=== PATIENT | male | born 1940 | race African-American/Black ===

== ENCOUNTER 2017-07-19 09:19 | Emergency (ER) | payer MEDICARE, OTHER ==
--- NOTE | 2017-07-19 11:00 | ED ---
General Adult HPI - General Chief complaint: Psychiatric Symptoms Stated complaint: Mental Health Time Seen by Provider: 07/19/17 09:29 Source: patient, RN notes reviewed Mode of arrival: ambulatory Limitations: physical limitation - History of Present Illness Initial comments: Patient 76-year-old male who presents emergency room today in the custody of the police. Patient did call 911. He states he was trying to get hold of [facility] and they directed him to call 911. Patient does admit that he did make a statement that he was going to burn down the house with him in it. He states it 's been living with his brother over the last 2 months. States feels that his brother has been taking advantage of him and is worried that he will steal his bank book. He states that his brother continues to show him pictures of the family. 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 Since he does not know really is not familiar with these family members. Patient states he did make the statement that he would burn down the building. He states he has no thoughts of hurting himself or others at this time. He denies any other complaints or symptoms. Patient denies any recent fever, chills, shortness of breath, chest pain, back pain, abdominal pain, nausea or vomiting, numbness or tingling, dysuria or hematuria, constipation or diarrhea, headaches or visual changes, or any other complaints. - Related Data Home Medications Medication Instructions Recorded Confirmed Atenolol [Tenormin] 50 mg PO DAILY 07/19/17 07/19/17 Dorzolamide-Timolol 2%/0.5% 1 drop BOTH EYES BID 07/19/17 07/19/17 [dorzolamide-Timolol 2%/0.5%] Furosemide [Lasix] 20 mg PO DAILY@1100 07/19/17 07/19/17 Latanoprost [Xalatan 0.005%] 1 drop RIGHT EYE HS 07/19/17 07/19/17 Potassium Chloride [Klor-Con 20] 20 meq PO DAILY@1100 07/19/17 07/19/17 Simvastatin [Zocor] 10 mg PO HS 07/19/17 07/19/17 Allergies Allergy/AdvReac Type Severity Reaction Status Date / Time No Known Allergies Allergy Verified 07/19/17 09:41 Review of Systems ROS Statement: Those systems with pertinent positive or pertinent negative responses have been documented in the HPI. ROS Other: All systems not noted in ROS Statement are negative. Past Medical History Past Medical History: Hyperlipidemia, Hypertension History of Any Multi-Drug Resistant Organisms: Unobtainable Additional Past Surgical History / Comment(s): Colonoscopy Past Psychological History: Depression Smoking Status: Never smoker Past Alcohol Use History: None Reported Past Drug Use History: None Reported General Exam - General Exam Comments Initial Comments: General: The patient is awake and alert, in no distress, and does not appear acutely ill. Eye: Pupils are equal, round and reactive to light, extra-ocular movements are intact. No nystagmus. There is normal conjunctiva bilaterally. No signs of icterus. Ears, nose, mouth and throat: There are moist mucous membranes and no oral lesions. Neck: The neck is supple, there is no tenderness or JVD. Cardiovascular: There is a regular rate and rhythm. No murmur, rub or gallop is appreciated. Respiratory: Lungs are clear to auscultation, respirations are non-labored, breath sounds are equal. No wheezes, stridor, rales, or rhonchi. Musculoskeletal: Normal ROM, no tenderness. Strength 5/5. Sensation intact. Pulses equal bilaterally 2+. Neurological: A&O x 3. CN II-XII intact, There are no obvious motor or sensory deficits. Coordination appears grossly intact. Speech is normal. Skin: Skin is warm and dry and no rashes or lesions are noted. Limitations: physical limitation Course Vital Signs 07/19/17 07/19/17 09:23 12:11 Temperature 97.7 F 98.4 F Pulse Rate 58 L 56 L Respiratory 18 20 Rate Blood Pressure 185/91 143/94 O2 Sat by Pulse 98 99 Oximetry Medical Decision Making - Medical Decision Making Patient was seen by mental health here in the emergency room along with social service worker. At this time patient is not suicidal has no homicidal thoughts or ideation. He has been cleared by psych for discharge. Patient has no other complaints are the emergency room will be discharged advised follow-up with family doctor over the next 2 days. Advised return for any concerns. - Lab Data Lab Results 07/19/17 Range/Units 10:08 Urine Opiates Screen Not Detected (NotDetected) Ur Oxycodone Screen Not Detected (NotDetected) Urine Methadone Screen Not Detected (NotDetected) Ur Propoxyphene Screen Not Detected (NotDetected) Ur Barbiturates Screen Not Detected (NotDetected) U Tricyclic Antidepress Not Detected (NotDetected) Ur Phencyclidine Scrn Not Detected (NotDetected) Ur Amphetamines Screen Not Detected (NotDetected) U Methamphetamines Scrn Not Detected (NotDetected) U Benzodiazepines Scrn Not Detected (NotDetected) Urine Cocaine Screen Not Detected (NotDetected) U Marijuana (THC) Screen Not Detected (NotDetected) Disposition Clinical Impression: Well adult health check Narrative: Social work evaluation Disposition: HOME SELF-CARE Condition: Good Additional Instructions: Please follow-up family doctor over the next 2 days. Please return here to the emergency room for any other concerns. Referrals: Concepcion Miranda MD [Primary Care Provider] - 1-2 days Time of Disposition: 13:30
[2017-07-19 15:42] VITALS: BP 163/83; PULSE 60; RESP 18; TEMP 98
== END 2017-07-19 15:55 | disposition home or self-care (01) ==
LOC: EC 09:19
DX: Z00.8 Encounter for other general examination (principal); H54.8 Legal blindness, as defined in USA; E78.5 Hyperlipidemia, unspecified; I10 Essential (primary) hypertension; Z79.899 Other long term (current) drug therapy
CPT/HCPCS: 80306; 82075; 99284

== ENCOUNTER 2018-06-13 22:39 | Emergency (ER) | payer MEDICARE, OTHER ==
[2018-06-13 23:20] LABS: Appearance,Urine Clear (Clear); Bilirubin,Urine Negative (Negative); Blood,Urine Negative (Negative); Color,Urine Yellow; Glucose,Urine (UA) Negative (Negative); Ketones,Urine Negative (Negative); Leukocyte Esterase,Urine Negative (Negative); Nitrite,Urine Negative (Negative); PH, Urine 5.5 (5.0-8.0); Protein,Urine Negative (Negative); Specific Gravity,Urine 1.011 (1.001-1.035)
[2018-06-13 23:27] LABS: Amphetamine Screen,Urine Not Detected (NotDetected); Barbiturate Screen,Urine Not Detected (NotDetected); Benzodiazepines Screen,Urine Not Detected (NotDetected); Cocaine Screen,Urine Not Detected (NotDetected); Methadone Screen, Urine Not Detected (NotDetected); Opiate Screen,Urine Not Detected (NotDetected); Oxycodone Screen, Urine Not Detected (NotDetected); Phencyclidine Screen,Urine Not Detected (NotDetected); Tricyclic Antidepressant,Urine Not Detected (NotDetected); Urn Cannabinoid Scrn Not Detected (NotDetected)
--- NOTE | 2018-06-13 23:47 | XR ---
EXAMINATION TYPE: XR chest 2V DATE OF EXAM: 06/13/2018 COMPARISON: 04/04/2013 HISTORY: Altered mental status TECHNIQUE: Frontal and lateral views of the chest are obtained. FINDINGS: There is no heart failure nor confluent pneumonic infiltrate. Costophrenic angles are cheryl r. Bony thorax is intact. IMPRESSION: No active cardiopulmonary disease. No change.
--- NOTE | 2018-06-13 23:47 | ED ---
Psych HPI - General Source: patient, family Mode of arrival: wheelchair <Patrick Mendiola - Last Filed: 06/14/18 01:34> <Otoniel Caba - Last Filed: 06/14/18 03:26> - General Chief Complaint: Psychiatric Symptoms Stated Complaint: suicidal Time Seen by Provider: 06/13/18 22:59 - History of Present Illness Initial Comments: 77 years old male complaining about some confusion ongoing, he stated he has been more confused often he loses track of time. He denies any headaches no blurred vision no slurred speech no stiff neck no chest pain no shortness of breath is complaining about term poor appetite and some constipation but no abdominal pain no frequency urgency dysuria. He told his caregiver issac that he wants to jump in the river. He was attempted to jump in the few weeks ago but he got lost because she can't see well (Patrick Mendiola) - Related Data Home Medications Medication Instructions Recorded Confirmed Atenolol [Tenormin] 50 mg PO DAILY 07/19/17 06/13/18 Dorzolamide-Timolol 2%/0.5% 1 drop BOTH EYES BID 07/19/17 06/13/18 [dorzolamide-Timolol 2%/0.5%] Furosemide [Lasix] 20 mg PO DAILY 07/19/17 06/13/18 Latanoprost [Xalatan 0.005%] 1 drop RIGHT EYE HS 07/19/17 06/13/18 Potassium Chloride [Klor-Con 20] 20 meq PO DAILY@1100 07/19/17 06/13/18 Simvastatin [Zocor] 10 mg PO HS 07/19/17 06/13/18 Allergies Allergy/AdvReac Type Severity Reaction Status Date / Time No Known Allergies Allergy Verified 06/13/18 23:05 Review of Systems ROS Other: All systems not noted in ROS Statement are negative. <Patrick Mendiola - Last Filed: 06/14/18 01:34> ROS Other: All systems not noted in ROS Statement are negative. <Otoniel Caba - Last Filed: 06/14/18 03:26> ROS Statement: Those systems with pertinent positive or pertinent negative responses have been documented in the HPI. Past Medical History Past Medical History: Hyperlipidemia, Hypertension History of Any Multi-Drug Resistant Organisms: Unobtainable Additional Past Surgical History / Comment(s): Colonoscopy Past Psychological History: Depression Smoking Status: Never smoker Past Alcohol Use History: None Reported Past Drug Use History: None Reported <MauryPoPatrick - Last Filed: 06/14/18 01:34> General Exam Limitations: no limitations <MauryPatrick - Last Filed: 06/14/18 01:34> <Otoniel Caba - Last Filed: 06/14/18 03:26> - General Exam Comments Initial Comments: General: The patient is awake and alert, in no distress, and does not appear acutely ill. GCS is 15 Skin: Skin is warm and dry and no rashes or lesions are noted. Eye: Pupils are equal, round and reactive to light, extra-ocular movements are intact; there is normal conjunctiva bilaterally. Ears, nose, mouth and throat: There are moist mucous membranes and no oral lesions. Neck: The neck is supple, there is no tenderness no signs of meningitis Cardiovascular: There is a regular rate and rhythm. No murmur, rub or gallop is appreciated. Respiratory: To auscultation bilateral, no wheezing no rhonchi no distress respiratory miller noticed Gastrointestinal: Soft, non-distended, positive bowel sounds no guarding no rebounds. Back: There is no tenderness to palpation in the midline. There is no obvious deformity. Musculoskeletal: Normal ROM, no tenderness, There is no pedal edema. There is no calf tenderness or swelling. No cords were appreciated. Neurological: CN II-XII intact, Cranial nerves III through XII are intact. There are no obvious motor or sensory deficits. Coordination appears grossly intact. Speech is normal. Psychiatric: Cooperative, appropriate mood & affect, normal judgment. (Patrick Mendiola) Course <Patrick Mendiola - Last Filed: 06/14/18 01:34> <Otoniel Caba - Last Filed: 06/14/18 03:26> Vital Signs 06/13/18 22:42 Temperature 98.5 F Pulse Rate 56 L Respiratory 18 Rate Blood Pressure 156/107 O2 Sat by Pulse 97 Oximetry Considering his confusion, do a head CT and basic blood work and will consult EPS. Patient's CBC, CMP, urinalysis, chest x-ray, head CT is unremarkable will consult the EPS now EKG is sinus bradycardia ventricular rate is 62 [place] interval is 174, religious is 82 QT/QTc is 440/02/22/1950 CK G does not reveal any ST elevation or ST depression. Patient endorsed to Dr. Caba at 1:34 AM (Patrick Mendiola) Medical Decision Making - Lab Data Result diagrams: 06/13/18 23:30 06/13/18 23:30 <Patrick Mendiola - Last Filed: 06/14/18 01:34> - Lab Data Result diagrams: 06/13/18 23:30 06/13/18 23:30 <Otoniel Caba - Last Filed: 06/14/18 03:26> - Medical Decision Making Patient is sent out to me by previous shift physician. Briefly, patient is 77- year-old male who is reportedly suicidal. He allegedly went down to their attempt to jump into the river a suicidal attempt however he reports that he got lost and was just 1 [address]. Patient presents today because someone concerned that he was suicidal. Patient is not suicidal at this time. Patient does have a pedigree tracer that takes care of him. Patient is here today because he wants to be in a structured environment. Patient is reevaluated by myself not psychotic. Patient clear for discharge to care of pedigree tracer. They' re given outpatient psych information. (Otoniel Caba) - Lab Data Lab Results 06/13/18 06/13/18 06/13/18 Range/Units 23:05 23:05 23:05 WBC (3.8-10.6) k/uL RBC (4.30-5.90) m/uL Hgb (13.0-17.5) gm/dL Hct (39.0-53.0) % MCV (80.0-100.0) fL MCH (25.0-35.0) pg MCHC (31.0-37.0) g/dL RDW (11.5-15.5) % Plt Count (150-450) k/uL Neutrophils % % Lymphocytes % % Monocytes % % Eosinophils % % Basophils % % Neutrophils # (1.3-7.7) k/uL Lymphocytes # (1.0-4.8) k/uL Monocytes # (0-1.0) k/uL Eosinophils # (0-0.7) k/uL Basophils # (0-0.2) k/uL PT (9.0-12.0) sec INR (<1.2) APTT (22.0-30.0) sec Sodium (137-145) mmol/L Potassium (3.5-5.1) mmol/L Chloride (98-107) mmol/L Carbon Dioxide (22-30) mmol/L Anion Gap mmol/L BUN (9-20) mg/dL Creatinine (0.66-1.25) mg/dL Est GFR (CKD-EPI)AfAm (>60 ml/min/1.73 sqM) Est GFR (CKD-EPI)NonAf (>60 ml/min/1.73 sqM) Glucose (74-99) mg/dL Calcium (8.4-10.2) mg/dL Total Bilirubin (0.2-1.3) mg/dL AST (17-59) U/L ALT (21-72) U/L Alkaline Phosphatase (38-126) U/L Total Creatine Kinase (55-170) U/L CK-MB (CK-2) (0.0-2.4) ng/mL CK-MB (CK-2) Rel Index Troponin I (0.000-0.034) ng/mL Total Protein (6.3-8.2) g/dL Albumin (3.5-5.0) g/dL Urine Color Yellow Yellow Urine Appearance Clear Clear (Clear) Urine pH 5.5 5.5 (5.0-8.0) Ur Specific [place] 1.011 1.012 (1.001-1.035) Urine Protein Negative Negative (Negative) Urine Glucose (UA) Negative Negative (Negative) Urine Ketones Negative Negative (Negative) Urine Blood Negative Negative (Negative) Urine Nitrite Negative Negative (Negative) Urine Bilirubin Negative Negative (Negative) Urine Urobilinogen 2.0 2.0 (<2.0) mg/dL Ur Leukocyte Esterase Negative Negative (Negative) Urine Opiates Screen Not Detected (NotDetected) Ur Oxycodone Screen Not Detected (NotDetected) Urine Methadone Screen Not Detected (NotDetected) Ur Propoxyphene Screen Not Detected (NotDetected) Ur Barbiturates Screen Not Detected (NotDetected) U Tricyclic Antidepress Not Detected (NotDetected) Ur Phencyclidine Scrn Not Detected (NotDetected) Ur Amphetamines Screen Not Detected (NotDetected) U Methamphetamines Scrn Not Detected (NotDetected) U Benzodiazepines Scrn Not Detected (NotDetected) Urine Cocaine Screen Not Detected (NotDetected) U Marijuana (THC) Screen Not Detected (NotDetected) 06/13/18 06/13/18 06/13/18 Range/Units 23:30 23:30 23:30 WBC 3.6 L (3.8-10.6) k/uL RBC 4.26 L (4.30-5.90) m/uL Hgb 13.6 (13.0-17.5) gm/dL Hct 40.6 (39.0-53.0) % MCV 95.2 (80.0-100.0) fL MCH 32.0 (25.0-35.0) pg MCHC 33.7 (31.0-37.0) g/dL RDW 13.3 (11.5-15.5) % Plt Count 112 L (150-450) k/uL Neutrophils % 41 % Lymphocytes % 47 % Monocytes % 4 % Eosinophils % 6 % Basophils % 0 % Neutrophils # 1.5 (1.3-7.7) k/uL Lymphocytes # 1.7 (1.0-4.8) k/uL Monocytes # 0.2 (0-1.0) k/uL Eosinophils # 0.2 (0-0.7) k/uL Basophils # 0.0 (0-0.2) k/uL PT (9.0-12.0) sec INR (<1.2) APTT (22.0-30.0) sec Sodium 142 (137-145) mmol/L Potassium 3.8 (3.5-5.1) mmol/L Chloride 109 H (98-107) mmol/L Carbon Dioxide 28 (22-30) mmol/L Anion Gap 5 mmol/L BUN 11 (9-20) mg/dL Creatinine 0.90 (0.66-1.25) mg/dL Est GFR (CKD-EPI)AfAm >90 (>60 ml/min/1.73 sqM) Est GFR (CKD-EPI)NonAf 82 (>60 ml/min/1.73 sqM) Glucose 143 H (74-99) mg/dL Calcium 9.1 (8.4-10.2) mg/dL Total Bilirubin 0.6 (0.2-1.3) mg/dL AST 25 (17-59) U/L ALT 28 (21-72) U/L Alkaline Phosphatase 101 (38-126) U/L Total Creatine Kinase 82 (55-170) U/L CK-MB (CK-2) 0.5 (0.0-2.4) ng/mL CK-MB (CK-2) Rel Index 0.6 Troponin I <0.012 (0.000-0.034) ng/mL Total Protein 6.2 L (6.3-8.2) g/dL Albumin 4.1 (3.5-5.0) g/dL Urine Color Urine Appearance (Clear) Urine pH (5.0-8.0) Ur Specific [place] (1.001-1.035) Urine Protein (Negative) Urine Glucose (UA) (Negative) Urine Ketones (Negative) Urine Blood (Negative) Urine Nitrite (Negative) Urine Bilirubin (Negative) Urine Urobilinogen (<2.0) mg/dL Ur Leukocyte Esterase (Negative) Urine Opiates Screen (NotDetected) Ur Oxycodone Screen (NotDetected) Urine Methadone Screen (NotDetected) Ur Propoxyphene Screen (NotDetected) Ur Barbiturates Screen (NotDetected) U Tricyclic Antidepress (NotDetected) Ur Phencyclidine Scrn (NotDetected) Ur Amphetamines Screen (NotDetected) U Methamphetamines Scrn (NotDetected) U Benzodiazepines Scrn (NotDetected) Urine Cocaine Screen (NotDetected) U Marijuana (THC) Screen (NotDetected) 06/13/18 Range/Units 23:30 WBC (3.8-10.6) k/uL RBC (4.30-5.90) m/uL Hgb (13.0-17.5) gm/dL Hct (39.0-53.0) % MCV (80.0-100.0) fL MCH (25.0-35.0) pg MCHC (31.0-37.0) g/dL RDW (11.5-15.5) % Plt Count (150-450) k/uL Neutrophils % % Lymphocytes % % Monocytes % % Eosinophils % % Basophils % % Neutrophils # (1.3-7.7) k/uL Lymphocytes # (1.0-4.8) k/uL Monocytes # (0-1.0) k/uL Eosinophils # (0-0.7) k/uL Basophils # (0-0.2) k/uL PT 9.9 (9.0-12.0) sec INR 1.0 (<1.2) APTT 23.2 (22.0-30.0) sec Sodium (137-145) mmol/L Potassium (3.5-5.1) mmol/L Chloride (98-107) mmol/L Carbon Dioxide (22-30) mmol/L Anion Gap mmol/L BUN (9-20) mg/dL Creatinine (0.66-1.25) mg/dL Est GFR (CKD-EPI)AfAm (>60 ml/min/1.73 sqM) Est GFR (CKD-EPI)NonAf (>60 ml/min/1.73 sqM) Glucose (74-99) mg/dL Calcium (8.4-10.2) mg/dL Total Bilirubin (0.2-1.3) mg/dL AST (17-59) U/L ALT (21-72) U/L Alkaline Phosphatase (38-126) U/L Total Creatine Kinase (55-170) U/L CK-MB (CK-2) (0.0-2.4) ng/mL CK-MB (CK-2) Rel Index Troponin I (0.000-0.034) ng/mL Total Protein (6.3-8.2) g/dL Albumin (3.5-5.0) g/dL Urine Color Urine Appearance (Clear) Urine pH (5.0-8.0) Ur Specific [place] (1.001-1.035) Urine Protein (Negative) Urine Glucose (UA) (Negative) Urine Ketones (Negative) Urine Blood (Negative) Urine Nitrite (Negative) Urine Bilirubin (Negative) Urine Urobilinogen (<2.0) mg/dL Ur Leukocyte Esterase (Negative) Urine Opiates Screen (NotDetected) Ur Oxycodone Screen (NotDetected) Urine Methadone Screen (NotDetected) Ur Propoxyphene Screen (NotDetected) Ur Barbiturates Screen (NotDetected) U Tricyclic Antidepress (NotDetected) Ur Phencyclidine Scrn (NotDetected) Ur Amphetamines Screen (NotDetected) U Methamphetamines Scrn (NotDetected) U Benzodiazepines Scrn (NotDetected) Urine Cocaine Screen (NotDetected) U Marijuana (THC) Screen (NotDetected) Disposition <Patrick Mendiola - Last Filed: 06/14/18 01:34> Is patient prescribed a controlled substance at d/c from ED?: No Time of Disposition: 03:25 <Otoniel Caba - Last Filed: 06/14/18 03:26> Clinical Impression: Confusion, Suicidal ideations, Planning to commit suicide Disposition: HOME SELF-CARE Condition: Fair Instructions: Altered Mental Status (ED) Referrals: Concepcion Miranda MD [Primary Care Provider] - 1-2 days
[2018-06-13 23:52] LABS: Basophils % (A) 0 %; Eosinophils # (A) 0.2 k/uL (0-0.7); Eosinophils % (A) 6 %; HCT 40.6 % (39.0-53.0); HGB 13.6 gm/dL (13.0-17.5); Lymphocytes # (A) 1.7 k/uL (1.0-4.8); Lymphocytes % (A) 47 %; MCHC 33.7 g/dL (31.0-37.0); MCV 95.2 fL (80.0-100.0); Monocytes # (A) 0.2 k/uL (0-1.0); Monocytes % (A) 4 %; Neutrophils # (A) 1.5 k/uL (1.3-7.7); Neutrophils % (A) 41 %; Platelet Count 112 k/uL (150-450); RBC 4.26 m/uL (4.30-5.90); RDW 13.3 % (11.5-15.5); WBC 3.6 k/uL (3.8-10.6)
--- NOTE | 2018-06-13 23:58 | CT ---
EXAMINATION TYPE: CT brain wo con DATE OF EXAM: 06/13/2018 COMPARISON: None HISTORY: No prior, frequent confusion, depression CT DLP: 1133.30 mGycm Automated exposure control for dose reduction was used. FINDINGS: There is some cerebral cortical atrophy. There is no mass effect nor midline shift. There is no sign of intracranial hemorrhage. Calvarium is intact. IMPRESSION: CEREBRAL ATROPHY. NO ACUTE INTRACRANIAL ABNORMALITY.
[2018-06-14 00:03] LABS: ALT 28 U/L (21-72); AST 25 U/L (17-59); Albumin 4.1 g/dL (3.5-5.0); Alkaline Phosphatase 101 U/L (38-126); Anion Gap 5 mmol/L; Blood Urea Nitrogen 11 mg/dL (9-20); Calcium 9.1 mg/dL (8.4-10.2); Carbon Dioxide 28 mmol/L (22-30); Chloride 109 mmol/L (98-107); Glucose 143 mg/dL (74-99); Potassium 3.8 mmol/L (3.5-5.1); Sodium 142 mmol/L (137-145); Total Bilirubin 0.6 mg/dL (0.2-1.3); Total Protein 6.2 g/dL (6.3-8.2)
[2018-06-14 00:12] LABS: Creatine Kinase 82 U/L (55-170)
[2018-06-14 00:14] LABS: Partial Thromboplastin Time 23.2 sec (22.0-30.0); Prothrombin Time 9.9 sec (9.0-12.0)
[2018-06-14 00:23] LABS: Creatine Kinase MB 0.5 ng/mL (0.0-2.4); Troponin I <0.012 ng/mL (0.000-0.034)
[2018-06-14 00:39] LABS: Appearance,Urine Clear (Clear); Bilirubin,Urine Negative (Negative); Blood,Urine Negative (Negative); Color,Urine Yellow; Glucose,Urine (UA) Negative (Negative); Ketones,Urine Negative (Negative); Leukocyte Esterase,Urine Negative (Negative); Nitrite,Urine Negative (Negative); PH, Urine 5.5 (5.0-8.0); Protein,Urine Negative (Negative); Specific Gravity,Urine 1.012 (1.001-1.035)
[2018-06-14 03:58] VITALS: BP 155/92; PULSE 59; RESP 16; TEMP 97.6
== END 2018-06-14 04:04 | disposition home or self-care (01) ==
LOC: EC 22:39
DX: R45.851 Suicidal ideations (principal); R41.0 Disorientation, unspecified; R40.2412 Glasgow coma scale score 13-15, at arrival to emergency department; F32.9 Major depressive disorder, single episode, unspecified; E78.5 Hyperlipidemia, unspecified; I10 Essential (primary) hypertension; Z79.899 Other long term (current) drug therapy
CPT/HCPCS: 36415; 70450; 71046; 80053; 80306; 81003; 82075; 82550; 82553; 84484; 85025; 85610; 85730; 99285

== ENCOUNTER 2019-08-21 20:33 | Emergency (ER) | payer MEDICARE, OTHER ==
[2019-08-21 20:58] VITALS: BP 146/86; PULSE 60; RESP 18; TEMP 98
--- NOTE | 2019-08-21 22:07 | ED ---
General Adult HPI - General Chief complaint: Psychiatric Symptoms Stated complaint: Constipation Time Seen by Provider: 08/21/19 21:08 Source: patient, EMS Mode of arrival: EMS Limitations: no limitations - History of Present Illness Initial comments: 's patient is a 78-year-old man who complains of having problem passing bowel movement today. He states that he attempted to have bowel movement but the stool was very hard and he was having difficult time passing it. He states that it did seem to improve when he was some toilet paper and hold this against his anus. He states that this is been a problem today. He did have bowel movement 2 days ago. No abdominal pain. No vomiting. He did have some brief nausea. -: hour(s) Quality: sharp Consistency: now resolved Improves with: none Worsens with: none Associated Symptoms: denies other symptoms - Related Data Home Medications Medication Instructions Recorded Confirmed Atenolol [Tenormin] 50 mg PO DAILY 07/19/17 08/21/19 Dorzolamide-Timol 2.23%/0.68% 1 drop BOTH EYES BID 07/19/17 08/21/19 [dorzolamide-Timolol 2%/0.5%] Furosemide [Lasix] 20 mg PO DAILY 07/19/17 08/21/19 Latanoprost [Xalatan 0.005%] 1 drop RIGHT EYE HS 07/19/17 08/21/19 Potassium Chloride [Klor-Con 20] 20 meq PO DAILY@1100 07/19/17 08/21/19 Simvastatin [Zocor] 10 mg PO HS 07/19/17 08/21/19 Allergies Allergy/AdvReac Type Severity Reaction Status Date / Time No Known Allergies Allergy Verified 08/21/19 21:50 Review of Systems ROS Statement: Those systems with pertinent positive or pertinent negative responses have been documented in the HPI. ROS Other: All systems not noted in ROS Statement are negative. Constitutional: Denies: fever, chills Respiratory: Denies: cough, dyspnea Cardiovascular: Denies: chest pain, edema Gastrointestinal: Reports: as per HPI, nausea, constipation, other (Perianal pain). Denies: vomiting, diarrhea, hematemesis, melena, hematochezia Genitourinary: Denies: dysuria, hematuria, testicular pain Musculoskeletal: Denies: back pain Skin: Denies: rash Neurological: Denies: headache Past Medical History Past Medical History: Hyperlipidemia, Hypertension History of Any Multi-Drug Resistant Organisms: None Reported Additional Past Surgical History / Comment(s): Colonoscopy Past Psychological History: Depression Smoking Status: Never smoker Past Alcohol Use History: None Reported Past Drug Use History: None Reported General Exam General appearance: alert, in no apparent distress Head exam: Present: atraumatic, normocephalic Eye exam: Present: normal appearance. Absent: scleral icterus, conjunctival injection ENT exam: Present: normal oropharynx Neck exam: Present: normal inspection Respiratory exam: Present: normal lung sounds bilaterally. Absent: respiratory distress, wheezes, rales, rhonchi, stridor Cardiovascular Exam: Present: regular rate, normal rhythm, normal heart sounds. Absent: systolic murmur, diastolic murmur, rubs, gallop GI/Abdominal exam: Present: soft, normal bowel sounds. Absent: distended, tenderness, guarding, rebound, rigid, mass Rectal exam: Present: normal rectal tone, hemorrhoids. Absent: black stool, bl oody stool, fecal impaction, mass, tenderness Extremities exam: Present: normal inspection, normal capillary refill. Absent: pedal edema, calf tenderness Back exam: Present: normal inspection. Absent: CVA tenderness (R), CVA tenderness (L) Neurological exam: Present: alert Skin exam: Present: warm, dry, intact, normal color. Absent: rash Course Vital Signs 08/21/19 20:53 Temperature 98 F Pulse Rate 60 Respiratory 18 Rate Blood Pressure 146/86 O2 Sat by Pulse 96 Oximetry Medical Decision Making - Lab Data Result diagrams: 08/21/19 22:31 08/21/19 22:31 Lab Results 08/21/19 08/21/19 Range/Units 22:31 22:31 WBC 3.5 L (3.8-10.6) k/uL RBC 4.17 L (4.30-5.90) m/uL Hgb 13.2 (13.0-17.5) gm/dL Hct 40.8 (39.0-53.0) % MCV 97.7 (80.0-100.0) fL MCH 31.5 (25.0-35.0) pg MCHC 32.3 (31.0-37.0) g/dL RDW 13.5 (11.5-15.5) % Plt Count 128 L (150-450) k/uL Neutrophils % 43 % Lymphocytes % 44 % Monocytes % 4 % Eosinophils % 6 % Basophils % 0 % Neutrophils # 1.5 (1.3-7.7) k/uL Lymphocytes # 1.5 (1.0-4.8) k/uL Monocytes # 0.2 (0-1.0) k/uL Eosinophils # 0.2 (0-0.7) k/uL Basophils # 0.0 (0-0.2) k/uL Sodium 142 (137-145) mmol/L Potassium 3.9 (3.5-5.1) mmol/L Chloride 109 H (98-107) mmol/L Carbon Dioxide 26 (22-30) mmol/L Anion Gap 7 mmol/L BUN 7 L (9-20) mg/dL Creatinine 0.72 (0.66-1.25) mg/dL Est GFR (CKD-EPI)AfAm >90 (>60 ml/min/1.73 sqM) Est GFR (CKD-EPI)NonAf 89 (>60 ml/min/1.73 sqM) Glucose 109 H (74-99) mg/dL Calcium 9.2 (8.4-10.2) mg/dL Total Bilirubin 0.6 (0.2-1.3) mg/dL AST 20 (17-59) U/L ALT 18 L (21-72) U/L Alkaline Phosphatase 104 (38-126) U/L Total Protein 6.3 (6.3-8.2) g/dL Albumin 3.9 (3.5-5.0) g/dL TSH 1.930 (0.465-4.680) mIU/L Disposition Clinical Impression: Constipation Disposition: HOME SELF-CARE Condition: Good Instructions (If sedation given, give patient instructions): Constipation (DC) Is patient prescribed a controlled substance at d/c from ED?: No Referrals: None,Stated [Primary Care Provider] - 1-2 days
[2019-08-21 23:09] LABS: Basophils % (A) 0 %; Eosinophils # (A) 0.2 k/uL (0-0.7); Eosinophils % (A) 6 %; HCT 40.8 % (39.0-53.0); HGB 13.2 gm/dL (13.0-17.5); Lymphocytes # (A) 1.5 k/uL (1.0-4.8); Lymphocytes % (A) 44 %; MCH 31.5 pg (25.0-35.0); MCHC 32.3 g/dL (31.0-37.0); MCV 97.7 fL (80.0-100.0); Mean Platelet Volume 8.1; Monocytes # (A) 0.2 k/uL (0-1.0); Monocytes % (A) 4 %; Neutrophils # (A) 1.5 k/uL (1.3-7.7); Neutrophils % (A) 43 %; Platelet Count 128 k/uL (150-450); RBC 4.17 m/uL (4.30-5.90); RDW 13.5 % (11.5-15.5); WBC 3.5 k/uL (3.8-10.6)
[2019-08-21] MEDS ORDERED: NA PHOS,M-B/NA PHOS,DI-BA 133 ML ENEMA RECTAL STA (23:10)
[2019-08-21 23:20] LABS: ALT 18 U/L (21-72); AST 20 U/L (17-59); African American GFR (CKD) >90 (>60 ml/min/1.73 sqM); Albumin 3.9 g/dL (3.5-5.0); Alkaline Phosphatase 104 U/L (38-126); Anion Gap 7 mmol/L; Blood Urea Nitrogen 7 mg/dL (9-20); Calcium 9.2 mg/dL (8.4-10.2); Carbon Dioxide 26 mmol/L (22-30); Chloride 109 mmol/L (98-107); Glucose 109 mg/dL (74-99); Potassium 3.9 mmol/L (3.5-5.1); Sodium 142 mmol/L (137-145); Total Bilirubin 0.6 mg/dL (0.2-1.3); Total Protein 6.3 g/dL (6.3-8.2)
--- NOTE | 2019-08-21 23:53 | XR ---
EXAM: XR Abdomen, 1 View CLINICAL HISTORY: Vomiting. TECHNIQUE: Frontal supine view of the abdomen/pelvis. COMPARISON: 06/13/2018. 01/27/2015. FINDINGS: Lower thorax: Cardiomegaly. Intraperitoneal space: No free air. Gastrointestinal tract: Nonspecific bowel gas pattern. No dilation. Bones/joints: Osteopenia. Other findings: Moderate quantity of stool. IMPRESSION: Moderate quantity of stool. Nonspecific bowel gas pattern. No free air. No evidence of obstruction. Cardiomegaly.
[2019-08-22] MEDS ORDERED: PEG 3350-NA SULF,BICARB,CL/KCL 4,000 ML BOTTLE PO ONE (01:00)
== END 2019-08-22 02:32 | disposition home or self-care (01) ==
LOC: EC 20:33
DX: K59.00 Constipation, unspecified (principal); I10 Essential (primary) hypertension; E78.5 Hyperlipidemia, unspecified; Z79.899 Other long term (current) drug therapy
CPT/HCPCS: 36415; 74018; 80053; 82075; 84443; 85025; 99284

== ENCOUNTER 2019-11-30 07:31 | Emergency (ER) | payer MEDICARE, OTHER ==
[2019-11-30 07:45] VITALS: TEMP 98.2
[2019-11-30] MEDS ORDERED: SODIUM CHLORIDE 0.9% 1,000 ML IV STA (07:49)
[2019-11-30] MEDS ORDERED: MECLIZINE 12.5 MG TAB PO STA (07:49)
[2019-11-30] MEDS ORDERED: METOCLOPRAMIDE 5 MG/ML 2 ML VIAL IVP STA (07:49)
--- NOTE | 2019-11-30 07:59 | ED ---
General Adult HPI - General Chief complaint: Dizziness Stated complaint: Dizziness Time Seen by Provider: 11/30/19 07:35 Source: patient, EMS, RN notes reviewed Mode of arrival: EMS Limitations: no limitations - History of Present Illness Initial comments: Patient is a pleasant 79-year-old male presenting to the emergency Department with complaints of dizziness. Onset of symptoms was yesterday after going to the eye doctor. Patient is legally blind. Patient states when he gets up he is dizzy. Patient agrees dizziness as a spinning type sensation. Patient states symptoms resolved when he sits down. Patient did have a near fall yesterday, no injury. Patient denies any confusion or weakness. No speech problems. No history of similar symptoms previously. Patient is currently symptom-free lying in bed. - Related Data Home Medications Medication Instructions Recorded Confirmed Atenolol [Tenormin] 50 mg PO DAILY 07/19/17 08/21/19 Dorzolamide-Timol 2.23%/0.68% 1 drop BOTH EYES BID 07/19/17 08/21/19 [dorzolamide-Timolol 2%/0.5%] Furosemide [Lasix] 20 mg PO DAILY 07/19/17 08/21/19 Latanoprost [Xalatan 0.005%] 1 drop RIGHT EYE HS 07/19/17 08/21/19 Potassium Chloride [Klor-Con 20] 20 meq PO DAILY@1100 07/19/17 08/21/19 Simvastatin [Zocor] 10 mg PO HS 07/19/17 08/21/19 Previous Rx's Medication Instructions Recorded Meclizine [Antivert] 25 mg PO TID PRN #12 tab 11/30/19 Allergies Allergy/AdvReac Type Severity Reaction Status Date / Time No Known Allergies Allergy Verified 08/21/19 21:50 Review of Systems ROS Statement: Those systems with pertinent positive or pertinent negative responses have been documented in the HPI. ROS Other: All systems not noted in ROS Statement are negative. Constitutional: Denies: fever Eyes: Denies: eye pain ENT: Denies: ear pain Respiratory: Denies: cough Cardiovascular: Denies: chest pain Endocrine: Denies: fatigue Gastrointestinal: Denies: abdominal pain Genitourinary: Denies: dysuria Musculoskeletal: Denies: back pain Skin: Denies: rash Neurological: Reports: vertigo. Denies: weakness Past Medical History Past Medical History: Hyperlipidemia, Hypertension Additional Past Medical History / Comment(s): Pt legally blind History of Any Multi-Drug Resistant Organisms: None Reported Additional Past Surgical History / Comment(s): Colonoscopy Past Psychological History: Depression Smoking Status: Never smoker Past Alcohol Use History: None Reported Past Drug Use History: None Reported General Exam Limitations: no limitations General appearance: alert, in no apparent distress Head exam: Present: normocephalic Eye exam: Present: PERRL, other (Disconjugate case. ) ENT exam: Present: normal oropharynx Neck exam: Present: normal inspection Respiratory exam: Present: normal lung sounds bilaterally Cardiovascular Exam: Present: regular rate, normal rhythm GI/Abdominal exam: Present: soft. Absent: tenderness Extremities exam: Present: normal inspection Neurological exam: Present: alert, CN II-XII intact (Except for disconjugate gaze). Absent: motor sensory deficit Expanded Neurological exam: Present: protecting the airway Speech: Present: fluid speech Sensory exam: Upper Extremity Light Touch: Normal, Lower Extremity Light Touch: Normal Motor strength exam: RUE: 5, LUE: 5, RLE: 5, LLE: 5 Eye Response: (4) open spontaneously Motor Response: (6) obeys commands Verbal Response: (5) oriented Psychiatric exam: Present: normal affect, normal mood Skin exam: Present: normal color Course Vital Signs 11/30/19 11/30/19 11/30/19 07:34 08:30 09:00 Temperature 98.2 F Pulse Rate 56 L 58 L 56 L Respiratory 18 20 18 Rate Blood Pressure 186/108 181/110 208/114 O2 Sat by Pulse 100 98 98 Oximetry 11/30/19 11/30/19 09:30 10:00 Temperature Pulse Rate 58 L 61 Respiratory 17 14 Rate Blood Pressure 191/102 175/99 O2 Sat by Pulse 98 98 Oximetry EKG Findings - EKG Comments: EKG Findings:: Sinus bradycardia 55. MN 176. QRS 76. QT 432. QTC 413. Left axis. Normal QRS. No acute ST change. Medical Decision Making - Medical Decision Making Patient reevaluated and feeling better. Patient was able to ambulate without difficulty. Patient and gig tender were updated on results - Lab Data Result diagrams: 11/30/19 08:11 11/30/19 08:11 Lab Results 11/30/19 11/30/19 Range/Units 08:11 08:11 WBC 3.8 (3.8-10.6) k/uL RBC 4.14 L (4.30-5.90) m/uL Hgb 13.2 (13.0-17.5) gm/dL Hct 40.5 (39.0-53.0) % MCV 97.9 (80.0-100.0) fL MCH 32.0 (25.0-35.0) pg MCHC 32.7 (31.0-37.0) g/dL RDW 13.2 (11.5-15.5) % Plt Count 113 L (150-450) k/uL Neutrophils % 58 % Lymphocytes % 29 % Monocytes % 4 % Eosinophils % 7 % Basophils % 2 % Neutrophils # 2.2 (1.3-7.7) k/uL Lymphocytes # 1.1 (1.0-4.8) k/uL Monocytes # 0.2 (0-1.0) k/uL Eosinophils # 0.3 (0-0.7) k/uL Basophils # 0.1 (0-0.2) k/uL Sodium 144 (137-145) mmol/L Potassium 3.8 (3.5-5.1) mmol/L Chloride 110 H (98-107) mmol/L Carbon Dioxide 29 (22-30) mmol/L Anion Gap 5 mmol/L BUN 11 (9-20) mg/dL Creatinine 0.69 (0.66-1.25) mg/dL Est GFR (CKD-EPI)AfAm >90 (>60 ml/min/1.73 sqM) Est GFR (CKD-EPI)NonAf >90 (>60 ml/min/1.73 sqM) Glucose 117 H (74-99) mg/dL Calcium 8.8 (8.4-10.2) mg/dL Total Bilirubin 1.0 (0.2-1.3) mg/dL AST 23 (17-59) U/L ALT 11 (4-49) U/L Alkaline Phosphatase 94 (38-126) U/L Total Protein 6.6 (6.3-8.2) g/dL Albumin 4.0 (3.5-5.0) g/dL - Radiology Data Radiology results: image reviewed (Computed tomography scan of brain shows degenerative changes, no acute abnormality.) Disposition Clinical Impression: Dizziness Disposition: HOME SELF-CARE Condition: Stable Instructions (If sedation given, give patient instructions): Dizziness (ED) Additional Instructions: Please follow-up with primary care physician beginning of the week. Return for increased dizziness, difficulty walking, confusion or weakness or worsening symptoms or other concerns. prescription has been sent to your pharmacy Prescriptions: Meclizine [Antivert] 25 mg PO TID PRN #12 tab PRN Reason: dizziness Is patient prescribed a controlled substance at d/c from ED?: No Referrals: Du Ott [STAFF PHYSICIAN] - 1-2 days Time of Disposition: 11:17
[2019-11-30 08:21] LABS: Basophils # (A) 0.1 k/uL (0-0.2); Basophils % (A) 2 %; Eosinophils # (A) 0.3 k/uL (0-0.7); Eosinophils % (A) 7 %; HCT 40.5 % (39.0-53.0); HGB 13.2 gm/dL (13.0-17.5); Lymphocytes # (A) 1.1 k/uL (1.0-4.8); Lymphocytes % (A) 29 %; MCHC 32.7 g/dL (31.0-37.0); MCV 97.9 fL (80.0-100.0); Monocytes # (A) 0.2 k/uL (0-1.0); Monocytes % (A) 4 %; Neutrophils # (A) 2.2 k/uL (1.3-7.7); Neutrophils % (A) 58 %; Platelet Count 113 k/uL (150-450); RBC 4.14 m/uL (4.30-5.90); RDW 13.2 % (11.5-15.5); WBC 3.8 k/uL (3.8-10.6)
[2019-11-30 08:41] LABS: ALT 11 U/L (4-49); AST 23 U/L (17-59); African American GFR (CKD) >90 (>60 ml/min/1.73 sqM); Alkaline Phosphatase 94 U/L (38-126); Anion Gap 5 mmol/L; Blood Urea Nitrogen 11 mg/dL (9-20); Calcium 8.8 mg/dL (8.4-10.2); Carbon Dioxide 29 mmol/L (22-30); Chloride 110 mmol/L (98-107); Glucose 117 mg/dL (74-99); Non-African American GFR(CKD) >90 (>60 ml/min/1.73 sqM); Potassium 3.8 mmol/L (3.5-5.1); Sodium 144 mmol/L (137-145); Total Protein 6.6 g/dL (6.3-8.2)
[2019-11-30] MEDS ORDERED: ATENOLOL 50 MG TAB PO STA (09:02)
[2019-11-30] MEDS ORDERED: FUROSEMIDE 20 MG TAB PO STA (09:02)
--- NOTE | 2019-11-30 09:02 | CT ---
EXAMINATION TYPE: CT brain wo con DATE OF EXAM: 11/30/2019 COMPARISON: Previous study dated 06/13/2018 HISTORY: Neurod eficit. Dizziness. High blood pressure CT DLP: 1161.4 mGycm Automated exposure control for dose reduction was used. FINDINGS: There are generalized changes of sulcal prominence and ventriculomegaly compatible with atrophic daugherty ge. There is diffuse periventricular white matter lucency compatible with chronic white matter ischem ic change. No acute focal lesion, mass effect or midline shift is seen. I do not see evidence of intr acranial blood. Visualized portions of the paranasal sinuses and mastoids are clear. The bony calvarium is intact. IMPRESSION: 1. NO ACUTE INTRACRANIAL ABNORMALITY. 2. DEGENERATIVE CHANGE.
[2019-11-30] MEDS ORDERED: DIAZEPAM 5 MG/ML 2 ML INJ IVP STA (09:51)
[2019-11-30 11:16] VITALS: BP 151/85; PULSE 55; RESP 18
== END 2019-11-30 11:34 | disposition home or self-care (01) ==
LOC: EC 07:31
DX: R42 Dizziness and giddiness (principal); H54.8 Legal blindness, as defined in USA; E78.5 Hyperlipidemia, unspecified; I10 Essential (primary) hypertension; Z79.899 Other long term (current) drug therapy
CPT/HCPCS: 36415; 93005; 80053; 85025; 70450; 99284; 96374; 96375; 96361 ×3; J2765; J3360

== ENCOUNTER 2019-11-30 23:16 | Inpatient (IN) | payer MEDICARE, OTHER ==
[2019-11-30 23:23] LABS: Glucose,Whole Blood 83 mg/dL (75-99)
[2019-12-01 00:04] LABS: Basophils # (A) 0.1 k/uL (0-0.2); Basophils % (A) 1 %; Eosinophils # (A) 0.3 k/uL (0-0.7); Eosinophils % (A) 7 %; HCT 40.7 % (39.0-53.0); HGB 13.1 gm/dL (13.0-17.5); Lymphocytes # (A) 1.6 k/uL (1.0-4.8); Lymphocytes % (A) 40 %; MCH 31.3 pg (25.0-35.0); MCHC 32.2 g/dL (31.0-37.0); Mean Platelet Volume 9.2; Monocytes # (A) 0.2 k/uL (0-1.0); Monocytes % (A) 5 %; Neutrophils # (A) 1.9 k/uL (1.3-7.7); Neutrophils % (A) 47 %; Platelet Count 132 k/uL (150-450); RBC 4.19 m/uL (4.30-5.90); RDW 13.2 % (11.5-15.5)
[2019-12-01 00:12] LABS: ALT 11 U/L (4-49); AST 23 U/L (17-59); African American GFR (CKD) >90 (>60 ml/min/1.73 sqM); Albumin 3.9 g/dL (3.5-5.0); Alkaline Phosphatase 94 U/L (38-126); Anion Gap 6 mmol/L; Blood Urea Nitrogen 12 mg/dL (9-20); Calcium 8.9 mg/dL (8.4-10.2); Carbon Dioxide 30 mmol/L (22-30); Chloride 108 mmol/L (98-107); Glucose 111 mg/dL (74-99); Non-African American GFR(CKD) 90 (>60 ml/min/1.73 sqM); Potassium 3.9 mmol/L (3.5-5.1); Sodium 144 mmol/L (137-145); Total Bilirubin 0.8 mg/dL (0.2-1.3); Total Protein 6.4 g/dL (6.3-8.2)
[2019-12-01] MEDS ORDERED: NALOXONE 0.4 MG/ML 1 ML VIAL IV PRN (00:22)
--- NOTE | 2019-12-01 00:22 | ED ---
Altered Mental Status HPI - General Chief Complaint: Altered Mental Status Stated Complaint: Altered Mental Status Time Seen by Provider: 11/30/19 23:36 Source: EMS Mode of arrival: EMS Limitations: no limitations, altered mental status - History of Present Illness Initial Comments: This 79-year-old white male presents with a complaint of some confusion. He apparently lives at home by himself in an apartment. He relates that he's been forgetful recently. He is talking about a dream that he had that he thought was very real. He is quite talkative but what he is saying does not seem to make sense. There is nobody here with him at this time. He is denying any complaints medically currently. He was seen in the emergency department earlier today for some dizziness and also had some high blood pressure. He had a computed tomography scan and laboratory analysis at that time was all negative. He apparently does have a healthcare worker that comes to his house several times a week. They saw him earlier in sent him to the emergency department. They felt as though he would need a higher level of care. He apparently is in charge of his medications but he is very confused and they do not feel as though he is taking his medications correctly. They related to the nurse that they thought that he may need more of a long term type setting. No other complaints or modifying factors. - Related Data Home Medications Medication Instructions Recorded Confirmed Atenolol [Tenormin] 50 mg PO DAILY 07/19/17 08/21/19 Dorzolamide-Timol 2.23%/0.68% 1 drop BOTH EYES BID 07/19/17 08/21/19 [dorzolamide-Timolol 2%/0.5%] Furosemide [Lasix] 20 mg PO DAILY 07/19/17 08/21/19 Latanoprost [Xalatan 0.005%] 1 drop RIGHT EYE HS 07/19/17 08/21/19 Potassium Chloride [Klor-Con 20] 20 meq PO DAILY@1100 07/19/17 08/21/19 Simvastatin [Zocor] 10 mg PO HS 07/19/17 08/21/19 Previous Rx's Medication Instructions Recorded Meclizine [Antivert] 25 mg PO TID PRN #12 tab 11/30/19 Allergies Allergy/AdvReac Type Severity Reaction Status Date / Time No Known Allergies Allergy Verified 11/30/19 23:27 Review of Systems ROS Statement: Those systems with pertinent positive or pertinent negative responses have been documented in the HPI. ROS Other: All systems not noted in ROS Statement are negative. Past Medical History Past Medical History: Hyperlipidemia, Hypertension Additional Past Medical History / Comment(s): Pt legally blind, History of Any Multi-Drug Resistant Organisms: None Reported Additional Past Surgical History / Comment(s): Colonoscopy, Past Psychological History: Depression Smoking Status: Never smoker Past Alcohol Use History: None Reported Past Drug Use History: None Reported General Exam - General Exam Comments Initial Comments: GENERAL: The patient is well nourished and well hydrated. VITAL SIGNS: Heart rate, blood pressure, respiratory rate reviewed as recorded in nurse's notes. EYES: Pupils are round and reactive. Extraocular movements are intact. No conjunctival / lid redness or swelling. ENT: No external evidence of injury, swelling, or ecchymosis. Airway is patent. Throat is clear. NECK: Nontender. No swelling or evidence of injury. No subcutaneous emphysema. Trachea is midline. No thyroid mass. HEART: Regular rate and rhythm. Good peripheral pulses. LUNGS/CHEST: Breath sounds clear and equal bilaterally. No rales, rhonchi, or wheezes. No ecchymosis, subcutaneous emphysema, or tenderness. ABDOMEN: Abdomen soft without tenderness. No palpable masses or organomegaly. No peritoneal signs. No abdominal wall swelling or ecchymosis. EXTREMITIES: No extremity tenderness. Normal muscle tone and function. No thoracolumbar tenderness. NEUROLOGIC: Sensation is grossly intact. Cranial nerve exam reveals face is symmetrical, tongue is midline, speech is clear. SKIN: No abrasions or ecchymosis is noted. No induration or masses noted. PSYCHIATRIC: Patient is alert but not oriented. He is quite pleasant and talkative but confused. Limitations: no limitations, altered mental status Course Vital Signs 11/30/19 23:21 Temperature 98.2 F Pulse Rate 58 L Respiratory 18 Rate Blood Pressure 180/97 O2 Sat by Pulse 99 Oximetry Medical Decision Making - Medical Decision Making The patient was seen and examined. All diagnostics are reviewed. His EKG shows a sinus bradycardia at a rate of 58. There is no acute ST T-wave changes noted. There is evidence of left ventricular hypertrophy. The PA intervals 152, QRS duration is 80, and the QTC intervals 410. The laboratories reviewed and is unremarkable. The urinalysis is pending. The patient had a computed tomography scan of the brain earlier today and this is negative. Overall, the patient seems demented. Sounds as though his symptoms have been going on for at least 2 months. It does not appears as though he is in a safe home living situation as he is in charge of his medications and is very confused. Is felt as though he would require admission to the hospital. He may need evaluation by case management for potential placement to a higher level of care. - Lab Data Result diagrams: 11/30/19 23:49 11/30/19 23:49 Lab Results 11/30/19 11/30/19 11/30/19 Range/Units 23:21 23:49 23:49 WBC 4.0 (3.8-10.6) k/uL RBC 4.19 L (4.30-5.90) m/uL Hgb 13.1 (13.0-17.5) gm/dL Hct 40.7 (39.0-53.0) % MCV 97.0 (80.0-100.0) fL MCH 31.3 (25.0-35.0) pg MCHC 32.2 (31.0-37.0) g/dL RDW 13.2 (11.5-15.5) % Plt Count 132 L (150-450) k/uL Neutrophils % 47 % Lymphocytes % 40 % Monocytes % 5 % Eosinophils % 7 % Basophils % 1 % Neutrophils # 1.9 (1.3-7.7) k/uL Lymphocytes # 1.6 (1.0-4.8) k/uL Monocytes # 0.2 (0-1.0) k/uL Eosinophils # 0.3 (0-0.7) k/uL Basophils # 0.1 (0-0.2) k/uL Sodium 144 (137-145) mmol/L Potassium 3.9 (3.5-5.1) mmol/L Chloride 108 H (98-107) mmol/L Carbon Dioxide 30 (22-30) mmol/L Anion Gap 6 mmol/L BUN 12 (9-20) mg/dL Creatinine 0.71 (0.66-1.25) mg/dL Est GFR (CKD-EPI)AfAm >90 (>60 ml/min/1.73 sqM) Est GFR (CKD-EPI)NonAf 90 (>60 ml/min/1.73 sqM) Glucose 111 H (74-99) mg/dL POC Glucose (mg/dL) 83 (75-99) mg/dL POC Glu Relations Liaison ID Monday, Rossi Calcium 8.9 (8.4-10.2) mg/dL Total Bilirubin 0.8 (0.2-1.3) mg/dL AST 23 (17-59) U/L ALT 11 (4-49) U/L Alkaline Phosphatase 94 (38-126) U/L Total Protein 6.4 (6.3-8.2) g/dL Albumin 3.9 (3.5-5.0) g/dL Disposition Clinical Impression: Altered mental status, Dementia Disposition: ADMITTED IP TO THIS HOSP Condition: Fair Is patient prescribed a controlled substance at d/c from ED?: No Referrals: None,Stated [Primary Care Provider] - 1-2 days Time of Disposition: 00:21 Decision Date: 12/01/19 Decision Time: 00:21
[2019-12-01 00:27] LABS: Prothrombin Time 10.2 sec (9.0-12.0)
--- NOTE | 2019-12-01 00:33 | XR ---
EXAMINATION TYPE: XR chest 2V DATE OF EXAM: 12/01/2019 COMPARISON: 06/13/2018 HISTORY: Altered mental status TECHNIQUE: 2 views FINDINGS: There is some mild linear density right lung base. Heart size is normal. There is no pleura l effusion. Bony thorax is intact. IMPRESSION: No active cardiopulmonary disease. Normal heart. No change.
[2019-12-01 00:44] LABS: Partial Thromboplastin Time 21.8 sec (22.0-30.0)
--- NOTE | 2019-12-01 02:03 | P.HPIM ---
History of Present Illness H&P Date: 12/01/19 Patient is a 79-year-old male, legally blind, with a PMH of HTN and HLD who presented to the ED earlier today for dizziness. The patient is a poor historian and has a difficult time recalling the events of the day. The patient's thought process is dissociated and he speaks about unrelated topics for long periods of time. The patient notes that he has a care-taker at home who sees hims almost 5x/week albeit only for sure. When asked regarding his reason for her second visit today, the patient states that he had a dream earlier today which he felt was very real and that he confused the hours of the day, after which he became stressed. The patient lives by himself. He denied additional complaints. He denied chest pain, shortness of breath, nausea, vomiting, fever, chills, abdominal pain, or dizziness. The patient underwent an extensive evaluation in the emergency room with a WBC count of 4, and hgb 13.1, platelets 132, sodium 144, potassium 3.9, chloride 108, BUN 12, creatinine 0.71, and troponin less than 0.012. The patient's chest x-ray was unremarkable, and EKG showed a normal sinus rhythm at 58 bpm with T-wave inversion in lead III. Review of Systems Pertinent positives and negatives as discussed in HPI, a complete review of systems was performed and all other systems are negative. Past Medical History Past Medical History: Hyperlipidemia, Hypertension Additional Past Medical History / Comment(s): Pt legally blind, History of Any Multi-Drug Resistant Organisms: None Reported Additional Past Surgical History / Comment(s): Colonoscopy, Past Psychological History: Depression Smoking Status: Never smoker Past Alcohol Use History: None Reported Past Drug Use History: None Reported Medications and Allergies Home Medications Medication Instructions Recorded Confirmed Type Atenolol [Tenormin] 50 mg PO DAILY 07/19/17 08/21/19 History Dorzolamide-Timol 2.23%/0.68% 1 drop BOTH EYES BID 07/19/17 08/21/19 History [dorzolamide-Timolol 2%/0.5%] Furosemide [Lasix] 20 mg PO DAILY 07/19/17 08/21/19 History Latanoprost [Xalatan 0.005%] 1 drop RIGHT EYE HS 07/19/17 08/21/19 History Potassium Chloride [Klor-Con 20] 20 meq PO DAILY@1100 07/19/17 08/21/19 History Simvastatin [Zocor] 10 mg PO HS 07/19/17 08/21/19 History Meclizine [Antivert] 25 mg PO TID PRN #12 tab 11/30/19 Rx Allergies Allergy/AdvReac Type Severity Reaction Status Date / Time No Known Allergies Allergy Verified 11/30/19 23:27 Physical Exam Vitals: Vital Signs Temp Pulse Resp BP Pulse Ox 12/01/19 01:08 55 L 18 176/98 98 12/01/19 00:49 98.6 F 55 L 18 180/94 97 11/30/19 23:21 98.2 F 58 L 18 180/97 99 Intake and Output 11/30/19 11/30/19 12/01/19 14:59 22:59 06:59 Other: Weight 81.647 kg General: Elderly -Senegalese male, non toxic, no distress, appears at stated age, normal weight Derm: no unusual rashes/lesions no unusual ecchymoses, warm, dry Head: atraumatic, normocephalic, symmetric Eyes: EOMI, no lid lag, anicteric sclera, pupils equal round reactive to light ENT: Nose and ears atraumatic, no thrush, no pharyngeal erythema Neck: No thyromegaly, no cervical lymphadenopathy, trachea midline, supple Mouth: no lip lesion, mucus membranes moist Cardiovascular: S1S2 reg, no murmur, positive posterior tibial pulse bilateral, no edema, capillary refill less than 2 seconds Lungs: CTA bilateral, no rhonchi, no rales , no accessory muscle use Abdominal: soft, nontender to palpation, no guarding, no appreciable organomegaly, normal bowel sounds Ext: no gross muscle atrophy, muscle strength 5 out of 5 in all 4 extremities grossly, no contractures, Neuro: CN II-XI grossly intact, light touch intact all 4 extremities, finger to nose within normal limits, Psych: Alert, awake, oriented only to self and place, not oriented to time, disassociated thought process with tangentiality Results CBC & Chem 7: 11/30/19 23:49 11/30/19 23:49 Labs: Abnormal Lab Results - Last 24 Hours (Table) 11/30/19 11/30/1911/30/20 Range/Units 23:49 23:49 23:49 RBC 4.19 L (4.30-5.90) m/uL Plt Count 132 L (150-450) k/uL APTT 21.8 L (22.0-30.0) sec Chloride 108 H (98-107) mmol/L Glucose 111 H (74-99) mg/dL Assessment and Plan Plan: Altered mental status -Patient lives at home alone, and is thereby not a safe discharge -Possibly sundowning versus dementia -Less likely any additional acute processes patient has no other complaints -public welfare worker consult -F/u UA Thrombocytopenia -Monitor CBC for now Chronic conditions: Hypertension, hyperlipidemia -Continue with home meds DVT prophylaxis -IPCDs The patient is admitted with an anticipated less than 2 midnight stay for ev aluation of AMS CODE STATUS: Full Code Discussed with: Patient Anticipated discharge date: 1-[address]: Home/SNF A total of 35 minutes was spent on the care of this complex patient more than 50% of the time was spent in counseling and care coordination.
[2019-12-01 03:17] LABS: Appearance,Urine Clear (Clear); Bilirubin,Urine Negative (Negative); Blood,Urine Negative (Negative); Color,Urine Yellow; Glucose,Urine (UA) Negative (Negative); Ketones,Urine Negative (Negative); Leukocyte Esterase,Urine Negative (Negative); Nitrite,Urine Negative (Negative); Protein,Urine Negative (Negative); Specific Gravity,Urine 1.014 (1.001-1.035); Urobilinogen,Urine <2.0 mg/dL (<2.0)
[2019-12-01 03:27] LABS: Amphetamine Screen,Urine Not Detected (NotDetected); Barbiturate Screen,Urine Not Detected (NotDetected); Benzodiazepines Screen,Urine Detected (NotDetected); Cocaine Screen,Urine Not Detected (NotDetected); Methadone Screen, Urine Not Detected (NotDetected); Opiate Screen,Urine Not Detected (NotDetected); Oxycodone Screen, Urine Not Detected (NotDetected); Phencyclidine Screen,Urine Not Detected (NotDetected); Tricyclic Antidepressant,Urine Not Detected (NotDetected); Urn Cannabinoid Scrn Not Detected (NotDetected)
[2019-12-01] MEDS ORDERED: MECLIZINE 25 MG TAB PO PRN (06:00)
[2019-12-01] MEDS ORDERED: hydrALAZINE HCL 10 MG TAB PO PRN (07:42)
[2019-12-01] MEDS: POTASSIUM CHLORIDE ER 20 MEQ TAB.ER PO SCH (08:49)
[2019-12-01] MEDS: DORZOLAMIDE-TIMOLOL 2.23%/0.68 10ML BTL BOTH EYES SCH ×2 (08:49→19:51)
[2019-12-01] MEDS: ONDANSETRON 4 MG/2 ML VIAL IVP PRN (08:49)
[2019-12-01] MEDS: PANTOPRAZOLE 40 MG/10 ML VIAL IV SCH (08:49)
[2019-12-01] MEDS: amLODIPine 5 MG TAB PO SCH (08:50)
[2019-12-01] MEDS ORDERED: ATENOLOL 50 MG TAB PO SCH (09:00)
[2019-12-01] MEDS ORDERED: FUROSEMIDE 20 MG TAB PO SCH (09:00)
[2019-12-01] MEDS ORDERED: ENOXAPARIN 40 MG/0.4 ML SYRINGE SQ SCH (09:00)
[2019-12-01 09:12] LABS: Glucose,Whole Blood 135 mg/dL (75-99)
--- NOTE | 2019-12-01 09:35 | P.PN ---
Progress Note - Text Progress Note Date: 12/01/19 patient is seen and examined, he is confused a little bit, but get reoriented easily. he is alert oriented to place (with encouragement ) and person he is reporting new onset dizziness, and vertigo. he was confused yesterday when he thought it was daytime after midnight and wanted to go out for a walk. he is feeling unsteady when walking otherwise, he reports that he does not feel safe taking care of himself where he lives right now, and was wondering if he qualifies for [facility] he is having troubling urinating his symptoms suggestive of BPH his blood pressure is high, continue with PRN hydralazin for systolic blood pressure above 180 while standing discontinue lasix, patient has dry skin, and having trouble urinating , he currently seems to be euvolemic patient poor historian and chatters with tangential thoughts, he talks about god and angels all the time plan obtain head CT , due to AMS , new onset dizizness and vertigo fall precautions adjust blood pressure meds discontinue lasix add flomax check bladder scan post void PT eval psychosocial rehabilitation counselor for placement antivert PRN fall precaution s neuro checks
[2019-12-01] MEDS: BRIMONIDINE TARTRATE 0.2% DROPS 5 ML BTL RIGHT EYE SCH ×2 (10:24→19:51)
[2019-12-01] MEDS: TAMSULOSIN 0.4 MG CAP.ER.24H PO SCH (10:25)
--- NOTE | 2019-12-01 10:29 | CT ---
EXAMINATION TYPE: CT brain wo con DATE OF EXAM: 12/01/2019 COMPARISON: Previous study dated 11/30/2019. HISTORY: Altered mental status CT DLP: 1098.4 mGycm Automated exposure control for dose reduction was used. FINDINGS: There are mild, generalized changes of sulcal prominence and ventriculomegaly, compatible with atroph ic change. There is diffuse periventricular white matter lucency, compatible with chronic white matte r ischemic change. There is no acute focal lesion, mass effect or midline shift identified. I do not see evidence of intracranial blood. Visualized portions of the paranasal sinuses and mastoids are clear. IMPRESSION: 1. NO ACUTE INTRACRANIAL LESION. 2. DEGENERATIVE CHANGE.
[2019-12-01] MEDS: HEPARIN SODIUM,PORCINE 5,000 UNIT/ML 1 ML VIAL SQ SCH ×2 (16:36→21:55)
--- NOTE | 2019-12-01 17:41 | P.CNNES ---
History of Present Illness Consult date: 12/01/19 Reason for Consult: mental status changes Chief complaint: dizziness and falls History of Present Illness: The patient is a 79-year-old gentleman who is seen in neurologic consultation on December 01, 2019, via teleneurology. Patient is a poor historian. He reports that he has been passing out, dizzy and falling. He says if he tries to get up, he falls. He apparently lives alone in an apartment. He is legally blind. He does report having a caregiver who comes to his apartment 2 times per week. Patient reports that he does not cook, because he is unable to see. He has difficulty caring for himself, because of his lack of vision. He does report having some difficulty with his memory. He says he forgets to take his medication at times. In regards to his current admission, the patient reports that he was feeling dizzy and was unable to find the pull cord to ask for assistance, at his apartment. He then was able to make his way into the bathroom however, he was unable to find the pill cord in the bathroom either. He says that he got down on the floor, because he felt like he was going to pass out. He eventually was able to get help and someone called 911. This history is somewhat inconsistent and difficult to follow when the patient is reporting it. His speech is very tangential. Review of Systems Difficult to assess Past Medical History Past Medical History: Hyperlipidemia, Hypertension Additional Past Medical History / Comment(s): Pt legally blind, History of Any Multi-Drug Resistant Organisms: None Reported Additional Past Surgical History / Comment(s): Colonoscopy, Past Psychological History: Depression Smoking Status: Never smoker Past Alcohol Use History: None Reported Past Drug Use History: None Reported Medications and Allergies Home Medications Medication Instructions Recorded Confirmed Type Atenolol [Tenormin] 50 mg PO DAILY 07/19/17 12/01/19 History Dorzolamide-Timol 2.23%/0.68% 1 drop BOTH EYES BID 07/19/17 12/01/19 History [dorzolamide-Timolol 2%/0.5%] Latanoprost [Xalatan 0.005%] 1 drop RIGHT EYE HS 07/19/17 12/01/19 History Potassium Chloride [Klor-Con 20] 20 meq PO DAILY 07/19/17 12/01/19 History Simvastatin [Zocor] 10 mg PO HS 07/19/17 12/01/19 History Brimonidine Tartrate [Alphagan P 1 drops RIGHT EYE BID 12/01/19 12/01/19 History 0.2% Ophth Soln] Allergies Allergy/AdvReac Type Severity Reaction Status Date / Time No Known Allergies Allergy Verified 11/30/19 23:27 Physical Examination - Vital Signs Vital Signs: Vital Signs Temp Pulse Pulse Resp BP BP BP 12/01/19 15:00 97.9 F 58 L 17 12/01/19 09:45 195/83 177/89 12/01/19 08:00 52 L 17 12/01/19 07:00 98.3 F 52 L 17 12/01/19 02:00 51 L 16 12/01/19 01:29 98.0 F 51 L 16 12/01/19 01:08 55 L 18 176/98 12/01/19 00:49 98.6 F 55 L 18 180/94 11/30/19 23:21 98.2 F 58 L 18 180/97 BP BP Pulse Ox 12/01/19 15:00 121/75 96 12/01/19 09:45 168/82 12/01/19 08:00 12/01/19 07:00 175/79 99 12/01/19 02:00 12/01/19 01:29 187/87 99 12/01/19 01:08 98 12/01/19 00:49 97 11/30/19 23:21 99 Intake and Output 12/01/19 12/01/19 12/01/19 06:59 14:59 22:59 Output Total 355 Balance -355 Output: Post Void Residual 355 Other: Voiding Method Toilet Toilet Urinal Urinal # Voids 5 Weight 81.647 kg Gen.: The patient is a thin, male who is in no acute distress. HEENT: Head is atraumatic, normocephalic. Fundus not visualized. There is no scleral icterus. Mucous membranes are moist. Heart: Regular rate and rhythm Extremities: Without edema Neurological examination Mental status: The patient is awake, alert and oriented to his location, date of , month and president. He reports the year as "2018" and his age as "80". The patient is able to accurately spell "world" forward and backwards. He is able to perform serial threes from 20. There is no right/left confusion. There is no finger agnosia. The patient's speech is clear, tangential and hyperverbal . Cranial nerves: Pupils are unequal. Right pupil reacts to light. The left pupil does not there is left exophoria. Patient has very limited vision. He is able to distinguish right from dark. He is unable to count fingers. Extraocular movements are intact. Facial sensation is intact. There is no facial asymmetry. Hearing is diminished bilaterally. Uvula and palate are midline. Shoulder shrug is symmetric. Tongue protrudes midline. Motor: Strength is 4/5 throughout. Sensation: Grossly intact to light touch Coordination: Finger to nose testing is intact Deep tendon reflexes: 2+/4+ throughout Gait: Not assessed Results - Laboratory Findings CBC and BMP: 11/30/19 23:49 11/30/19 23:49 Abnormal Lab Findings: Abnormal Labs 11/30/19 11/30/19 11/30/19 23:49 23:49 23:49 RBC 4.19 L Plt Count 132 L APTT 21.8 L Chloride 108 H Glucose 111 H POC Glucose (mg/dL) U Benzodiazepines Scrn 12/01/19 12/01/19 01:46 09:00 RBC Plt Count APTT Chloride Glucose POC Glucose (mg/dL) 135 H U Benzodiazepines Scrn Detected H Assessment and Plan Assessment: Impressions: 1. Frequent falls, dizziness and ataxia in a patient with visual loss. 2. Reported memory loss 3. Bradycardia Plan: Recommendations: 1. This patient is unsafe to be living alone because of his visual loss and memory loss. He is at risk for falling and injuring himself 2. Consider cardiology evaluation regarding bradycardia Time with Patient: Greater than 30 (40 minutes spent with patient)
[2019-12-01] MEDS: ATORVASTATIN 10 MG TAB PO SCH (19:52)
[2019-12-01] MEDS: LATANOPROST 0.005% OPHTH DROPS 2.5 ML BTL RIGHT EYE SCH (19:52)
[2019-12-02] MEDS: HEPARIN SODIUM,PORCINE 5,000 UNIT/ML 1 ML VIAL SQ SCH ×2 (08:05→15:48)
[2019-12-02] MEDS: amLODIPine 5 MG TAB PO SCH (08:09)
[2019-12-02] MEDS: BRIMONIDINE TARTRATE 0.2% DROPS 5 ML BTL RIGHT EYE SCH ×2 (08:09→21:45)
[2019-12-02] MEDS: LATANOPROST 0.005% OPHTH DROPS 2.5 ML BTL RIGHT EYE SCH (08:09)
[2019-12-02] MEDS: TAMSULOSIN 0.4 MG CAP.ER.24H PO SCH (08:09)
[2019-12-02] MEDS: POTASSIUM CHLORIDE ER 20 MEQ TAB.ER PO SCH (08:09)
[2019-12-02] MEDS: DORZOLAMIDE-TIMOLOL 2.23%/0.68 10ML BTL BOTH EYES SCH ×2 (08:10→21:45)
[2019-12-02] MEDS: PANTOPRAZOLE 40 MG/10 ML VIAL IV SCH (08:10)
[2019-12-02] MEDS ORDERED: ATENOLOL 25 MG TAB PO SCH (09:00)
[2019-12-02] MEDS ORDERED: HALOPERIDOL LACTATE 5 MG/ML 1 ML VIAL IM STA (09:12)
[2019-12-02 10:36] LABS: Hepatitis A Antibody IgM Non-Reactive (Non-Reactive); Hepatitis B Core IgM Non-Reactive (Non-Reactive); Hepatitis B Surface Antigen Non-Reactive (Non-Reactive); Hepatitis C IgG Antibody Non-Reactive (Non-Reactive)
[2019-12-02] MEDS: ONDANSETRON 4 MG/2 ML VIAL IVP PRN (12:55)
[2019-12-02] MEDS ORDERED: SODIUM CHLORIDE 0.9% 1,000 ML IV ONE (13:21)
--- NOTE | 2019-12-02 13:27 | P.PN ---
Subjective Progress Note Date: 12/02/19 Principal diagnosis: follow up for dizzy , unsteady gait patient seen and examined , @9 am patient was agitated and aggressive threatening to leave this morning. 1 dose of halidol 1 mg IM given @1322 now I was called by RN due to lightheadedness , heart rate 46 systolic blood pressure >110 oxygen sat 97 on 2 LPM no chest pain no trouble breathing patient is cold clammy diaphoretic. and feels dizzy following commands Objective - Vital Signs Vital signs: Vital Signs Temp 98.2 F 12/02/19 07:00 Pulse 55 L 12/02/19 07:37 Resp 12 12/02/19 07:00 BP 178/95 12/02/19 07:00 Pulse Ox 94 L 12/02/19 07:00 Intake & Output 12/01/19 12/02/19 12/02/19 18:59 06:59 18:59 Output Total 355 100 40 Balance -355 -100 -40 Output: Urine 100 Post Void Residual 355 40 Other: Voiding Method Toilet Toilet Toilet Urinal Urinal Urinal # Voids 5 - Exam patient is dizzy, responds to gentle verbal stimulation . lungs clear to auscultation bilaterally , no wheezing heart normal s1 s2, bradycardia, no murmurs, no peripheral edema abd soft lax, no tenderness, bs positive, abd wall hernia extremities, palpable pulses, no leg edema bilaterally - Labs CBC & Chem 7: 11/30/19 23:49 12/02/19 15:26 Assessment and Plan Assessment: 79 year old male , legally blind, hypertension poorly controlled, and hyperlipidemia. He presented from home due to dizziness and unsteady gait. he was evaluated by neurology , who recommended no further workup, and thought to be unlikely from underlying neurology insult patient heart rate has been in the mid 40- mid 50s range since admission. his normal atenolol dose was cut in half upon admission with hold parameters. 12/01 patient confused a little bit, but get reoriented easily. he is alert oriented to place (with encouragement ) and person he is reporting new onset dizziness, and vertigo. he was confused yesterday when he thought it was daytime after midnight and wanted to go out for a walk. he is feeling unsteady when walking otherwise, he reports that he does not feel safe taking care of himself where he lives right now, and was wondering if he qualifies for custodial Plan: assessment dizziness, unsteady gait, r/o neurological causes neurology evaluation , recommended no further neuro workup, and to consider car angelina eval CT brain no acute process neurochecks Sinus bradycardia, symptomatic cardiology consult discontinue atenolol EKG shows sinus bradycardia , no acute T wave changes blood sugar wnl await cardio recs transfer to selective (cardiac unit) d/c atenolol (dose was halfed upon admission with hold parameters) close monitoring check cardiac enzymes CMP CBC continue cardiac monitoring check echo fall precautions hypertension urgency , resolved resume home meds atenolol DC due to giovanny cardia continue amlodipin BPH flomax follow up PVR Legally blind 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
[2019-12-02 14:12] LABS: Glucose,Whole Blood 104 mg/dL (75-99)
[2019-12-02 15:59] LABS: ALT 12 U/L (4-49); AST 28 U/L (17-59); African American GFR (CKD) >90 (>60 ml/min/1.73 sqM); Albumin 3.8 g/dL (3.5-5.0); Alkaline Phosphatase 99 U/L (38-126); Anion Gap 5 mmol/L; Blood Urea Nitrogen 15 mg/dL (9-20); Calcium 8.8 mg/dL (8.4-10.2); Carbon Dioxide 27 mmol/L (22-30); Chloride 111 mmol/L (98-107); Glucose 134 mg/dL (74-99); Non-African American GFR(CKD) 86 (>60 ml/min/1.73 sqM); Sodium 143 mmol/L (137-145); Total Bilirubin 0.7 mg/dL (0.2-1.3); Total Protein 6.4 g/dL (6.3-8.2)
[2019-12-02 16:00] LABS: Basophils % (A) 1 %; Eosinophils # (A) 0.2 k/uL (0-0.7); Eosinophils % (A) 3 %; HGB 14.1 gm/dL (13.0-17.5); Lymphocytes # (A) 1.2 k/uL (1.0-4.8); Lymphocytes % (A) 19 %; MCH 31.9 pg (25.0-35.0); MCHC 32.7 g/dL (31.0-37.0); MCV 97.6 fL (80.0-100.0); Mean Platelet Volume 9.6; Monocytes # (A) 0.3 k/uL (0-1.0); Monocytes % (A) 4 %; Neutrophils # (A) 4.9 k/uL (1.3-7.7); Neutrophils % (A) 73 %; Platelet Count 104 k/uL (150-450); RBC 4.41 m/uL (4.30-5.90); RDW 13.1 % (11.5-15.5); WBC 6.7 k/uL (3.8-10.6)
[2019-12-02 16:53] LABS: Creatine Kinase 192 U/L (55-170)
[2019-12-02 17:06] LABS: Creatine Kinase MB 1.1 ng/mL (0.0-2.4); Troponin I <0.012 ng/mL (0.000-0.034)
[2019-12-02] MEDS: ATORVASTATIN 10 MG TAB PO SCH (20:27)
[2019-12-03] MEDS: HEPARIN SODIUM,PORCINE 5,000 UNIT/ML 1 ML VIAL SQ SCH ×3 (00:37→16:12)
[2019-12-03] MEDS: TAMSULOSIN 0.4 MG CAP.ER.24H PO SCH (08:36)
[2019-12-03] MEDS: amLODIPine 5 MG TAB PO SCH ×2 (08:36→20:18)
[2019-12-03] MEDS: PANTOPRAZOLE 40 MG/10 ML VIAL IV SCH (08:36)
[2019-12-03] MEDS: DORZOLAMIDE-TIMOLOL 2.23%/0.68 10ML BTL BOTH EYES SCH ×2 (08:37→20:18)
[2019-12-03] MEDS: BRIMONIDINE TARTRATE 0.2% DROPS 5 ML BTL RIGHT EYE SCH ×2 (08:37→20:19)
--- NOTE | 2019-12-03 11:29 | P.CRDCN ---
History of Present Illness History of present illness: This is Eli Campbell PA-C dictating a consult on this patient The patient was interviewed and examined by me as well as by Dr. Rose Case discussed with Dr. Rose and he agrees with the plan of care HPI Patient is a 79-year-old male with a past medical history significant for hypertension, dyslipidemia, and legally blind few presented with altered status. The patient is a poor historian and cannot recall why he came to the hospital. His history was obtained from the chart. He apparently came in with confusion and memory issues. Brain CT and chest x-ray negative for acute process. He was admitted for further evaluation. Cardiology is consulted for bradycardia. 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 He was noted to be bradycardic in the 50s in the emergency department. His EKG shows sinus mechanism, normal AL, nonspecific T- wave changes inferiorly. He does take atenolol 50 mg at home, and it is being held currently. His heart rates have remained in the 60s with few episodes of bradycardia in the 50s. He has been hypertensive. Patient seen and examined sitting up at the side of the bed. Denies any dizziness, headache, chest pain or shortness of breath. ROS: Unable to obtain secondary to patient is a poor historian EXAMINATION: Patient is afebrile, pulse in the 50s, respirations 16, blood pressure 166/82, oxygen saturation 99% on 2 L nasal cannula Patient seen and examined sitting up at the side of the bed, appears comfortable, in no acute distress Lungs are clear to auscultation bilaterally Heart is regular, no audible murmurs no lower extremity edema Abdomen soft and nontender REVIEW OF LABS, ECG & MEDICAL DATA WBC 6.7, hemoglobin 14.1, platelets 204, potassium was 3.9 upon admission, repeat potassium today is pending, BUN 15, creatinine 0.78 Troponins negative TSH within normal limits IMPRESSION / ASSESSMENT: Sinus bradycardia in the 50s, asymptomatic Hypertension, uncontrolled Dyslipidemia Altered mental status, etiology unknown, possible dementia, neurology has been consulted Legally blind PLAN: Continue to monitor telemetry Continue holding atenolol Monitor BMP Increase amlodipine to 5 mg twice daily Past Medical History Past Medical History: Hyperlipidemia, Hypertension Additional Past Medical History / Comment(s): Pt legally blind, History of Any Multi-Drug Resistant Organisms: None Reported Additional Past Surgical History / Comment(s): Colonoscopy, Past Psychological History: Depression Smoking Status: Never smoker Past Alcohol Use History: None Reported Past Drug Use History: None Reported Medications and Allergies Home Medications Medication Instructions Recorded Confirmed Type Atenolol [Tenormin] 50 mg PO DAILY 07/19/17 12/01/19 History Dorzolamide-Timol 2.23%/0.68% 1 drop BOTH EYES BID 07/19/17 12/01/19 History [dorzolamide-Timolol 2%/0.5%] Latanoprost [Xalatan 0.005%] 1 drop RIGHT EYE HS 07/19/17 12/01/19 History Potassium Chloride [Klor-Con 20] 20 meq PO DAILY 07/19/17 12/01/19 History Simvastatin [Zocor] 10 mg PO HS 07/19/17 12/01/19 History Brimonidine Tartrate [Alphagan P 1 drops RIGHT EYE BID 12/01/19 12/01/19 History 0.2% Ophth Soln] Allergies Allergy/AdvReac Type Severity Reaction Status Date / Time No Known Allergies Allergy Verified 11/30/19 23:27 Physical Exam Vitals: Vital Signs Temp Pulse Pulse Resp BP BP BP 12/03/19 10:44 180/90 12/03/19 08:00 97.7 F 57 L 16 166/82 12/03/19 03:45 98 F 54 L 17 150/79 12/03/19 00:00 71 12/02/19 20:00 63 17 156/72 12/02/19 14:36 53 L 53 L 12 12/02/19 14:16 53 L 12 150/69 Pulse Ox 12/03/19 10:44 12/03/19 08:00 99 12/03/19 03:45 99 12/03/19 00:00 12/02/19 20:00 99 12/02/19 14:36 12/02/19 14:16 Intake and Output 12/02/19 12/03/19 12/03/19 22:59 06:59 14:59 Intake Total 230 200 Output Total 200 146 Balance 30 -146 200 Intake: Oral 230 200 Output: Urine 200 Post Void Residual 146 Other: Voiding Method Toilet Toilet Urinal Urinal # Voids 1 Weight 78.4 kg Results 12/02/19 15:26 12/02/19 15:26 Cardiac Enzymes 12/02/19 12/02/19 Range/Units 15:26 16:21 AST 28 (17-59) U/L CK-MB (CK-2) 1.1 (0.0-2.4) ng/mL Troponin I <0.012 (0.000-0.034) ng/mL CBC 12/02/19 Range/Units 15:26 WBC 6.7 (3.8-10.6) k/uL RBC 4.41 (4.30-5.90) m/uL Hgb 14.1 (13.0-17.5) gm/dL Hct 43.0 (39.0-53.0) % Plt Count 104 L (150-450) k/uL Comprehensive Metabolic Panel 12/02/19 Range/Units 15:26 Sodium 143 (137-145) mmol/L Potassium (3.5-5.1) mmol/L Chloride 111 H (98-107) mmol/L Carbon Dioxide 27 (22-30) mmol/L BUN 15 (9-20) mg/dL Creatinine 0.78 (0.66-1.25) mg/dL Glucose 134 H (74-99) mg/dL Calcium 8.8 (8.4-10.2) mg/dL AST 28 (17-59) U/L ALT 12 (4-49) U/L Alkaline Phosphatase 99 (38-126) U/L Total Protein 6.4 (6.3-8.2) g/dL Albumin 3.8 (3.5-5.0) g/dL Current Medications Generic Name Dose Route Start Last Admin Trade Name Freq PRN Reason Stop Dose Admin Amlodipine Besylate 5 mg 12/03/19 21:00 Norvasc PO BID YOLANDA Atorvastatin Calcium 10 mg 12/01/19 21:00 12/02/19 20:27 Lipitor PO 10 mg HS YOLANDA Administration Brimonidine Tartrate 1 drops 12/01/19 09:00 12/03/19 08:37 Alphagan P 0.2% Ophth Soln RIGHT EYE 1 drops BID YOLANDA Administration Dorzolamide/Timolol 1 drops 12/01/19 09:00 12/03/19 08:37 Cosopt BOTH EYES 1 drops BID YOLANDA Administration Heparin Sodium (Porcine) 5,000 unit 12/01/19 16:00 12/03/19 08:36 Heparin SQ 5,000 unit Q8HR YOLANDA Administration Hydralazine HCl 10 mg 12/01/19 07:42 Apresoline PO QID PRN Blood Pressure - High Latanoprost 1 drops 12/01/19 21:00 12/02/19 08:09 Xalatan 0.005% RIGHT EYE 1 drops HS YOLANDA Administration Meclizine HCl 25 mg 12/01/19 06:00 12/01/19 08:49 Antivert PO 25 mg TID PRN Administration dizziness Naloxone HCl 0.2 mg 12/01/19 00:22 Narcan IV Q2M PRN Opioid Reversal Ondansetron HCl 4 mg 12/01/19 07:42 12/02/19 12:55 Zofran IVP 4 mg Q6HR PRN Administration Nausea And Vomiting Pantoprazole Sodium 40 mg 12/01/19 09:00 12/03/19 08:36 Protonix IV 40 mg DAILY YOLANDA Administration Potassium Chloride 20 meq 12/01/19 11:00 12/02/19 08:09 K-Dur 20 PO 20 meq DAILY@1100 YOLANDA Administration Tamsulosin HCl 0.4 mg 12/01/19 09:45 12/03/19 08:36 Flomax PO 0.4 mg [id number] YOLANDA Administration Intake and Output 12/02/19 12/03/19 12/03/19 22:59 06:59 14:59 Intake Total 230 200 Output Total 200 146 Balance 30 -146 200 Intake: Oral 230 200 Output: Urine 200 Post Void Residual 146 Other: Voiding Method Toilet Toilet Urinal Urinal # Voids 1 Weight 78.4 kg 12/02/19 15:26 12/02/19 15:26
[2019-12-03] MEDS: POTASSIUM CHLORIDE ER 20 MEQ TAB.ER PO SCH (12:28)
--- NOTE | 2019-12-03 13:11 | P.PN ---
Subjective Progress Note Date: 12/03/19 Principal diagnosis: follow up for dizzy , unsteady gait patient seen and examined , doing better today, he feels sharper and even reported his vision feels better. denies any dizziness denies chest pain or trouble breathing heart rate iis in high 50s range Objective - Vital Signs Vital signs: Vital Signs Temp 98.1 F 12/03/19 11:57 Pulse 59 L 12/03/19 11:57 Resp 16 12/03/19 11:57 BP 151/92 12/03/19 11:57 Pulse Ox 99 12/03/19 11:57 Intake & Output 12/02/19 12/03/19 12/03/19 18:59 06:59 18:59 Intake Total 230 200 Output Total 40 346 Balance 190 -346 200 Weight 78.4 kg Intake: Oral 230 200 Output: Urine 200 Post Void Residual 40 146 Other: Voiding Method Toilet Toilet Urinal Urinal # Voids 1 - Exam patient is alert oriented to place adn person , pleasant lungs clear to auscultation bilaterally , no wheezing cardiac normal s1 s2, bradycardia, no murmurs, no peripheral edema abd soft lax, no tenderness, bs positive, abd wall hernia extremities, palpable pulses, no leg edema bilaterally - Labs CBC & Chem 7: 12/02/19 15:26 12/02/19 15:26 Labs: Abnormal Lab Results - Last 24 Hours (Table) 12/02/19 12/02/19 12/02/19 Range/Units 13:00 15:26 15:26 Plt Count 104 L (150-450) k/uL Chloride 111 H (98-107) mmol/L Glucose 134 H (74-99) mg/dL POC Glucose (mg/dL) 104 H (75-99) mg/dL Total Creatine Kinase (55-170) U/L 12/02/19 Range/Units 16:21 Plt Count (150-450) k/uL Chloride (98-107) mmol/L Glucose (74-99) mg/dL POC Glucose (mg/dL) (75-99) mg/dL Total Creatine Kinase 192 H (55-170) U/L Assessment and Plan Assessment: 79 year old male , legally blind, hypertension poorly controlled, and hyperlipidemia. He presented from home due to dizziness and unsteady gait. he was evaluated by neurology , who recommended no further workup, and thought to be unlikely from underlying neurology insult patient heart rate has been in the mid 40- mid 50s range since admission. his normal atenolol dose was cut in half upon admission with hold parameters. 12/01 patient confused a little bit, but get reoriented easily. he is alert oriented to place (with encouragement ) and person he is reporting new onset dizziness, and vertigo. he was confused yesterday when he thought it was daytime after midnight and wanted to go out for a walk. he is feeling unsteady when walking otherwise, he reports that he does not feel safe taking care of himself where he lives right now, and was wondering if he qualifies for jail 12/02 episode of symptomatic bradycardia , atenolol was discontinued patinet moved to the cardiac unit for close monitoring EKG shows sinus bradycardia , no acute T wave changes blood sugar wnl 12/03 patient doing better today , heart rate remains in the upper 50s range, amlodipine dose adjusted for better blood pressure control discharge planning Plan: dizziness, unsteady gait, improving , most likely secondary to bradycardia neurology evaluation , recommended no further neuro workup CT brain no acute process neurochecks Sinus bradycardia, symptomatic cardiology following discontinue atenolol close monitoring continue cardiac monitoring fall precautions hypertension urgency , resolved resume home meds atenolol DC due to giovanny cardia continue amlodipin, dose adjusted hydralazine prn for systolic >180 BPH flomax follow up PVR Legally blind 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
--- NOTE | 2019-12-03 19:13 | ECHOF ---
Referral Reason:sinus bradycardia MEASUREMENTS -------- HEIGHT: 177.8 cm WEIGHT: 81.6 kg BP: RVIDd: 3.3 cm (< 3.3) IVSd: 1.3 cm (0.6 - 1.1) LVIDd: 4.0 cm (3.9 - 5.3) LVPWd: 1.3 cm (0.6 - 1.1) IVSs: 2.0 cm LVIDs: 2.7 cm LVPWs: 1.7 cm LA Diam: 3.2 cm (2.7 - 3.8) LAESV Index (A-L): 22.53 ml/m Ao Diam: 3.5 cm (2.0 - 3.7) AV Cusp: 2.1 cm (1.5 - 2.6) MV EXCURSION: 15.792 mm (> 18.000) MV EF SLOPE: 29 mm/s (70 - 150) EPSS: 0.2 cm MV E Jay: 0.63 m/s MV DecT: 368 ms MV A Jay: 0.66 m/s MV E/A Ratio: 0.95 AR PHT: 1103 ms RAP: 5.00 mmHg RVSP: 26.51 mmHg TAPSE: 19.91 mm FINDINGS -------- Sinus rhythm. This was a technically good study. The left ventricular size is normal. There is mild concentric left ventricular hypertrophy. Overa ll left ventricular systolic function is normal with, an EF between 60 - 65 %. The right ventricle is mildly enlarged. Normal LA size by volume 22+/-6 ml/m2. The right atrium is normal in size. Interatrial and interventricular septum intact. The aortic valve is trileaflet and appears structurally normal. There is mild aortic regurgitation. Mild mitral regurgitation is present. Mild tricuspid regurgitation present. Right ventricular systolic pressure is normal at < 35 mmHg. Trace/mild (physiologic) pulmonic regurgitation. The aortic root size is normal. Normal inferior vena cava with normal inspiratory collapse consistent with estimated right atrial pre ssure of 5 mmHg. There is no pericardial effusion. CONCLUSIONS -------- 1. Sinus rhythm. 2. This was a technically good study. 3. The left ventricular size is normal. 4. There is mild concentric left ventricular hypertrophy. 5. Overall left ventricular systolic function is normal with, an EF between 60 - 65 %. 6. The right ventricle is mildly enlarged. 7. Normal LA size by volume 22+/-6 ml/m2. 8. The right atrium is normal in size. 9. Interatrial and interventricular septum intact. 10. The aortic valve is trileaflet and appears structurally normal. 11. There is mild aortic regurgitation. 12. Mild mitral regurgitation is present. 13. Mild tricuspid regurgitation present. 14. Right ventricular systolic pressure is normal at < 35 mmHg. 15. Trace/mild (physiologic) pulmonic regurgitation. 16. The aortic root size is normal. 17. Normal inferior vena cava with normal inspiratory collapse consistent with estimated right atrial pressure of 5 mmHg. 18. There is no pericardial effusion. GAS CHARGER: Brittney Ricks RDCS
[2019-12-03] MEDS: ATORVASTATIN 10 MG TAB PO SCH (20:18)
[2019-12-03] MEDS: LATANOPROST 0.005% OPHTH DROPS 2.5 ML BTL RIGHT EYE SCH (20:18)
[2019-12-04] MEDS: HEPARIN SODIUM,PORCINE 5,000 UNIT/ML 1 ML VIAL SQ SCH ×2 (00:09→08:24)
[2019-12-04 07:13] LABS: Basophils % (A) 1 %; Eosinophils # (A) 0.2 k/uL (0-0.7); Eosinophils % (A) 5 %; HCT 43.7 % (39.0-53.0); HGB 14.1 gm/dL (13.0-17.5); Lymphocytes # (A) 1.7 k/uL (1.0-4.8); Lymphocytes % (A) 40 %; MCH 31.4 pg (25.0-35.0); MCHC 32.3 g/dL (31.0-37.0); MCV 97.2 fL (80.0-100.0); Mean Platelet Volume 8.8; Monocytes # (A) 0.3 k/uL (0-1.0); Monocytes % (A) 6 %; Neutrophils % (A) 46 %; Platelet Count 114 k/uL (150-450); WBC 4.3 k/uL (3.8-10.6)
[2019-12-04 07:32] LABS: African American GFR (CKD) >90 (>60 ml/min/1.73 sqM); Anion Gap 7 mmol/L; Blood Urea Nitrogen 13 mg/dL (9-20); Calcium 8.9 mg/dL (8.4-10.2); Carbon Dioxide 26 mmol/L (22-30); Chloride 107 mmol/L (98-107); Glucose 105 mg/dL (74-99); Non-African American GFR(CKD) 90 (>60 ml/min/1.73 sqM); Potassium 3.7 mmol/L (3.5-5.1); Sodium 140 mmol/L (137-145)
[2019-12-04] MEDS: amLODIPine 5 MG TAB PO SCH (08:24)
[2019-12-04] MEDS: TAMSULOSIN 0.4 MG CAP.ER.24H PO SCH (08:24)
[2019-12-04] MEDS: DORZOLAMIDE-TIMOLOL 2.23%/0.68 10ML BTL BOTH EYES SCH (08:44)
[2019-12-04] MEDS: BRIMONIDINE TARTRATE 0.2% DROPS 5 ML BTL RIGHT EYE SCH (08:44)
[2019-12-04] MEDS ORDERED: PANTOPRAZOLE 40 MG TABLET PO SCH (09:00)
[2019-12-04 09:14] VITALS: BP 166/98; PULSE 90; RESP 18; TEMP 98.7
--- NOTE | 2019-12-04 10:36 | P.DS ---
Providers Date of admission: 12/02/19 08:29 Attending physician: Rohan Qiu MD Consults: 12/01/19 09:36 Consult Physician Routine Consulting Provider: Teena Muñoz Consult Reason/Comments: vertigo, dizziness, new onset, unsteady gait Do you want consulting provider notified?: Yes 12/01/19 18:42 Consult Physician Routine Consulting Provider: Williams Huynh Consult Reason/Comments: BRADYCARDIA, DIZZY Do you want consulting provider notified?: Yes, Notify in am Primary care physician: Stated None Hospital Course: final diagnosis at discharge Symptomatic sinus bradycardia 2/2 atenolol side effect hypertensive urgency BPH legally blind 79 year old male , legally blind, hypertension poorly controlled, and hyperlipidemia. He presented from home due to dizziness and unsteady gait. he was evaluated by neurology , who recommended no further workup, and thought to be unlikely from underlying neurology insult patient heart rate has been in the mid 40- mid 50s range since admission. his normal atenolol dose was cut in half upon admission with hold parameters. 12/01 patient confused a little bit, but get reoriented easily. he is alert oriented to place (with encouragement ) and person he is reporting new onset dizziness, and vertigo. he was confused yesterday when he thought it was daytime after midnight and wanted to go out for a walk. he is feeling unsteady when walking otherwise, he reports that he does not feel safe taking care of himself where he lives right now, and was wondering if he qualifies for group home 12/02 episode of symptomatic bradycardia , atenolol was discontinued patinet moved to the cardiac unit for close monitoring EKG shows sinus bradycardia , no acute T wave changes blood sugar wnl 12/03 patient doing better today , heart rate remains in the upper 50s range, amlodipine dose adjusted for better blood pressure control discharge planning 12/04 patient doing better, denies any dizziness while standing up, denies chest pain or trouble breathing , i discussed with cardiology, they are OK for discharge as long as his heart rate normalized. BP still in range of 150-160 for systolic ,asymptomatic. renal function within normal limits labs unremarkable General alert oriented to place , person , pleasant , conversant lungs clear to auscultation bilaterally , no wheezing cardiac normal s1 s2, regular rate and rhythm, no murmurs, no peripheral edema abd soft lax, no tenderness, bs positive, abd wall hernia extremities, palpable pulses, no leg edema bilaterally discharge home in stable clinical condition meds prescriptions sent to preferred pharmacy follow up with PCP and Cardiology set up with Home health care upon discharge 35 minutes were spent discharging this patient, and more than 50% of the time w as spent in counseling the patient and family and in coordinating care. Patient Condition at Discharge: Stable Plan - Discharge Summary Discharge Rx Participant: No New Discharge Prescriptions: New Meclizine [Antivert] 25 mg PO TID PRN #30 tab PRN Reason: dizziness Tamsulosin [Flomax] 0.4 mg PO PC-BRKFST #30 cap.er.24h amLODIPine [Norvasc] 5 mg PO BID #60 tab Pantoprazole [Protonix] 40 mg PO DAILY #30 tablet. Continue Simvastatin [Zocor] 10 mg PO HS Brimonidine Tartrate [Alphagan P 0.2% Ophth Soln] 1 drops RIGHT EYE BID #1 bottle Dorzolamide-Timol 2.23%/0.68% [Cosopt] 1 drop BOTH EYES BID #1 bottle Potassium Chloride [Klor-Con 20] 20 meq PO DAILY #30 tab Latanoprost [Xalatan 0.005%] 1 drop RIGHT EYE HS #2.5 ml Discontinued Atenolol [Tenormin] 50 mg PO DAILY Discharge Medication List Simvastatin [Zocor] 10 mg PO HS 07/19/17 [History] Brimonidine Tartrate [Alphagan P 0.2% Ophth Soln] 1 drops RIGHT EYE BID #1 bottle 12/04/19 [Rx] Dorzolamide-Timol 2.23%/0.68% [Cosopt] 1 drop BOTH EYES BID #1 bottle 12/04/19 [Rx] Latanoprost [Xalatan 0.005%] 1 drop RIGHT EYE HS #2.5 ml 12/04/19 [Rx] Meclizine [Antivert] 25 mg PO TID PRN #30 tab 12/04/19 [Rx] Pantoprazole [Protonix] 40 mg PO DAILY #30 tablet. 12/04/19 [Rx] Potassium Chloride [Klor-Con 20] 20 meq PO DAILY #30 tab 12/04/19 [Rx] Tamsulosin [Flomax] 0.4 mg PO PC-BRKFST #30 cap.er.24h 12/04/19 [Rx] amLODIPine [Norvasc] 5 mg PO BID #60 tab 12/04/19 [Rx] Follow up Appointment(s)/Referral(s): Sameer Rose MD [STAFF PHYSICIAN] - 12/11/19 3:00 pm (Monday) [facility], [NON-STAFF] - None,Stated [Primary Care Provider] - 1-2 days Patient Instructions/Handouts: Dizziness (ED), Heart Healthy Diet (DC), Bradycardia (DC) Discharge Disposition: HOME WITH HOME HEALTH SERVICES Plan of Treatment: adjustments made to your medications dizziness was due to slow heart rate caused by Atenolol (blood pressure medicine) side effect , that we stopped flomax will help you with difficulty in urination
--- NOTE | 2019-12-04 16:27 | P.PN ---
Subjective This is Eli Campbell PA-C dictating a progress note on this patient The patient was interviewed and examined by me as well as by Dr. Rose Case discussed with Dr. Rose and he agrees with the plan of care HPI/interval history Patient is a 79-year-old male with a past medical history of hypertension, dyslipidemia, and legally blind who presented with altered mental status. Cardiology was consulted for bradycardia. His atenolol was held. Yesterday we increased his amlodipine he seems to have tolerated this. Overnight he had some episodes of bradycardia in the 40s but no significant pauses. He has been in the 70s during the day. Patient is seen and examined resting in bed. Denies shortness of breath or chest pain. States sometimes when he gets up to use the bathroom he gets a little dizzy but has not had any falls. No dizziness recently. No syncope. EXAMINATION Patient is afebrile, pulse in the 80s, respirations 18, blood pressure 166/91, oxygen saturation 96% on room air Patient seen and examined resting in bed, appears comfortable, in no acute distress Lungs are clear to auscultation bilaterally Heart is regular, no audible murmurs no lower extremity edema REVIEW OF LABS, ECG WBC 4.3, hemoglobin 14.1, platelets 114, potassium 3.7, BUN 13, creatinine 0.71 IMPRESSION / ASSESSMENT: Sinus bradycardia asymptomatic Hypertension, pressure has improved but remains elevated Dyslipidemia Altered mental status, etiology unknown, possible dementia, neurology has been consulted Legally blind PLAN: Continue amlodipine 10 mg daily Continue holding atenolol No further cardiac workup at this time Objective - Vital Signs Vital signs: Vital Signs Temp 98.7 F 12/04/19 08:00 Pulse 90 12/04/19 08:00 Resp 18 12/04/19 08:00 BP 166/98 12/04/19 08:00 Pulse Ox 96 12/04/19 08:00 Intake & Output 12/03/19 12/04/19 12/04/19 18:59 06:59 18:59 Intake Total 600 120 Output Total 900 Balance -300 120 Weight 78.4 kg Intake: Oral 600 120 Output: Urine 900 Other: Voiding Method Toilet Toilet # Voids 2 1 1 - Labs CBC & Chem 7: 12/04/19 06:34 01/29/20 06:34 Labs: Abnormal Lab Results - Last 24 Hours (Table) 12/04/19 12/04/19 Range/Units 06:34 06:34 Plt Count 114 L (150-450) k/uL Glucose 105 H (74-99) mg/dL
== END 2019-12-04 11:44 | disposition home health service (06) | DRG 305 ==
LOC: EC 23:16 → 4SSUR 12-01 00:22 → OBSVTOIN 12-02 08:29 → 3SCARD 12-02 13:31
PROVIDERS: ADMIT Internal Medicine; ATTEND Internal Medicine
DX: I16.0 Hypertensive urgency (principal); D69.6 Thrombocytopenia, unspecified; F03.90 Unspecified dementia, unspecified severity, without behavioral disturbance, psychotic disturbance, mood disturbance, and anxiety; I11.9 Hypertensive heart disease without heart failure; H54.8 Legal blindness, as defined in USA; E78.5 Hyperlipidemia, unspecified; R29.6 Repeated falls; R00.1 Bradycardia, unspecified; R27.0 Ataxia, unspecified; N40.0 Benign prostatic hyperplasia without lower urinary tract symptoms; Z86.59 Personal history of other mental and behavioral disorders; Z79.899 Other long term (current) drug therapy
CPT/HCPCS: 36415; 70450; 71046; 80048; 80053; 80074; 80306; 81003; 82550; 82553; 84443; 84484; 85025; 85610; 85730; 93005; 93306; 96361; 96374; 96375; 99284; 99285

== ENCOUNTER 2019-12-04 14:21 | Inpatient (IN) | payer MEDICARE, OTHER ==
[2019-12-04 14:31] LABS: Glucose,Whole Blood 134 mg/dL (75-99)
[2019-12-04] MEDS ORDERED: SODIUM CHLORIDE 0.9% 500 ML 500 ML IV STA (14:31)
[2019-12-04] MEDS ORDERED: SODIUM CHLORIDE 0.9% 1,000 ML IV STA (14:31)
[2019-12-04 15:08] LABS: Basophils # (A) 0.1 k/uL (0-0.2); Basophils % (A) 1 %; Eosinophils # (A) 0.3 k/uL (0-0.7); Eosinophils % (A) 5 %; HCT 44.9 % (39.0-53.0); HGB 14.5 gm/dL (13.0-17.5); Lymphocytes # (A) 1.4 k/uL (1.0-4.8); Lymphocytes % (A) 27 %; MCH 31.6 pg (25.0-35.0); MCHC 32.2 g/dL (31.0-37.0); MCV 98.2 fL (80.0-100.0); Mean Platelet Volume 8.8; Monocytes # (A) 0.2 k/uL (0-1.0); Monocytes % (A) 4 %; Neutrophils # (A) 3.4 k/uL (1.3-7.7); Neutrophils % (A) 62 %; Platelet Count 137 k/uL (150-450); RBC 4.58 m/uL (4.30-5.90); RDW 13.2 % (11.5-15.5); WBC 5.4 k/uL (3.8-10.6)
--- NOTE | 2019-12-04 15:10 | ED ---
General Adult HPI - General Chief complaint: Recheck/Abnormal Lab/Rx Stated complaint: Altered mental status Time Seen by Provider: 12/04/19 14:21 Source: patient, EMS, RN notes reviewed Mode of arrival: EMS Limitations: no limitations - History of Present Illness Initial comments: This is a 79-year-old male with a history of being legally blind with hy pertension hyperlipidemia who was just discharged this morning after being evaluated in the hospital for dizziness and bradycardia who is back today by EMS. The caregiver called EMS because the patient was found be altered he also was found be stiffening up with marked diaphoresis and no palpable pulses. Patient glucose was 192. Initial blood pressure was unobtainable but after period time they were able to get a systolic blood pressure 128. Patient self does not recall any palpitations fevers chills or sweats no focal loss of function he is a relatively poor historian however. His mental status has improved. No history of seizure activity reported. No history of trauma. No other current modifying factors - Related Data Home Medications Medication Instructions Recorded Confirmed Simvastatin [Zocor] 10 mg PO HS 07/19/17 12/04/19 Previous Rx's Medication Instructions Recorded Brimonidine Tartrate [Alphagan P 1 drops RIGHT EYE BID #1 bottle 12/04/19 0.2% Ophth Soln] Dorzolamide-Timol 2.23%/0.68% 1 drop BOTH EYES BID #1 bottle 12/04/19 [Cosopt] Latanoprost [Xalatan 0.005%] 1 drop RIGHT EYE HS #2.5 ml 12/04/19 Meclizine [Antivert] 25 mg PO TID PRN #30 tab 12/04/19 Pantoprazole [Protonix] 40 mg PO DAILY #30 tablet. 12/04/19 Potassium Chloride [Klor-Con 20] 20 meq PO DAILY #30 tab 12/04/19 Tamsulosin [Flomax] 0.4 mg PO PC-BRKFST #30 cap.er.24h 12/04/19 amLODIPine [Norvasc] 5 mg PO BID #60 tab 12/04/19 Allergies Allergy/AdvReac Type Severity Reaction Status Date / Time No Known Allergies Allergy Verified 12/04/19 16:23 Review of Systems ROS Statement: Those systems with pertinent positive or pertinent negative responses have been documented in the HPI. ROS Other: All systems not noted in ROS Statement are negative. Limitations: ROS unobtainable due to patients medical condition Past Medical History Past Medical History: Hyperlipidemia, Hypertension Additional Past Medical History / Comment(s): Pt legally blind, History of Any Multi-Drug Resistant Organisms: None Reported Additional Past Surgical History / Comment(s): Colonoscopy, Past Psychological History: Depression Smoking Status: Never smoker Past Alcohol Use History: None Reported Past Drug Use History: None Reported General Exam - General Exam Comments Initial Comments: This is a well-developed well-nourished awake alert oriented 3 male Limitations: no limitations General appearance: alert Head exam: Present: atraumatic, normocephalic, normal inspection Eye exam: Present: PERRL, EOMI ENT exam: Present: mucous membranes dry Neck exam: Present: normal inspection. Absent: tenderness, meningismus, lymphadenopathy Respiratory exam: Present: normal lung sounds bilaterally. Absent: respiratory distress, wheezes, rales, rhonchi, stridor Cardiovascular Exam: Present: regular rate, normal rhythm, normal heart sounds. Absent: systolic murmur, diastolic murmur, rubs, gallop, clicks GI/Abdominal exam: Present: soft, normal bowel sounds. Absent: distended, tenderness, guarding, rebound, rigid Extremities exam: Present: normal inspection, full ROM, normal capillary refill. Absent: tenderness, pedal edema, joint swelling, calf tenderness Back exam: Present: normal inspection Neurological exam: Present: alert, oriented X3, other (Patient is legally blind) Psychiatric exam: Present: normal affect, normal mood Skin exam: Present: warm, dry, intact, normal color. Absent: rash Course Vital Signs 12/04/19 12/04/19 14:31 15:44 Temperature 97.7 F Pulse Rate 70 71 Respiratory 18 18 Rate Blood Pressure 113/92 142/85 O2 Sat by Pulse 97 97 Oximetry EKG Findings - EKG Results: EKG: interpreted by CAT, sinus rhythm (Sinus rhythm of 70. Interval 164 QRS 80 QT since QTC 46/438 minimal voltage criteria for LVH no acute ST-T wave changes) Medical Decision Making - Medical Decision Making I did discuss findings with patient and with Dr. Locke. She'll be admitted and evaluated for near syncope - Lab Data Result diagrams: 12/04/19 14:50 12/04/19 14:50 Lab Results 12/04/19 12/04/19 12/04/19 Range/Units 14:30 14:50 14:50 WBC 5.4 (3.8-10.6) k/uL RBC 4.58 (4.30-5.90) m/uL Hgb 14.5 (13.0-17.5) gm/dL Hct 44.9 (39.0-53.0) % MCV 98.2 (80.0-100.0) fL MCH 31.6 (25.0-35.0) pg MCHC 32.2 (31.0-37.0) g/dL RDW 13.2 (11.5-15.5) % Plt Count 137 L (150-450) k/uL Neutrophils % 62 % Lymphocytes % 27 % Monocytes % 4 % Eosinophils % 5 % Basophils % 1 % Neutrophils # 3.4 (1.3-7.7) k/uL Lymphocytes # 1.4 (1.0-4.8) k/uL Monocytes # 0.2 (0-1.0) k/uL Eosinophils # 0.3 (0-0.7) k/uL Basophils # 0.1 (0-0.2) k/uL PT (9.0-12.0) sec INR (<1.2) APTT (22.0-30.0) sec D-Dimer (<0.60) mg/L FEU Sodium 141 (137-145) mmol/L Potassium 4.3 (3.5-5.1) mmol/L Chloride 107 (98-107) mmol/L Carbon Dioxide 26 (22-30) mmol/L Anion Gap 8 mmol/L BUN 16 (9-20) mg/dL Creatinine 0.94 (0.66-1.25) mg/dL Est GFR (CKD-EPI)AfAm 89 (>60 ml/min/1.73 sqM) Est GFR (CKD-EPI)NonAf 77 (>60 ml/min/1.73 sqM) Glucose 154 H (74-99) mg/dL POC Glucose (mg/dL) 134 H (75-99) mg/dL POC Glu Shaper Set Up Operator ID Ely Valentine Calcium 9.2 (8.4-10.2) mg/dL Magnesium 2.1 (1.6-2.3) mg/dL Total Bilirubin 1.2 (0.2-1.3) mg/dL AST 31 (17-59) U/L ALT 12 (4-49) U/L Alkaline Phosphatase 111 (38-126) U/L Creatine Kinase 114 (55-170) U/L Troponin I (0.000-0.034) ng/mL Total Protein 7.2 (6.3-8.2) g/dL Albumin 4.5 (3.5-5.0) g/dL 12/04/19 12/04/19 Range/Units 14:50 14:50 WBC (3.8-10.6) k/uL RBC (4.30-5.90) m/uL Hgb (13.0-17.5) gm/dL Hct (39.0-53.0) % MCV (80.0-100.0) fL MCH (25.0-35.0) pg MCHC (31.0-37.0) g/dL RDW (11.5-15.5) % Plt Count (150-450) k/uL Neutrophils % % Lymphocytes % % Monocytes % % Eosinophils % % Basophils % % Neutrophils # (1.3-7.7) k/uL Lymphocytes # (1.0-4.8) k/uL Monocytes # (0-1.0) k/uL Eosinophils # (0-0.7) k/uL Basophils # (0-0.2) k/uL PT 10.0 (9.0-12.0) sec INR 1.0 (<1.2) APTT 19.3 L (22.0-30.0) sec D-Dimer 1.80 H (<0.60) mg/L FEU Sodium (137-145) mmol/L Potassium (3.5-5.1) mmol/L Chloride (98-107) mmol/L Carbon Dioxide (22-30) mmol/L Anion Gap mmol/L BUN (9-20) mg/dL Creatinine (0.66-1.25) mg/dL Est GFR (CKD-EPI)AfAm (>60 ml/min/1.73 sqM) Est GFR (CKD-EPI)NonAf (>60 ml/min/1.73 sqM) Glucose (74-99) mg/dL POC Glucose (mg/dL) (75-99) mg/dL POC Glu Shaper Set Up Operator ID Calcium (8.4-10.2) mg/dL Magnesium (1.6-2.3) mg/dL Total Bilirubin (0.2-1.3) mg/dL AST (17-59) U/L ALT (4-49) U/L Alkaline Phosphatase (38-126) U/L Creatine Kinase (55-170) U/L Troponin I <0.012 (0.000-0.034) ng/mL Total Protein (6.3-8.2) g/dL Albumin (3.5-5.0) g/dL - Radiology Data Radiology results: report reviewed ((Reviewed no acute findings no evidence of ovarian embolism on imaging), image reviewed Disposition Clinical Impression: Syncope, Hypotensive episode Disposition: ADMITTED IP TO THIS [facility] Condition: Fair Referrals: None,Stated [Primary Care Provider] - 1-2 days
[2019-12-04 15:15] LABS: Albumin 4.5 g/dL (3.5-5.0); Calcium 9.2 mg/dL (8.4-10.2); Magnesium 2.1 mg/dL (1.6-2.3); Potassium 4.3 mmol/L (3.5-5.1); Total Bilirubin 1.2 mg/dL (0.2-1.3); Total Protein 7.2 g/dL (6.3-8.2)
[2019-12-04 15:33] LABS: Partial Thromboplastin Time 19.3 sec (22.0-30.0)
[2019-12-04 15:34] LABS: D-Dimer 1.8 mg/L FEU (<0.60)
--- NOTE | 2019-12-04 15:43 | XR ---
EXAMINATION TYPE: XR chest 2V DATE OF EXAM: 12/04/2019 COMPARISON: 12/01/2019 HISTORY: Syncope, altered mental status and hypotension TECHNIQUE: Frontal and lateral views of the chest are obtained. FINDINGS: There is no focal air space opacity, pleural effusion, or pneumothorax seen. The cardiac silhouette size is within normal limits. The osseous structures are intact. Degenerative changes of the right shoulder is moderate and of the spine is mild. IMPRESSION: No acute cardiopulmonary process.
--- NOTE | 2019-12-04 16:18 | CT ---
EXAMINATION TYPE: CT angio chest DATE OF EXAM: 12/04/2019 COMPARISON: 01/27/2015 HISTORY: 79-year-old male Shortness of breath. TECHNIQUE: Contiguous axial scanning of the chest performed with IV Contrast, patient injected with 1 00 mL of Isovue 370. Coronal/sagittal MIP reconstructions performed. CT DLP: 495.3 mGycm Automated exposure control for dose reduction was used. FINDINGS: Heart is upper limits of normal in size without pericardial effusion. No flattening of the interventr icular septum or reflux of contrast into the hepatic veins. Aorta normal caliber with conventional branching anatomy. No thoracic lymphadenopathy by CT size criteria. Calcified left hilar lymph nodes compatible with vicente or granulomatous disease. No large central or definite lobar branch pulmonary embolus. Many of the segmental and more distal ar terial branches are nondiagnostic due to breathing motion. Mild diffuse bronchial wall thickening. Some patchy groundglass/mosaic attenuation is present. No con solidation or pleural effusion. Calcified granuloma posterior left base Visualized upper abdomen shows a large 7.1 cm cyst of the medial left kidney and suspected additional cyst centrally in the right kidney measuring 1.8 cm. Generalized colonic diverticulosis. 1.3 cm rig ht adrenal adenoma redemonstrated. Bones: Degenerative spondylosis mid to lower thoracic spine. IMPRESSION: 1. NO LARGE CENTRAL OR LOBAR BRANCH PULMONARY EMBOLUS. BREATHING MOTION ARTIFACT LIMITS ASSESSMENT OF MANY OF THE SEGMENTAL AND MORE DISTAL ARTERIAL BRANCHES AND EMBOLI IN THESE LOCATIONS CANNOT BE ADEQ UATELY EXCLUDED ON THE BASIS OF THIS EXAM. 2. MILD BRONCHIAL WALL THICKENING WITH SOME MOSAIC ATTENUATION WHICH CAN BE SEEN WITH SMALL AIRWAYS D ISEASE. CORRELATE FOR POSSIBLE ASTHMA.
[2019-12-04 17:21] LABS: Appearance,Urine Clear (Clear); Bilirubin,Urine Negative (Negative); Blood,Urine Negative (Negative); Color,Urine Yellow; Glucose,Urine (UA) Negative (Negative); Ketones,Urine Negative (Negative); Leukocyte Esterase,Urine Negative (Negative); Nitrite,Urine Negative (Negative); PH, Urine 6.5 (5.0-8.0); Protein,Urine Trace (Negative); Urobilinogen,Urine <2.0 mg/dL (<2.0)
[2019-12-04] MEDS ORDERED: NALOXONE 0.4 MG/ML 1 ML VIAL IV PRN (17:22)
[2019-12-04] MEDS ORDERED: ACETAMINOPHEN TAB 325 MG TAB PO PRN (17:22)
[2019-12-04] MEDS ORDERED: MECLIZINE 25 MG TAB PO PRN (17:24)
[2019-12-04 17:25] LABS: Specific Gravity,Urine >1.050 (1.001-1.035)
--- NOTE | 2019-12-04 18:10 | P.HPIM ---
History of Present Illness H&P Date: 12/04/19 Chief Complaint: confusion 79-year-old male legally blind, with hypertension, hyperlipidemia. Patient discomfort discharged today after being admitted for symptomatic dizzine ss and unsteady gait seem to be secondary to atenolol side effect. Patient seems to be blind and unable to keep track of his medications it was suspected that he was taking too much atenolol resulting in bradycardia. Once this medicine stopped his heartrate normalized and symptoms resolved. During that admission he was evaluated by cardiology and neurology. Patient was offered subacute rehab or long-term assisted facility living however he declined and chose to go home with caregiver and home health care. However, patient was discharged today spent an hour home or less and that was brought in back. Caregiver accompanying the patient today she is saying that's very hard to take care of him as he is blind and lives alone. She left him at home to go get some prescriptions for him when she came back she found him confused at home for which she called 911 and brought him back to the hospital. Currently patient is wide awake sharp he recognized me when I walked in and introduced myself, he is alert oriented to place and person. Patient is legally blind and at times he confuses day and night. Patient denies any dizziness or lightheadedness denies any headache denies any chest pain or trouble breathing denies nausea vomiting abdominal pain fevers or chills. In the ED patient was found to have slightly elevated d-dimer for which CT angios the chest was performed and that was negative for any acute PE or other pathologies. Patient vital signs are stable, labs are unchanged from earlier this morning and within normal limits. I offered the patient and his caregiver to be discharged home from the ER however caregiver indicated that she is not able and is not willing to take care of the patient anymore and wants him to be placed at the prison or long- term assisted facility. This is not patient's preferred choice however he is willing to consider it if he stays in [place] Patient will be admitted for monitoring of his vital signs and evaluation by PT. annual giving manager will evaluate the case in the morning for placement options While hospitalized patient had a couple episodes where he gets agitated and becomes mean to the staff and starts threatening get accusing staff members of stealing from him. Patient probably has some degree of dementia Review of Systems Pertinent positives as noted in HPI. All other systems were reviewed and are negative Past Medical History Past Medical History: Hyperlipidemia, Hypertension Additional Past Medical History / Comment(s): Pt legally blind, History of Any Multi-Drug Resistant Organisms: None Reported Additional Past Surgical History / Comment(s): Colonoscopy, Past Psychological History: Depression Smoking Status: Never smoker Past Alcohol Use History: None Reported Past Drug Use History: None Reported Medications and Allergies Home Medications Medication Instructions Recorded Confirmed Type Simvastatin [Zocor] 10 mg PO HS 07/19/17 12/04/19 History Brimonidine Tartrate [Alphagan P 1 drops RIGHT EYE BID #1 bottle 12/04/19 12/04/19 Rx 0.2% Ophth Soln] Dorzolamide-Timol 2.23%/0.68% 1 drop BOTH EYES BID #1 bottle 12/04/19 12/04/19 Rx [Cosopt] Latanoprost [Xalatan 0.005%] 1 drop RIGHT EYE HS #2.5 ml 12/04/19 12/04/19 Rx Meclizine [Antivert] 25 mg PO TID PRN #30 tab 12/04/19 12/04/19 Rx Pantoprazole [Protonix] 40 mg PO DAILY #30 tablet.dr 12/04/19 12/04/19 Rx Potassium Chloride [Klor-Con 20] 20 meq PO DAILY #30 tab 12/04/19 12/04/19 Rx Tamsulosin [Flomax] 0.4 mg PO PC-BRKFST #30 cap.er.24h 12/04/19 12/04/19 Rx amLODIPine [Norvasc] 5 mg PO BID #60 tab 12/04/19 12/04/19 Rx Allergies Allergy/AdvReac Type Severity Reaction Status Date / Time No Known Allergies Allergy Verified 12/04/19 16:23 Physical Exam Vitals: Vital Signs Temp Pulse Resp BP Pulse Ox 12/04/19 17:43 82 18 132/85 98 12/04/19 15:44 71 18 142/85 97 12/04/19 14:31 97.7 F 70 18 113/92 97 Intake and Output 12/04/19 12/04/19 12/04/19 06:59 14:59 22:59 Other: Weight 72.575 kg Constitutional: No acute distress, conversant, pleasant, patient recognized me when I introduced myself Eyes: Anicteric sclerae, moist conjunctiva, pupils are not reactive to light round and equal this is at his baseline ENMT: NC/AT Oropharynx clear, no erythema, exudates Neck: Supple, FROM, no masses, or JVD No carotid bruits No thyromegaly Lungs: Clear to auscultation Clear to percussion Normal respiratory effort, no accessory muscle use Cardiovascular: Heart regular in rate and rhythm, No murmurs, gallops, or rubs No peripheral edema Abdominal: Soft Nontender, no guarding, rebound or rigidity Abdomen moving with respiration Normoactive bowel sounds No hepatomegaly, No splenomegaly No palpable mass No abdominal wall hernia noted Skin: Normal temperature, tone, texture, turgor No induration No subcutaneous nodules No rash, lesions No ulcers Extremities: No digital cyanosis No clubbing Pedal pulses intact and symmetrical Radial pulses intact and symmetrical No calf tenderness Psychiatric: Alert and oriented to person, place Appropriate affect fair judgement Neuro Muscles Strength 5/5 in all 4 extremities Sensation to light touch grossly present throughout Cranial nerves VII-XII grossly intact , optic nerve and ocular muscles nerves could not be evaluated properly due to blindness No focal sensory deficits Lymphatics: no palpable cervical or supraclavicular , or inguinal lymph nodes Results CBC & Chem 7: 12/04/19 14:50 12/04/19 14:50 Labs: Abnormal Lab Results - Last 24 Hours (Table) 12/04/19 12/04/19 12/04/19 Range/Units 14:30 14:50 14:50 Plt Count 137 L (150-450) k/uL APTT (22.0-30.0) sec D-Dimer (<0.60) mg/L FEU Glucose 154 H (74-99) mg/dL POC Glucose (mg/dL) 134 H (75-99) mg/dL Ur Specific [place] (1.001-1.035) Urine Protein (Negative) 12/04/19 12/04/19 Range/Units 14:50 17:05 Plt Count (150-450) k/uL APTT 19.3 L (22.0-30.0) sec D-Dimer 1.80 H (<0.60) mg/L FEU Glucose (74-99) mg/dL POC Glucose (mg/dL) (75-99) mg/dL Ur Specific [place] >1.050 H (1.001-1.035) Urine Protein Trace H (Negative) Assessment and Plan Assessment: 79-year-old male with hypertension currently controlled type, hyperlipidemia, BPH, legally blind, dementia. She lives alone, patient is fall risk. He has a caregiver injuring his most recent hospitalization he refused placement at long- term assisted facility and insisted on going home with caregiver and home health care. This time his caregiver brings him back saying he is not safe to live alone and she cannot take care of him anymore. Requesting consideration for placement at long-term assisted facility. This time she left him a home for around less than an hour when she came back she found him confused and sweaty accusing her of stealing not recognizing her. Patient did have such episodes during his most recent hospital stay and he goes back to his normal self with reassurance. Patient will be considered this time for long-term assisted facility living. Plan: episodes of confusion , most likely component of dementia most recent CT scan from recent admission was negative for any acute process neuro evaluated patient during his most recent admission for dizziness. and recommended cardiology evaluation as his symptoms were related to braycardia this is age related, and related to dementia vital signs stable neuro assessment hypertension , controlled continue home meds BPH continue flomax DVT PPX heparin sc tid legally blind , fall risk PT eval patient blind and has degree of dementia , lives alone , concerns regarding safety refused [facility] during his most recent admission , and insisted on going home with small animal caretaker and home health care, despite my recommendations otherwise this time he agrees to being evaluated for placement at [facility] Preformed a thorough record review from recent hospitalization for symptomatic bradycardia 2/2 atenolol which was stopped, symptoms resolved. CODE STATUS:full code Discussed with: Patient, ER, RN Anticipated length of stay < than [address] A total of 60 minutes was spent on the care of this complex patient more than 50% of the time was spent in counseling and care coordination.
[2019-12-04] MEDS: SODIUM CHLORIDE 0.9% 1,000 ML IV SCH (19:41)
[2019-12-04] MEDS: HEPARIN SODIUM,PORCINE 5,000 UNIT/ML 1 ML VIAL SQ SCH (21:34)
[2019-12-04] MEDS: amLODIPine 5 MG TAB PO SCH (21:34)
[2019-12-04] MEDS: ATORVASTATIN 10 MG TAB PO SCH (21:34)
[2019-12-04] MEDS: BRIMONIDINE TARTRATE 0.2% DROPS 5 ML BTL RIGHT EYE SCH ×2 (22:44→22:45)
[2019-12-04] MEDS: DORZOLAMIDE-TIMOLOL 2.23%/0.68 10ML BTL BOTH EYES SCH (22:46)
[2019-12-04] MEDS: LATANOPROST 0.005% OPHTH DROPS 2.5 ML BTL RIGHT EYE SCH (22:46)
[2019-12-05 08:04] LABS: African American GFR (CKD) >90 (>60 ml/min/1.73 sqM); Anion Gap 6 mmol/L; Blood Urea Nitrogen 13 mg/dL (9-20); Calcium 8.6 mg/dL (8.4-10.2); Carbon Dioxide 25 mmol/L (22-30); Chloride 109 mmol/L (98-107); Glucose 106 mg/dL (74-99); Non-African American GFR(CKD) 90 (>60 ml/min/1.73 sqM); Potassium 3.4 mmol/L (3.5-5.1); Sodium 140 mmol/L (137-145)
[2019-12-05] MEDS: PANTOPRAZOLE 40 MG TABLET PO SCH (10:17)
[2019-12-05] MEDS: amLODIPine 5 MG TAB PO SCH ×2 (10:17→22:44)
[2019-12-05] MEDS: BRIMONIDINE TARTRATE 0.2% DROPS 5 ML BTL RIGHT EYE SCH ×2 (10:18→22:44)
[2019-12-05] MEDS: POTASSIUM CHLORIDE ER 20 MEQ TAB.ER PO SCH (10:18)
[2019-12-05] MEDS: TAMSULOSIN 0.4 MG CAP.ER.24H PO SCH (10:18)
[2019-12-05] MEDS: DORZOLAMIDE-TIMOLOL 2.23%/0.68 10ML BTL BOTH EYES SCH ×2 (10:18→22:45)
[2019-12-05] MEDS: HEPARIN SODIUM,PORCINE 5,000 UNIT/ML 1 ML VIAL SQ SCH ×3 (10:18→22:45)
[2019-12-05] MEDS: SODIUM CHLORIDE 0.9% 1,000 ML IV SCH ×2 (10:19→18:48)
--- NOTE | 2019-12-05 11:22 | P.PN ---
Subjective Progress Note Date: 12/05/19 Principal diagnosis: follow up for episodes of confusion patient seen and examined . doing well , no new complaints. denies any chest pain , or trouble breathing denies any nausea or vomiting patient is very pleasant at this time no episodes of agitation or confusion since admission Objective - Vital Signs Vital signs: Vital Signs Temp 98 F 12/05/19 10:15 Pulse 89 12/05/19 10:15 Resp 18 12/05/19 10:15 BP 161/100 12/05/19 10:15 Pulse Ox 97 12/05/19 10:15 Intake & Output 12/04/19 12/05/19 12/05/19 18:59 06:59 18:59 Output Total 200 Balance -200 Weight 72.575 kg 72.575 kg Output: Urine 200 Other: Voiding Method Urinal Urinal - Exam alert, oriented to place and person pleasant , stable vital signs lungs clear to auscultation , no wheezing cardiac normal s1 , s2 no murmurs , no leg edema bilaterally abd soft lax, abd wall hernia , bowel sounds positive, no tenderness to palpation moving all extremities strength 5/5 throughout, no focal sensory deficits. - Labs CBC & Chem 7: 12/04/19 14:50 12/05/19 06:28 Labs: Abnormal Lab Results - Last 24 Hours (Table) 12/04/19 12/04/19 12/04/19 Range/Units 14:30 14:50 14:50 Plt Count 137 L (150-450) k/uL APTT (22.0-30.0) sec D-Dimer (<0.60) mg/L FEU Potassium (3.5-5.1) mmol/L Chloride (98-107) mmol/L Glucose 154 H (74-99) mg/dL POC Glucose (mg/dL) 134 H (75-99) mg/dL Ur Specific [place] (1.001-1.035) Urine Protein (Negative) 12/04/19 12/04/19 12/05/19 Range/Units 14:50 17:05 06:28 Plt Count (150-450) k/uL APTT 19.3 L (22.0-30.0) sec D-Dimer 1.80 H (<0.60) mg/L FEU Potassium 3.4 L (3.5-5.1) mmol/L Chloride 109 H (98-107) mmol/L Glucose 106 H (74-99) mg/dL POC Glucose (mg/dL) (75-99) mg/dL Ur Specific [place] >1.050 H (1.001-1.035) Urine Protein Trace H (Negative) Assessment and Plan Assessment: 79-year-old male with hypertension currently controlled type, hyperlipidemia, BPH, legally blind, dementia. She lives alone, patient is fall risk. He has a caregiver injuring his most recent hospitalization he refused placement at long- term assisted facility and insisted on going home with caregiver and home health care. This time his caregiver brings him back saying he is not safe to live alone and she cannot take care of him anymore. Requesting consideration for placement at long-term assisted facility. This time she left him a home for around less than an hour when she came back she found him confused and sweaty accusing her of stealing not recognizing her. Patient did have such episodes during his most recent hospital stay and he goes back to his normal self with reassurance. Patient will be considered this time for long-term assisted facility living. 12/05 working with social group worker on placement at care home assisted living facility monitor for episodes of confusion cardiac monitoring await neuro evaluation Plan: episodes of confusion , most likely component of dementia most recent CT scan from recent admission was negative for any acute process neuro evaluated patient during his most recent admission for dizziness. and recommended cardiology evaluation as his symptoms were related to braycardia this is age related, and related to dementia vital signs stable neuro assessment await neuro input hypertension , over all well controlled continue home meds BPH continue flomax DVT PPX heparin sc tid legally blind , fall risk PT eval patient blind and has degree of dementia , lives alone , concerns regarding safety [facility] during his most recent admission , and insisted on going home with clinical care manager and home health care, despite my recommendations otherwise this time he agrees to being evaluated for placement at [facility] recent hospitalization for bradycardia , secondary to atenolol , patient was probably overdosing unintentionally due to being forgetful and blind plans on discharging once we have accepting facility
--- NOTE | 2019-12-05 19:55 | P.CNNES ---
History of Present Illness Consult date: 12/05/19 Reason for Consult: episodes of confusion and agitation Chief complaint: Altered, stiffening up with marked diaphoresis and no palpable pulses History of Present Illness: HISTORY OF PRESENT ILLNESS: Thank you for allowing me to evaluate Mr. Neil Mora. Mr. Mora is a 79 year-old man with PMhx of HTN, HLD, legally blind, depression, who presented to [facility] after being found altered. Patient was discharged from [facility] morning of 12/04/2019, admitted for dizziness and bradycardia. When EMS arrived, patient was altered, stiffening up with marked diahporesis and no palpable pulses. Patient was evaluated by Dr. Muñoz on 12/01/2019 for altered mental status. At the time, patient reported feeling dizzy which made him get down to the floor. Patient was discharged home per entertainment & media correspondent's request. Per primary team, entertainment & media correspondent is now more understanding of the patient's need for closer monitoring. Primary team also states that patient's episodes of bradycardia was observed during his last admission, where patient reported dizziness when he tried to open his eyes and became diaphoretic. At the time, patient's home med, atenolol, was discontinued. Patient denies any pain, headache, nausea, vomiting, dizziness, weakness, numbness or tingling. PAST MEDICAL HISTORY: HTN, HLD, legally blind, depression PAST SURGICAL HISTORY: None reported HOME MEDICATIONS: simvastatin ALLERGIES: NKDA SOCIAL HISTORY: Never smoker REVIEW OF SYSTEMS: The 14 systems are reviewed and no additional points are identified compared to the review of systems documented history and physical PHYSICAL EXAMINATION: VITAL SIGNS: T 98.0 HR 104 RR 18 BP 141/94 O2 sat 98% on RA GEN.: NAD, pleasant and cooperative HEENT: NCAT, L eye deviated to the L at baseline, almost completely blind but able to tell shape and count fingers somewhat with his R eye NECK: Supple SKIN AND EXTREMITIES: Warm to touch, no edema NEURO: MENTAL STATUS: Patient alert and oriented to self, place, time. Able to name the current president. Speech fluent, able to name and repeat, following all commands readily. CRANIAL NERVES II THROUGH XII: II: L eye clouded and deviated to the L. R pupil reactive to light. Able to count fingers III, IV, : No ptosis. R eye extraocular movements full. L eye with some movement but very limitedV: Facial sensation intact from V1-3. VII. No clear facial asymmetry. VIII: Hearing intact to finger rub bilaterally. IX, X: Symmetric palate elevation. XI: Shoulder shrug intact. XII: Tongue midline without fasciculation or atrophy MOTOR: Normal bulk/tone. No pronator drift or tremor. Strength is 5/5 throughout all 4 extremities SENSORY: Intact to light touch in all 4 extremities. REFLEXES: 2+ throughout. Toes are downgoing. COORDINATION: Finger to nose intact (takes time due to vision but still able to). No dysmetria. GAIT: deferred DIAGNOSTIC TESTING: LABORATORY: WBC 5.4 Hgb 14.5 Platelet 137 NA 140 K 3.4 Cl 109 CO2 25 BUN 13 Cr 0.71 glucose 106 AST 31 ALT 12 AlkPhos 111 Troponin <0.012 urinalysis negative IMAGING: CT Head 12/01/2019: No acute intracranial lesion. Degenerative change, some atrophy ASSESSMENT: 79 year-old man with PMhx of HTN, HLD, legally blind, depression, who presented to [facility] after being found altered. At this time, patient with no neurological deficit. L eye vision deficit baseline. Patient's episodes of confusion along with stiffening and diaphoresis could be from a cardiac etiology, but cannot rule out seizure episodes. Patient himself does not remember having pain in his tongue or waking up with wet pants. RECOMMENDATIONS: 1. Routine EEG obtained today 2. Patient is unsafe to be living alone due to vision loss and memory impa irment. Patient is at risk for falling and injuring himself. 3. Neurology will sign off at this time unless review of final EEG read shows active seizures/epileptiform discharges. Please contact with additional questions or concerns. Past Medical History Past Medical History: Hyperlipidemia, Hypertension Additional Past Medical History / Comment(s): Pt legally blind, History of Any Multi-Drug Resistant Organisms: None Reported Additional Past Surgical History / Comment(s): Colonoscopy, Past Psychological History: Depression Smoking Status: Never smoker Past Alcohol Use History: None Reported Past Drug Use History: None Reported Medications and Allergies Home Medications Medication Instructions Recorded Confirmed Type Simvastatin [Zocor] 10 mg PO HS 07/19/17 12/04/19 History Brimonidine Tartrate [Alphagan P 1 drops RIGHT EYE BID #1 bottle 01/29/20 01/29/20 Rx 0.2% Ophth Soln] Dorzolamide-Timol 2.23%/0.68% 1 drop BOTH EYES BID #1 bottle 12/04/19 12/04/19 Rx [Cosopt] Latanoprost [Xalatan 0.005%] 1 drop RIGHT EYE HS #2.5 ml 12/04/19 12/04/19 Rx Meclizine [Antivert] 25 mg PO TID PRN #30 tab 12/04/19 12/04/19 Rx Pantoprazole [Protonix] 40 mg PO DAILY #30 tablet.dr 12/04/19 12/04/19 Rx Potassium Chloride [Klor-Con 20] 20 meq PO DAILY #30 tab 12/04/19 12/04/19 Rx Tamsulosin [Flomax] 0.4 mg PO PC-BRKFST #30 cap.er.24h 12/04/19 12/04/19 Rx amLODIPine [Norvasc] 5 mg PO BID #60 tab 12/04/19 12/04/19 Rx Allergies Allergy/AdvReac Type Severity Reaction Status Date / Time No Known Allergies Allergy Verified 12/04/19 16:23 Physical Examination - Vital Signs Vital Signs: Vital Signs Temp Pulse Pulse Resp BP BP Pulse Ox 12/05/19 04:00 98.0 F 104 H 18 141/94 98 12/05/19 00:26 98.8 F 98 18 134/99 99 12/04/19 20:41 98 F 104 H 18 151/92 100 12/04/19 17:43 82 18 132/85 98 12/04/19 15:44 71 18 142/85 97 12/04/19 14:31 97.7 F 70 18 113/92 97 Intake and Output 12/04/19 12/05/19 12/05/19 22:59 06:59 14:59 Output Total 200 Balance -200 Output: Urine 200 Other: Voiding Method Urinal Weight 72.575 kg Results - Laboratory Findings CBC and BMP: 12/04/19 14:50 12/05/19 06:28 Abnormal Lab Findings: Abnormal Labs 12/04/19 12/04/19 12/04/19 14:30 14:50 14:50 Plt Count 137 L APTT D-Dimer Potassium Chloride Glucose 154 H POC Glucose (mg/dL) 134 H Ur Specific [place] Urine Protein 12/04/19 12/04/19 12/05/19 14:50 17:05 06:28 Plt Count APTT 19.3 L D-Dimer 1.80 H Potassium 3.4 L Chloride 109 H Glucose 106 H POC Glucose (mg/dL) Ur Specific [place] >1.050 H Urine Protein Trace H
[2019-12-05] MEDS: ATORVASTATIN 10 MG TAB PO SCH (22:44)
[2019-12-05] MEDS: LATANOPROST 0.005% OPHTH DROPS 2.5 ML BTL RIGHT EYE SCH (22:45)
--- NOTE | 2019-12-05 23:41 | EEG ---
ELECTROENCEPHALOGRAM REPORT DATE OF PROCEDURE: 12/05/2019. ELECTROENCEPHALOGRAM (EEG) REPORT: TECHNIQUE: A routine 18-channel EEG was performed with video using the 10/20 electrode placement system. HISTORY: Syncope/hypotensive episode. Patient readmitted same day after being discharged. Patient returned with dizziness and unsteady gait. CURRENT MEDICATIONS: Flomax, potassium chloride, Protonix, Antivert, heparin, Cosopt. STUDY DURATION: 21 minutes. FINDINGS: BACKGROUND: The background activity consisted of 8-9 Hz rhythmic waveforms symmetrically distributed over both posterior quadrants. ACTIVATION: Hyperventilation: Not performed. Photic stimulation: Symmetric driving seen. Sleep: Drowsy. Please note that one channel of this EEG was dedicated to EKG, it demonstrated a sinus rhythm. ABNORMALITIES: None. IMPRESSION: Normal EEG. No epileptiform activity was present. No seizures were recorded. MMODL / IJN: [id number] / MTDD
[2019-12-06 07:44] LABS: African American GFR (CKD) >90 (>60 ml/min/1.73 sqM); Anion Gap 4 mmol/L; Blood Urea Nitrogen 13 mg/dL (9-20); Calcium 8.7 mg/dL (8.4-10.2); Carbon Dioxide 26 mmol/L (22-30); Chloride 110 mmol/L (98-107); Glucose 105 mg/dL (74-99); Non-African American GFR(CKD) >90 (>60 ml/min/1.73 sqM); Potassium 3.5 mmol/L (3.5-5.1); Sodium 140 mmol/L (137-145)
[2019-12-06] MEDS: TAMSULOSIN 0.4 MG CAP.ER.24H PO SCH (09:28)
[2019-12-06] MEDS: POTASSIUM CHLORIDE ER 20 MEQ TAB.ER PO SCH (09:28)
[2019-12-06] MEDS: amLODIPine 5 MG TAB PO SCH ×2 (09:29→21:23)
[2019-12-06] MEDS: DORZOLAMIDE-TIMOLOL 2.23%/0.68 10ML BTL BOTH EYES SCH ×2 (09:29→21:23)
[2019-12-06] MEDS: PANTOPRAZOLE 40 MG TABLET PO SCH (09:29)
[2019-12-06] MEDS: BRIMONIDINE TARTRATE 0.2% DROPS 5 ML BTL RIGHT EYE SCH ×2 (09:29→21:23)
[2019-12-06] MEDS: HEPARIN SODIUM,PORCINE 5,000 UNIT/ML 1 ML VIAL SQ SCH ×3 (09:29→21:22)
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
--- NOTE | 2019-12-06 15:46 | CDI ---
Documentation Clarification Form Date: 12/06/2019 03:23:41 PM From: Kimmy Farris RN, CCDS Admit Date: 12/04/2019 05:25:00 PM Patient Name: Neil Mora Visit Number: [id number] Discharge Date: ATTENTION: The Clinical Documentation Specialists (CDI) and [facility] Coding Staff appreciate your assistance in clarifying documentation. Please respond to the clarification below the line at the bottom and electronically sign. The CDI & [facility] Coding staff will review the response and follow-up if needed. Please note: Queries are made part of the Legal Health Record. If you have any questions, please contact the author of this message via ITS. Dr. Michael Isabel/Dr. Rosalva Maria Dementia was documented in the H&P on 12/04/19 and continues in your subsequent documentation and further specificity is indicated. Patient history/risk factors: Hypertension, Legally blind, Clinical indicators: In the H/P patient returned to ER, per Caregiver saying that it's very hard to take care of him, she found him confused at home. Patient is legally blind and at times he confuses day and night. While hospitalized patient had a couple episodes where he gets agitated and becomes mean to the staff. Vital signs: 12/04/19 @14:31: 113/92 70 18 97.7 CXR: No acute cardiopulmonary process 12/05/19 EEG/EMG: No epileptiform activity was present. No seizures were recorded. Treatment: Neurological assessment Q4 hour Neurological Consults: (12/04/19) Patient's episodes of confusion along with stiffening and diaphoresis could be from a cardiac etiology, but cannot rule out seizure In your professional opinion, can you please specify the type of Dementia if known? Alzheimers disease (specify if early (presenile) or late (senile) onset) Parkinsons disease Senile (specify if with or without confusional state) Vascular (specify if arteriosclerosis or sequel of cerebrovascular disease) Lewy body Other condition or cause of dementia, please specify Unable to determine Please indicate any behavioral disturbances associated with the condition (such as aggression, combative, violent, or wandering) (Last Revision: August 2017) unable to determine MTDD
[2019-12-06] MEDS: SODIUM CHLORIDE 0.9% 1,000 ML IV SCH ×2 (19:16→21:27)
[2019-12-06] MEDS: ATORVASTATIN 10 MG TAB PO SCH (21:23)
[2019-12-06] MEDS: LATANOPROST 0.005% OPHTH DROPS 2.5 ML BTL RIGHT EYE SCH (21:23)
[2019-12-07 02:38] VITALS: RESP 16
[2019-12-07 07:01] LABS: Basophils % (A) 1 %; Eosinophils # (A) 0.2 k/uL (0-0.7); Eosinophils % (A) 6 %; HCT 39.9 % (39.0-53.0); HGB 12.9 gm/dL (13.0-17.5); Lymphocytes # (A) 1.7 k/uL (1.0-4.8); Lymphocytes % (A) 42 %; MCH 31.4 pg (25.0-35.0); MCHC 32.4 g/dL (31.0-37.0); Mean Platelet Volume 9.1; Monocytes # (A) 0.2 k/uL (0-1.0); Monocytes % (A) 6 %; Neutrophils # (A) 1.8 k/uL (1.3-7.7); Neutrophils % (A) 44 %; Platelet Count 109 k/uL (150-450); RBC 4.11 m/uL (4.30-5.90); RDW 12.9 % (11.5-15.5); WBC 4.1 k/uL (3.8-10.6)
[2019-12-07 07:55] VITALS: BP 136/89; PULSE 78; TEMP 98.2
[2019-12-07] MEDS: amLODIPine 5 MG TAB PO SCH (08:51)
[2019-12-07] MEDS: POTASSIUM CHLORIDE ER 20 MEQ TAB.ER PO SCH (08:51)
[2019-12-07] MEDS: PANTOPRAZOLE 40 MG TABLET PO SCH (08:51)
[2019-12-07] MEDS: BRIMONIDINE TARTRATE 0.2% DROPS 5 ML BTL RIGHT EYE SCH (08:52)
[2019-12-07] MEDS: TAMSULOSIN 0.4 MG CAP.ER.24H PO SCH (08:52)
[2019-12-07] MEDS: HEPARIN SODIUM,PORCINE 5,000 UNIT/ML 1 ML VIAL SQ SCH (08:52)
[2019-12-07] MEDS: DORZOLAMIDE-TIMOLOL 2.23%/0.68 10ML BTL BOTH EYES SCH (08:52)
--- NOTE | 2019-12-07 12:17 | P.DS ---
Providers Date of admission: 12/04/19 17:25 Expected date of discharge: 12/07/19 Attending physician: Kenan Locke MD Consults: 12/04/19 18:10 Consult Physician Routine Consulting Provider: Ruchi Gao Consult Reason/Comments: episodes of confusion and agitation Do you want consulting provider notified?: Yes Primary care physician: Stated None Hospital Course: Discharge Diagnosis: Symptomiatic Bradycardia Intermittent delirium in the setting of dementia legally blind Thrombocytopenia, chronic to 2018 HTN BPH Hospital Course: Patient is a 79-year-old black male who is legally blind with hypertension and dyslipidemia who presented to the emergency department with complaints of dizziness and unsteady gait. She had recently been admitted from [facility] 06/05/2029 secondary to altered mentation and dizziness. She had initially been offered subacute rehab but wanted to return home with his caregiver. Upon return home they were unable to care for him and he was brought back to the hospital. Patient was found have an elevated d-dimer in the emergency department and underwent a CTA of the chest which was negative for pulmonary embolism or other pathology. He continued to have intermittent episodes of confusion throughout his hospital stay. He was seen by neurology and underwent an EEG which was found to be normal. Neurology felt that he is unsafe to be living alone due to his loss of vision and memory impairment. He was determined stable for discharge Patient seen and examined at bedside. No complaints, no shortness of breath, no nausea, no diarrhea. Vital signs reviewed and stable. General: non toxic, no distress, appears at stated age Derm: warm, dry Head: atraumatic, normocephalic, symmetric Eyes: EOMI, no lid lag, anicteric sclera Mouth: no lip lesion, mucus membranes moist Cardiovascular: S1S2 reg, no murmur, positive posterior tibial pulse bilateral, Lungs: decreased bs bilateral, no rhonchi, no rales , no accessory muscle use Abdominal: soft, nontender to palpation, no guarding, no appreciable organomegaly Ext: no gross muscle atrophy, no edema, no contractures Neuro: CN II-XI grossly intact, no focal neuro deficits Psych: Alert, oriented, appropriate affect A total of 25 minutes of time were spent preparing this complex discharge summary . Patient Condition at Discharge: Fair Plan - Discharge Summary Discharge Rx Participant: No New Discharge Prescriptions: No Action Simvastatin [Zocor] 10 mg PO HS Meclizine [Antivert] 25 mg PO TID PRN #30 tab PRN Reason: dizziness Tamsulosin [Flomax] 0.4 mg PO PC-BRKFST #30 cap.er.24h amLODIPine [Norvasc] 5 mg PO BID #60 tab Pantoprazole [Protonix] 40 mg PO DAILY #30 tablet. Brimonidine Tartrate [Alphagan P 0.2% Ophth Soln] 1 drops RIGHT EYE BID #1 bottle Dorzolamide-Timol 2.23%/0.68% [Cosopt] 1 drop BOTH EYES BID #1 bottle Potassium Chloride [Klor-Con 20] 20 meq PO DAILY #30 tab Latanoprost [Xalatan 0.005%] 1 drop RIGHT EYE HS #2.5 ml Discharge Medication List Simvastatin [Zocor] 10 mg PO HS 07/19/17 [History] Brimonidine Tartrate [Alphagan P 0.2% Ophth Soln] 1 drops RIGHT EYE BID #1 bottle 12/04/19 [Rx] Dorzolamide-Timol 2.23%/0.68% [Cosopt] 1 drop BOTH EYES BID #1 bottle 12/04/19 [Rx] Latanoprost [Xalatan 0.005%] 1 drop RIGHT EYE HS #2.5 ml 12/04/19 [Rx] Meclizine [Antivert] 25 mg PO TID PRN #30 tab 12/04/19 [Rx] Pantoprazole [Protonix] 40 mg PO DAILY #30 tablet. 12/04/19 [Rx] Potassium Chloride [Klor-Con 20] 20 meq PO DAILY #30 tab 12/04/19 [Rx] Tamsulosin [Flomax] 0.4 mg PO PC-BRKFST #30 cap.er.24h 12/04/19 [Rx] amLODIPine [Norvasc] 5 mg PO BID #60 tab 12/04/19 [Rx] Follow up Appointment(s)/Referral(s): None,Stated [Primary Care Provider] - 1-2 days
== END 2019-12-07 14:01 | DRG 884 ==
LOC: EC 14:21 → OBSVTOIN 17:25 → INTOOBSV 17:25 → 3SCARD 17:25 → 6NMEDSUR 12-05 11:26 → 4SSUR 12-05 12:19
PROVIDERS: ADMIT Hospitalist; ATTEND Hospitalist
DX: F03.90 Unspecified dementia, unspecified severity, without behavioral disturbance, psychotic disturbance, mood disturbance, and anxiety (principal); F05 Delirium due to known physiological condition; D69.6 Thrombocytopenia, unspecified; E78.5 Hyperlipidemia, unspecified; F32.9 Major depressive disorder, single episode, unspecified; H54.8 Legal blindness, as defined in USA; I10 Essential (primary) hypertension; N40.0 Benign prostatic hyperplasia without lower urinary tract symptoms; Z79.899 Other long term (current) drug therapy; Z91.81 History of falling; Z60.2 Problems related to living alone; R00.1 Bradycardia, unspecified; R26.81 Unsteadiness on feet; R45.1 Restlessness and agitation; R79.1 Abnormal coagulation profile
CPT/HCPCS: 36415; 71046; 71275; 80048; 80053; 81003; 82550; 83735; 84484; 85025; 85379; 85610; 85730; 93005; 95816; 96360; 96361; 96372; 99285

== ENCOUNTER 2019-12-08 16:57 | Emergency (ER) | payer MEDICARE, OTHER ==
[2019-12-08 17:11] VITALS: RESP 18
--- NOTE | 2019-12-08 17:41 | ED ---
General Adult HPI - General Chief complaint: Psychiatric Symptoms Stated complaint: mental health/aggression Time Seen by Provider: 12/08/19 17:16 Source: patient, EMS, RN notes reviewed, old records reviewed Mode of arrival: EMS Limitations: no limitations - History of Present Illness Initial comments: 79-year-old male presenting for evaluation of agitation and requested psych evaluation. Patient was recently placed in a [facility], he's been there only a couple days. He was sent by [facility] staff for agitation and aggressive behavior. He is alert and oriented 3 at the time my evaluation. He is calm and cooperative. He does admit that there was a verbal altercation, denies any physical aggression. He has history of blindness and is unable to live at home alone. This is why he was sent to the [facility]. He denies any drugs of abuse. He denies suicidal or homicidal ideation. He denies depression. - Related Data Home Medications Medication Instructions Recorded Confirmed Simvastatin [Zocor] 10 mg PO HS 07/19/17 12/04/19 Previous Rx's Medication Instructions Recorded Brimonidine Tartrate [Alphagan P 1 drops RIGHT EYE BID #1 bottle 12/04/19 0.2% Ophth Soln] Dorzolamide-Timol 2.23%/0.68% 1 drop BOTH EYES BID #1 bottle 12/04/19 [Cosopt] Latanoprost [Xalatan 0.005%] 1 drop RIGHT EYE HS #2.5 ml 12/04/19 Meclizine [Antivert] 25 mg PO TID PRN #30 tab 12/04/19 Pantoprazole [Protonix] 40 mg PO DAILY #30 tablet. 12/04/19 Potassium Chloride [Klor-Con 20] 20 meq PO DAILY #30 tab 12/04/19 Tamsulosin [Flomax] 0.4 mg PO PC-BRKFST #30 cap.er.24h 12/04/19 amLODIPine [Norvasc] 5 mg PO BID #60 tab 12/04/19 LORazepam [Ativan] 0.5 mg PO BID PRN 3 Days #6 tab 12/08/19 Allergies Allergy/AdvReac Type Severity Reaction Status Date / Time No Known Allergies Allergy Verified 12/08/19 17:02 Review of Systems ROS Statement: Those systems with pertinent positive or pertinent negative responses have been documented in the HPI. ROS Other: All systems not noted in ROS Statement are negative. Past Medical History Past Medical History: Hyperlipidemia, Hypertension Additional Past Medical History / Comment(s): Pt legally blind, History of Any Multi-Drug Resistant Organisms: None Reported Additional Past Surgical History / Comment(s): Colonoscopy, Past Psychological History: Depression Smoking Status: Never smoker Past Alcohol Use History: None Reported Past Drug Use History: None Reported General Exam Limitations: no limitations General appearance: alert, in no apparent distress Head exam: Present: atraumatic, normocephalic Eye exam: Present: other (Left eye lateral deviation). Absent: PERRL, EOMI ENT exam: Present: normal exam, mucous membranes moist Neck exam: Present: normal inspection. Absent: tenderness, meningismus Respiratory exam: Present: normal lung sounds bilaterally. Absent: respiratory distress, wheezes Cardiovascular Exam: Present: regular rate, normal rhythm GI/Abdominal exam: Present: soft. Absent: distended, tenderness, guarding Extremities exam: Present: normal inspection, normal capillary refill. Absent: calf tenderness Neurological exam: Present: alert, oriented X3. Absent: motor sensory deficit Psychiatric exam: Absent: depressed, agitated, anxious, homicidal ideation, suicidal ideation Skin exam: Present: warm, dry, intact. Absent: cyanosis, diaphoretic Course Vital Signs 12/08/19 17:02 Temperature 98.1 F Pulse Rate 106 H Respiratory 18 Rate Blood Pressure 127/89 O2 Sat by Pulse 98 Oximetry Medical Decision Making - Medical Decision Making 79-year-old male presented for agitation and psychiatric evaluation. Patient is calm, cooperative and alert and oriented to time my evaluation. He is medically cleared and evaluated by EPS in the emergency department. Case is discussed with the on-call psychiatrist who does not feel this patient needs to be admitted at this time. Patient can be discharged back to the [facility]. This is communicated with [facility] administration. I will prescribe a short course of ativan. Disposition Clinical Impression: Dementia Disposition: HOME SELF-CARE Condition: Fair Instructions (If sedation given, give patient instructions): Dementia (ED) Prescriptions: LORazepam [Ativan] 0.5 mg PO BID PRN 3 Days #6 tab PRN Reason: Agitation Is patient prescribed a controlled substance at d/c from ED?: No Referrals: None,Stated [Primary Care Provider] - 1-2 days Elijah Johnson DO [STAFF PHYSICIAN] - 1-2 days Time of Disposition: 18:37
[2019-12-08 21:15] VITALS: BP 137/88; PULSE 98; TEMP 97.9
== END 2019-12-08 19:12 | disposition home or self-care (01) ==
LOC: EC 16:57
DX: F03.90 Unspecified dementia, unspecified severity, without behavioral disturbance, psychotic disturbance, mood disturbance, and anxiety (principal); R45.1 Restlessness and agitation; H54.8 Legal blindness, as defined in USA; E78.5 Hyperlipidemia, unspecified; I10 Essential (primary) hypertension; Z79.899 Other long term (current) drug therapy
CPT/HCPCS: 82075; 99285

== ENCOUNTER 2019-12-25 23:15 | Emergency (ER) | payer MEDICARE, OTHER ==
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
[2019-12-26 05:54] LABS: Basophils % (A) 0 %; Eosinophils # (A) 0.2 k/uL (0-0.7); Eosinophils % (A) 6 %; HCT 37.4 % (39.0-53.0); HGB 12.4 gm/dL (13.0-17.5); Lymphocytes # (A) 1.6 k/uL (1.0-4.8); Lymphocytes % (A) 42 %; MCH 31.9 pg (25.0-35.0); MCHC 33.3 g/dL (31.0-37.0); MCV 95.8 fL (80.0-100.0); Mean Platelet Volume 8.8; Monocytes # (A) 0.2 k/uL (0-1.0); Monocytes % (A) 4 %; Neutrophils # (A) 1.7 k/uL (1.3-7.7); Neutrophils % (A) 45 %; Platelet Count 131 k/uL (150-450); RDW 12.8 % (11.5-15.5); WBC 3.8 k/uL (3.8-10.6)
[2019-12-26 06:04] LABS: Amphetamine Screen,Urine Not Detected (NotDetected); Barbiturate Screen,Urine Not Detected (NotDetected); Benzodiazepines Screen,Urine Not Detected (NotDetected); Cocaine Screen,Urine Not Detected (NotDetected); Methadone Screen, Urine Not Detected (NotDetected); Opiate Screen,Urine Not Detected (NotDetected); Oxycodone Screen, Urine Not Detected (NotDetected); Phencyclidine Screen,Urine Not Detected (NotDetected); Tricyclic Antidepressant,Urine Not Detected (NotDetected); Urn Cannabinoid Scrn Not Detected (NotDetected)
[2019-12-26 06:08] LABS: African American GFR (CKD) >90 (>60 ml/min/1.73 sqM); Alcohol <10 mg/dL; Anion Gap 4 mmol/L; Blood Urea Nitrogen 8 mg/dL (9-20); Calcium 8.6 mg/dL (8.4-10.2); Carbon Dioxide 28 mmol/L (22-30); Chloride 108 mmol/L (98-107); Glucose 109 mg/dL (74-99); Non-African American GFR(CKD) 87 (>60 ml/min/1.73 sqM); Potassium 3.6 mmol/L (3.5-5.1); Sodium 140 mmol/L (137-145)
[2019-12-26 08:08] VITALS: PULSE 76; RESP 18; TEMP 98.2
[2019-12-26 09:53] VITALS: BP 130/74
== END 2019-12-26 09:52 ==
LOC: EC 23:15
DX: F32.9 Major depressive disorder, single episode, unspecified (principal); R45.851 Suicidal ideations; H54.8 Legal blindness, as defined in USA; E78.5 Hyperlipidemia, unspecified; I10 Essential (primary) hypertension; Z79.899 Other long term (current) drug therapy
CPT/HCPCS: 82075; 36415; 80048; 85025; 80306; 99285; G0480; 80320

== ENCOUNTER → 2021-01-01 | Outpatient (CLI) | payer MEDICARE, OTHER ==
--- NOTE | 2021-01-01 10:07 | US ---
EXAMINATION TYPE: US abdomen complete DATE OF EXAM: 01/01/2021 COMPARISON: NONE CLINICAL HISTORY: D69.9 THROMBOCYTOPENIA. Thrombocytpenia EXAM MEASUREMENTS: Liver Length: 11 cm Gallbladder Wall: Not visualized due to bowel gas CBD: .4 cm Spleen: 8.5 cm Right Kidney: 9.9 x 4.3 cm Left Kidney: 12.1 x 5.8 x 4.1 cm Pancreas: Obscured by bowel gas Liver: Limited due to bowel gas. Gallbladder: Obscured by overlying bowel gas Evidence for sonographic Sarmiento's sign: No CBD: wnl Spleen: wnl Right Kidney: Limited due to bowel gas. Left Kidney: Cystic area seen upper pole 6.0 x 7.4 x 5.5 cm. Upper IVC: Limited Abd Aorta: Obscured by overlying bowel gas IMPRESSION: 1. Exam limited due to overlying bowel gas. 2. Large cyst left kidney
== END | disposition home or self-care (01) ==
LOC: RADUSWWP 08:28
PROVIDERS: ATTEND Family Medicine
DX: N28.1 Cyst of kidney, acquired (principal)
CPT/HCPCS: 76700

== ENCOUNTER → 2021-03-03 | Outpatient (CLI) | payer MEDICARE, OTHER ==
--- NOTE | 2021-03-03 14:55 | XR ---
EXAMINATION TYPE: XR bone survey complete DATE OF EXAM: 03/03/2021 COMPARISON: CT brain December 01, 2019. CTA chest and chest x-ray December 04, 2019. HISTORY: Leukopenia. Thrombocytopenia. Monoclonal gammopathy. Malignant neoplasm of small ball. Right arm pain. Bony calvarium : 2 views of the bony calvarium demonstrate no suspicious new lytic lesion. Chest x-ray: Osseous structures are demineralized. No distinct suspicious lytic lesion in the bilater al ribs. Spine: Two views of the cervical, thoracic and lumbar spines are submitted. Images show multilevel s purring in the spine. Straightening is present. No suspicious focal lytic lesion is clearly seen. Sli ght grade 1 retrolisthesis C3 on C4. Cervical spine shows mild to moderate disc space narrowing great est C6-C7 level. Lumbar spine shows moderate early multilevel disc space narrowing. There is prominen t facet arthropathy in the mid to lower lumbar spine. PELVIS: Single view of the pelvis slightly suboptimal as there is lucency from overlying bowel gas. N o definitive suspicious lytic lesion identified. UPPER EXTREMITIES: Two views of the upper extremities show demineralization. No distinct suspicious l ytic lesions seen. LOWER EXTREMITIES: 2 views of the lower extremities show no definitive suspicious focal lytic lesion in the femurs bilaterally. IMPRESSION: No definitive suspicious focal lytic lesion identified on survey study.
== END | disposition home or self-care (01) ==
LOC: RADXRMAIN 13:32
PROVIDERS: ATTEND Internal Medicine Hematology & Oncology
DX: C17.8 Malignant neoplasm of overlapping sites of small intestine (principal); D47.2 Monoclonal gammopathy; D69.6 Thrombocytopenia, unspecified; D72.819 Decreased white blood cell count, unspecified
CPT/HCPCS: 77075

== ENCOUNTER → 2021-03-03 | Outpatient (CLI) | payer MEDICARE, OTHER ==
--- NOTE | 2021-03-03 13:35 | US ---
EXAMINATION TYPE: US kidneys/renal and bladder DATE OF EXAM: 03/03/2021 COMPARISON: NONE CLINICAL HISTORY: R93.41 Abn radiologic findings on diagnostic,D47.2,D69.6,C17. EXAM MEASUREMENTS: Right Kidney: 9.5 x 6.1 x 4.6 cm Left Kidney: 9.8 x 5.4 x 4.7 cm Right Kidney: No hydronephrosis or masses seen Left Kidney: 2 superior cysts measuring 3.1 x 3.1 x 3.0 and 6.3 x 6.3 x 5.7cm Bladder: wall appears thickened Prominent prosate There is no evidence for hydronephrosis at this point in time. No nephrolithiasis is seen. The urin judd bladder is anechoic. Bilateral ureteral jets are seen. IMPRESSION: Renal cystic changes noted.
== END | disposition home or self-care (01) ==
LOC: RADUSWWP 12:48
PROVIDERS: ATTEND Internal Medicine Hematology & Oncology
DX: C17.8 Malignant neoplasm of overlapping sites of small intestine (principal); N28.1 Cyst of kidney, acquired
CPT/HCPCS: 76770

== ENCOUNTER 2022-10-10 09:18 | Emergency (ER) | payer MEDICARE, OTHER ==
[2022-10-10] MEDS ORDERED: SODIUM CHLORIDE 0.9% 500 ML 500 ML IV ONE (09:23)
[2022-10-10 09:36] VITALS: RESP 18
--- NOTE | 2022-10-10 09:52 | ED ---
General Adult HPI - General Chief complaint: Altered Mental Status Stated complaint: AMS Time Seen by Provider: 10/10/22 09:18 Source: patient, EMS, RN notes reviewed, old records reviewed, Caregiver Mode of arrival: EMS Limitations: no limitations - History of Present Illness Initial comments: This is an 82-year-old male who presents emergency Department via EMS. Most of the history from EMS and the caregiver. They brought him in because he was alt ered mentally. According to EMS last night the police found him outside and running back to his apartment. Patient does not remember this. According to the caregiver when she arrived this morning he was not at his neurologic baseline. He was confused and normally is not. Patient currently has no complaints. He denies any headache she denies chest pain denies any difficulty breathing shortness of breath. Patient denies any recent fever chills or cough per patient denies any abdominal pain patient denies nausea vomiting diarrhea. Patient denies headache patient denies numbness weakness. Patient has no complaints at all and he is currently alert and oriented 3 - Related Data Home Medications Medication Instructions Recorded Confirmed Brimonidine Tartrate [Alphagan P 1 drop RIGHT EYE BID 10/10/22 10/10/22 0.2% Ophth Soln] amLODIPine [Norvasc] 5 mg PO DAILY 10/10/22 10/10/22 Previous Rx's Medication Instructions Recorded Latanoprost [Xalatan 0.005%] 1 drop RIGHT EYE HS #2.5 ml 12/04/19 Pantoprazole [Protonix] 40 mg PO DAILY #30 tablet. 12/04/19 Potassium Chloride [Klor-Con 20] 20 meq PO DAILY #30 tab 12/04/19 Allergies Allergy/AdvReac Type Severity Reaction Status Date / Time No Known Allergies Allergy Verified 10/10/22 11:02 Review of Systems ROS Statement: Those systems with pertinent positive or pertinent negative responses have been documented in the HPI. ROS Other: All systems not noted in ROS Statement are negative. Past Medical History Past Medical History: Hyperlipidemia, Hypertension Additional Past Medical History / Comment(s): Pt legally blind, History of Any Multi-Drug Resistant Organisms: None Reported Additional Past Surgical History / Comment(s): Colonoscopy, Past Psychological History: Depression Smoking Status: Never smoker Past Alcohol Use History: None Reported Past Drug Use History: None Reported General Exam - General Exam Comments Initial Comments: GENERAL: Patient is well-developed and well-nourished. Patient is nontoxic and well- hydrated and is in no acute distress. ENT: Neck is soft and supple. No significant lymphadenopathy is noted. Oropharynx is clear. Moist mucous membranes. Neck has full range of motion without eliciting any pain. EYES: The sclera were anicteric and conjunctiva were pink and moist. Extraocular movements were intact and pupils were equal round and reactive to light. Eyelids were unremarkable. PULMONARY: Unlabored respirations. Good breath sounds bilaterally. No audible rales rhonchi or wheezing was noted. CARDIOVASCULAR: There is a regular rate and rhythm without any murmurs gallops or rubs. ABDOMEN: Soft and nontender with normal bowel sounds. SKIN: Skin is clear with no lesions or rashes and otherwise unremarkable. NEUROLOGIC: Patient is alert and oriented x3. Cranial nerves II through XII are grossly in tact. Motor and sensory are also intact. Normal speech, volume and content. Symmetrical smile. MUSCULOSKELETAL: Normal extremities with adequate strength and full range of motion. No lower extremity swelling or edema. No calf tenderness. LYMPHATICS: No significant lymphadenopathy is noted PSYCHIATRIC: Normal psychiatric evaluation. Limitations: no limitations Course Vital Signs 10/10/22 09:31 Temperature 98.0 F Pulse Rate 64 Respiratory 18 Rate Blood Pressure 159/97 O2 Sat by Pulse 97 Oximetry Medical Decision Making - Medical Decision Making EKG was interpreted by me. EKG shows sinus rhythm at 66 bpm IN interval is on 70 QRS 83 QT interval 380 QTC is 402. Patient's EKG shows no ST segment elevation or depression. Chest x-ray was interpreted by me. Chest x-ray shows no acute abnormality. I will back into the room and the caregiver stated that the patient is alert and oriented 4 and is at his baseline currently and since she's been here his been at his baseline. She states that she will make sure she stops and more often to make sure he is doing okay. She states she will also contact patient's family to make sure they stop and more often. The changes he will be sent back. CT of the brain was interpreted by me. CT showed no acute abnormality. - Lab Data Result diagrams: 10/10/22 09:38 10/10/22 09:38 Lab Results 10/10/22 10/10/22 10/10/22 Range/Units 09:38 09:38 09:38 WBC 4.3 (3.8-10.6) k/uL RBC 4.10 L (4.30-5.90) m/uL Hgb 13.6 (13.0-17.5) gm/dL Hct 39.7 (39.0-53.0) % MCV 96.7 (80.0-100.0) fL MCH 33.1 (25.0-35.0) pg MCHC 34.2 (31.0-37.0) g/dL RDW 13.3 (11.5-15.5) % Plt Count 126 L (150-450) k/uL MPV 9.5 Neutrophils % 49 % Lymphocytes % 41 % Monocytes % 3 % Eosinophils % 5 % Basophils % 0 % Neutrophils # 2.1 (1.3-7.7) k/uL Lymphocytes # 1.8 (1.0-4.8) k/uL Monocytes # 0.1 (0-1.0) k/uL Eosinophils # 0.2 (0-0.7) k/uL Basophils # 0.0 (0-0.2) k/uL Sodium 145 (137-145) mmol/L Potassium 4.1 (3.5-5.1) mmol/L Chloride 109 H (98-107) mmol/L Carbon Dioxide 31 H (22-30) mmol/L Anion Gap 5 mmol/L BUN 12 (9-20) mg/dL Creatinine 0.72 (0.66-1.25) mg/dL Est GFR (CKD-EPI)AfAm >90 (>60 ml/min/1.73 sqM) Est GFR (CKD-EPI)NonAf 87 (>60 ml/min/1.73 sqM) Glucose 111 H (74-99) mg/dL Calcium 8.6 (8.4-10.2) mg/dL Total Bilirubin 1.0 (0.2-1.3) mg/dL AST 25 (17-59) U/L ALT 16 (4-49) U/L Alkaline Phosphatase 135 H (38-126) U/L Troponin I (0.000-0.034) ng/mL Total Protein 6.4 (6.3-8.2) g/dL Albumin 4.0 (3.5-5.0) g/dL Urine Color Yellow Urine Appearance Clear (Clear) Urine pH 7.0 (5.0-8.0) Ur Specific Monarch 1.021 (1.001-1.035) Urine Protein Trace H (Negative) Urine Glucose (UA) Negative (Negative) Urine Ketones Negative (Negative) Urine Blood Negative (Negative) Urine Nitrite Negative (Negative) Urine Bilirubin Negative (Negative) Urine Urobilinogen <2.0 (<2.0) mg/dL Ur Leukocyte Esterase Negative (Negative) Urine Opiates Screen Not Detected (NotDetected) Ur Oxycodone Screen Not Detected (NotDetected) Urine Methadone Screen Not Detected (NotDetected) Ur Propoxyphene Screen Not Detected (NotDetected) Ur Barbiturates Screen Not Detected (NotDetected) U Tricyclic Antidepress Not Detected (NotDetected) Ur Phencyclidine Scrn Not Detected (NotDetected) Ur Amphetamines Screen Not Detected (NotDetected) U Methamphetamines Scrn Not Detected (NotDetected) U Benzodiazepines Scrn Not Detected (NotDetected) Urine Cocaine Screen Not Detected (NotDetected) U Marijuana (THC) Screen Not Detected (NotDetected) 10/10/22 Range/Units 09:38 WBC (3.8-10.6) k/uL RBC (4.30-5.90) m/uL Hgb (13.0-17.5) gm/dL Hct (39.0-53.0) % MCV (80.0-100.0) fL MCH (25.0-35.0) pg MCHC (31.0-37.0) g/dL RDW (11.5-15.5) % Plt Count (150-450) k/uL MPV Neutrophils % % Lymphocytes % % Monocytes % % Eosinophils % % Basophils % % Neutrophils # (1.3-7.7) k/uL Lymphocytes # (1.0-4.8) k/uL Monocytes # (0-1.0) k/uL Eosinophils # (0-0.7) k/uL Basophils # (0-0.2) k/uL Sodium (137-145) mmol/L Potassium (3.5-5.1) mmol/L Chloride (98-107) mmol/L Carbon Dioxide (22-30) mmol/L Anion Gap mmol/L BUN (9-20) mg/dL Creatinine (0.66-1.25) mg/dL Est GFR (CKD-EPI)AfAm (>60 ml/min/1.73 sqM) Est GFR (CKD-EPI)NonAf (>60 ml/min/1.73 sqM) Glucose (74-99) mg/dL Calcium (8.4-10.2) mg/dL Total Bilirubin (0.2-1.3) mg/dL AST (17-59) U/L ALT (4-49) U/L Alkaline Phosphatase (38-126) U/L Troponin I <0.012 (0.000-0.034) ng/mL Total Protein (6.3-8.2) g/dL Albumin (3.5-5.0) g/dL Urine Color Urine Appearance (Clear) Urine pH (5.0-8.0) Ur Specific Monarch (1.001-1.035) Urine Protein (Negative) Urine Glucose (UA) (Negative) Urine Ketones (Negative) Urine Blood (Negative) Urine Nitrite (Negative) Urine Bilirubin (Negative) Urine Urobilinogen (<2.0) mg/dL Ur Leukocyte Esterase (Negative) Urine Opiates Screen (NotDetected) Ur Oxycodone Screen (NotDetected) Urine Methadone Screen (NotDetected) Ur Propoxyphene Screen (NotDetected) Ur Barbiturates Screen (NotDetected) U Tricyclic Antidepress (NotDetected) Ur Phencyclidine Scrn (NotDetected) Ur Amphetamines Screen (NotDetected) U Methamphetamines Scrn (NotDetected) U Benzodiazepines Scrn (NotDetected) Urine Cocaine Screen (NotDetected) U Marijuana (THC) Screen (NotDetected) Disposition Clinical Impression: Altered mental status Disposition: HOME SELF-CARE Condition: Good Instructions (If sedation given, give patient instructions): Altered Mental Status (ED) Is patient prescribed a controlled substance at d/c from ED?: No Referrals: Concepcion Miranda MD [Primary Care Provider] - 1-2 days Time of Disposition: 11:19
[2022-10-10 09:56] LABS: Basophils % (A) 0 %; Eosinophils # (A) 0.2 k/uL (0-0.7); Eosinophils % (A) 5 %; HCT 39.7 % (39.0-53.0); HGB 13.6 gm/dL (13.0-17.5); Lymphocytes # (A) 1.8 k/uL (1.0-4.8); Lymphocytes % (A) 41 %; MCH 33.1 pg (25.0-35.0); MCHC 34.2 g/dL (31.0-37.0); MCV 96.7 fL (80.0-100.0); Mean Platelet Volume 9.5; Monocytes # (A) 0.1 k/uL (0-1.0); Monocytes % (A) 3 %; Neutrophils # (A) 2.1 k/uL (1.3-7.7); Neutrophils % (A) 49 %; Platelet Count 126 k/uL (150-450); RDW 13.3 % (11.5-15.5); WBC 4.3 k/uL (3.8-10.6)
--- NOTE | 2022-10-10 10:16 | XR ---
EXAMINATION TYPE: XR chest 2V DATE OF EXAM: 10/10/2022 COMPARISON: 12/04/19 HISTORY: Shortness of breath TECHNIQUE: Frontal and lateral views of the chest are obtained. FINDINGS: Scattered senescent parenchymal changes noted. No evidence for infiltrate. No evidence for atelectasis. Heart size is stable. Mediastinal structures are stable and grossly unremarkable. No evidence for hilar prominence. Degenerative changes dorsal spine. IMPRESSION: 1. No evidence for acute pulmonary disease.
[2022-10-10 10:19] LABS: ALT 16 U/L (4-49); AST 25 U/L (17-59); African American GFR (CKD) >90 (>60 ml/min/1.73 sqM); Alkaline Phosphatase 135 U/L (38-126); Anion Gap 5 mmol/L; Blood Urea Nitrogen 12 mg/dL (9-20); Calcium 8.6 mg/dL (8.4-10.2); Carbon Dioxide 31 mmol/L (22-30); Chloride 109 mmol/L (98-107); Glucose 111 mg/dL (74-99); Non-African American GFR(CKD) 87 (>60 ml/min/1.73 sqM); Potassium 4.1 mmol/L (3.5-5.1); Sodium 145 mmol/L (137-145); Total Protein 6.4 g/dL (6.3-8.2)
[2022-10-10 10:40] LABS: Appearance,Urine Clear (Clear); Bilirubin,Urine Negative (Negative); Blood,Urine Negative (Negative); Color,Urine Yellow; Glucose,Urine (UA) Negative (Negative); Ketones,Urine Negative (Negative); Leukocyte Esterase,Urine Negative (Negative); Nitrite,Urine Negative (Negative); Protein,Urine Trace (Negative); Specific Gravity,Urine 1.021 (1.001-1.035); Urobilinogen,Urine <2.0 mg/dL (<2.0)
[2022-10-10 10:53] LABS: Amphetamine Screen,Urine Not Detected (NotDetected); Barbiturate Screen,Urine Not Detected (NotDetected); Benzodiazepines Screen,Urine Not Detected (NotDetected); Cocaine Screen,Urine Not Detected (NotDetected); Methadone Screen, Urine Not Detected (NotDetected); Opiate Screen,Urine Not Detected (NotDetected); Oxycodone Screen, Urine Not Detected (NotDetected); Phencyclidine Screen,Urine Not Detected (NotDetected); Tricyclic Antidepressant,Urine Not Detected (NotDetected); Urn Cannabinoid Scrn Not Detected (NotDetected)
--- NOTE | 2022-10-10 11:59 | CT ---
EXAMINATION TYPE: CT brain wo con DATE OF EXAM: 10/10/2022 COMPARISON: 12/01/2019 HISTORY: AMS CT DLP: 1166.[address] of the brain was performed. The ventricles, basal cisterns and sulci overlying the cerebral convexities demonstrate mild enlargem ent. There is no evidence for intracranial hemorrhage or sulcal effacement. There is decreased attenuation about the periventricular white matter and deep white matter of both c erebral hemispheres, compatible with chronic small vessel ischemia. Differential diagnosis does inclu de demyelination. No mass effects are seen.No midline shift. Osseous calvarium is intact. If symptoms persist consider MRI. IMPRESSION: 1. Age related atrophic and chronic small vessel ischemic change without acute intracranial process s een at this time.
[2022-10-10 12:42] VITALS: BP 150/91; PULSE 85; TEMP 98
== END 2022-10-10 12:42 | disposition home or self-care (01) ==
LOC: EC 09:18
DX: R41.82 Altered mental status, unspecified (principal); I10 Essential (primary) hypertension; F32.A Depression, unspecified; Z79.899 Other long term (current) drug therapy
CPT/HCPCS: 36415; 70450; 71046; 80053; 80306; 81003; 84484; 85025; 93005; 99285

== ENCOUNTER 2024-08-08 09:28 | Inpatient (IN) | payer MEDICARE, OTHER ==
[2024-08-08 10:28] LABS: Basophils % (A) 0 %; Eosinophils # (A) 0.2 k/uL (0-0.7); Eosinophils % (A) 5 %; HCT 41.3 % (39.0-53.0); HGB 13.4 gm/dL (13.0-17.5); Lymphocytes # (A) 1.2 k/uL (1.0-4.8); Lymphocytes % (A) 32 %; MCHC 32.5 g/dL (31.0-37.0); MCV 98.6 fL (80.0-100.0); Mean Platelet Volume 8.6; Monocytes # (A) 0.2 k/uL (0-1.0); Monocytes % (A) 5 %; Neutrophils # (A) 2.1 k/uL (1.3-7.7); Neutrophils % (A) 57 %; Platelet Count 150 k/uL (150-450); RBC 4.19 m/uL (4.30-5.90); RDW 13.2 % (11.5-15.5); WBC 3.7 k/uL (3.8-10.6)
[2024-08-08] MEDS: SODIUM CHLORIDE 0.9% 500 ML 500 ML IV ONE (10:36)
[2024-08-08 10:43] LABS: INR 0.9 (<1.2); Partial Thromboplastin Time 23.5 sec (22.0-30.0); Prothrombin Time 10.4 sec (10.0-12.5)
[2024-08-08 10:45] LABS: ALT 10 U/L (4-49); African American GFR (CKD) >90 (>60 ml/min/1.73 sqM); Albumin 4.5 g/dL (3.5-5.0); Anion Gap 3 mmol/L; Blood Urea Nitrogen 8 mg/dL (9-20); Calcium 9.4 mg/dL (8.4-10.2); Carbon Dioxide 29 mmol/L (22-30); Chloride 111 mmol/L (98-107); Glucose 108 mg/dL (74-99); Non-African American GFR(CKD) 87 (>60 ml/min/1.73 sqM); Sodium 143 mmol/L (137-145)
--- NOTE | 2024-08-08 10:53 | XR ---
EXAMINATION TYPE: XR chest 2V DATE OF EXAM: 08/08/2024 COMPARISON: 01/03/2023 HISTORY: Altered mental status TECHNIQUE: Frontal and lateral views of the chest are obtained. FINDINGS: There is no focal air space opacity, pleural effusion, or pneumothorax seen. The cardiac silhouette size is within normal limits. The osseous structures are intact. IMPRESSION: No acute cardiopulmonary process. [facility], Workstation: [facility]IDA 08/08/2024 10:51 AM
[2024-08-08 11:09] LABS: AST 26 U/L (17-59); Alkaline Phosphatase 98 U/L (38-126)
--- NOTE | 2024-08-08 11:15 | ED ---
General Adult HPI - General Source: patient, EMS, RN notes reviewed, old records reviewed Mode of arrival: EMS Limitations: altered mental status <Ramirez Galindo - Last Filed: 08/08/24 15:04> <Ramirez Early - Last Filed: 08/08/24 20:47> - General Chief complaint: Altered Mental Status Stated complaint: AMS Time Seen by Provider: 08/08/24 09:30 - History of Present Illness Initial comments: This is an 83-year-old male who presents to the emergency department for altered mental status and hallucinations. Patient states he used to belong to the [employer] and he has been trying to get in contact with him recently. According to the guardian he has been a little altered and more weak than normal. Patient himself denies any headache she denies numbness weakness. Patient denies chest pain difficulty breathing or shortness of breath. Patient has any recent fever chills or cough or patient denies any abdominal pain patient Nu[place] nausea vomiting or diarrhea. (Ramirez Galindo) - Related Data Home Medications Medication Instructions Recorded Confirmed amLODIPine [Norvasc] 10 mg PO DAILY 01/03/23 08/08/24 Cholecalciferol (Vitamin D3) 50 mcg PO DAILY 08/08/24 08/08/24 [Vitamin D3 (50 Mcg = 2000 Iu)] Dorzolamide-Timol 2.23%/0.68% 1 drop BOTH EYES BID 08/08/24 08/08/24 [Cosopt] Simvastatin [Zocor] 20 mg PO DAILY 08/08/24 08/08/24 Previous Rx's Medication Instructions Recorded Pantoprazole [Protonix] 40 mg PO DAILY #30 tablet. 12/04/19 Allergies Allergy/AdvReac Type Severity Reaction Status Date / Time No Known Allergies Allergy Verified 08/08/24 09:34 Review of Systems ROS Other: All systems not noted in ROS Statement are negative. <Ramirez Galindo - Last Filed: 08/08/24 15:04> ROS Other: All systems not noted in ROS Statement are negative. <Ramirez Early - Last Filed: 08/08/24 20:47> ROS Statement: Those systems with pertinent positive or pertinent negative responses have been documented in the HPI. Past Medical History Past Medical History: Hyperlipidemia, Hypertension Additional Past Medical History / Comment(s): Pt legally blind, History of Any Multi-Drug Resistant Organisms: None Reported Additional Past Surgical History / Comment(s): Colonoscopy, Past Psychological History: Depression Smoking Status: Never smoker Past Alcohol Use History: None Reported Past Drug Use History: None Reported <Ramirez Galindo - Last Filed: 08/08/24 15:04> General Exam Limitations: altered mental status <Ramirez Galindo - Last Filed: 08/08/24 15:04> - General Exam Comments Initial Comments: GENERAL: Patient is well-developed and well-nourished. Patient is nontoxic and well- hydrated and is in no acute distress. ENT: Neck is soft and supple. No significant lymphadenopathy is noted. Oropharynx is clear. Moist mucous membranes. Neck has full range of motion without eliciting any pain. EYES: The sclera were anicteric and conjunctiva were pink and moist. Patient states he is legally blind PULMONARY: Unlabored respirations. Good breath sounds bilaterally. No audible rales rhonchi or wheezing was noted. CARDIOVASCULAR: There is a regular rate and rhythm without any murmurs gallops or rubs. ABDOMEN: Soft and nontender with normal bowel sounds. SKIN: Skin is clear with no lesions or rashes and otherwise unremarkable. NEUROLOGIC: Patient is alert and oriented x3. Cranial nerves II through XII are grossly intact. Motor and sensory are also intact. Normal speech, volume and content. Symmetrical smile. MUSCULOSKELETAL: Normal extremities with adequate strength and full range of motion. No lower extremity swelling or edema. No calf tenderness. LYMPHATICS: No significant lymphadenopathy is noted PSYCHIATRIC: Patient insists he used to work with the [employer] and he has been trying to get a hold of them but they have not responded (Ramirez Galindo) Course Vital Signs 08/08/24 08/08/24 08/08/24 09:29 11:43 17:34 Temperature 98.4 F Pulse Rate 63 60 59 L Respiratory 18 16 18 Rate Blood Pressure 154/106 182/106 173/106 O2 Sat by Pulse 97 99 99 Oximetry 08/08/24 18:42 Temperature Pulse Rate 66 Respiratory 18 Rate Blood Pressure 189/79 O2 Sat by Pulse 98 Oximetry Medical Decision Making - Lab Data Result diagrams: 08/08/24 09:54 08/08/24 09:54 <Ramirez Galindo - Last Filed: 08/08/24 15:04> - Lab Data Result diagrams: 08/08/24 09:54 08/08/24 09:54 <Ramirez Early - Last Filed: 08/08/24 20:47> - Medical Decision Making EKG is interpreted by myself read EKG shows a sinus rhythm at 61 bpm SD 195 QRS 97 QT interval is 421 QTc is 425. Patient EKG shows no ST segment elevation or depression Was pt. sent in by a medical professional or institution ([facility]AYKAY Weldon, VICE CHAIRMAN, urgent care, hospital, or group home...) When possible be specific @ -[No] Did you speak to anyone other than the patient for history (EMS, parent, family, police, friend...)? What history was obtained from this source @ -EMS gave verbal history because the patient was unaware of why he was brought to the hospital Did you review nursing and triage notes (agree or disagree)? Why? @ -[I reviewed and agree with nursing and triage notes] Were old charts reviewed (outside hosp., previous admission, EMS record, old EKG, old radiological studies, urgent care reports/EKG's, group home records)? Report findings @ -[No old charts were reviewed] Differential Diagnosis? @ -Differential Altered Mental Status: Hypoglycemia, DKA, hypercapnia, ETOH, overdose, CO poisoning, trauma, myxedema coma, HTN encephalopathy, infection, encephalitis, psychosis, intercranial hemorrhage, hepatic encephalopathy, meningitis, CVA, this is not meant to be an all-inclusive list EKG interpreted by me (3pts min.). @ -[As above] X-rays interpreted by me (1pt min.). @ -[None done] CT interpreted by me (1pt min.). @ -[None done] U/S interpreted by me (1pt. min.). @ -[None done] What testing was considered but not performed or refused? (CT, X-rays, U/S, labs)? Why? @ -[None] What meds were considered but not given or refused? Why? @ -[None] Did you discuss the management of the patient with other professionals (professionals i.e. , KAYKAY, VICE CHAIRMAN, lab, RT, psych nurse, social science manager, project management advisor, teacher, professional security officer, nurse outreach case manager)? Give summary @ -EPS evaluated the patient and they were making a determination as to whether the patient was safe to go home and going to reach out to the guardian but there is no criteria to admit the patient as a psychiatric patient. Was smoking cessation discussed for >3mins.? @ -[No] Was critical care preformed (if so, how long)? @ -[No] Were there social determinants of health that impacted care today? How? (Homelessness, low income, unemployed, alcoholism, drug addiction, transportation, low edu. Level, literacy, decrease access to med. care, residential, rehab)? @ -[No] Was there de-escalation of care discussed even if they declined (Discuss DNR or withdrawal of care, Hospice)? DNR status @ -[No] What co-morbidities impacted this encounter? (DM, HTN, Smoking, COPD, CAD, Cancer, CVA, ARF, Chemo, Hep., AIDS, mental health diagnosis, sleep apnea, morbid obesity)? @ -[None] Was patient admitted / discharged? Hospital course, mention meds given and route, prescriptions, significant lab abnormalities, going to OR and other pertinent info. @ -Dr. Early were taken over the care of this patient at 3 PM (Ramirez Galindo) 83 male to the ER for evaluation, patient was presumed altered mental status had had psychiatric evaluation here in the ER a not stable for discharge back to facility, patient's guardian stating that patient is not safe for home (Ramirez Early) - Lab Data Lab Results 08/08/24 08/08/24 08/08/24 Range/Units 09:54 09:54 09:54 WBC 3.7 L (3.8-10.6) k/uL RBC 4.19 L (4.30-5.90) m/uL Hgb 13.4 (13.0-17.5) gm/dL Hct 41.3 (39.0-53.0) % MCV 98.6 (80.0-100.0) fL MCH 32.0 (25.0-35.0) pg MCHC 32.5 (31.0-37.0) g/dL RDW 13.2 (11.5-15.5) % Plt Count 150 (150-450) k/uL MPV 8.6 Neutrophils % 57 % Lymphocytes % 32 % Monocytes % 5 % Eosinophils % 5 % Basophils % 0 % Neutrophils # 2.1 (1.3-7.7) k/uL Lymphocytes # 1.2 (1.0-4.8) k/uL Monocytes # 0.2 (0-1.0) k/uL Eosinophils # 0.2 (0-0.7) k/uL Basophils # 0.0 (0-0.2) k/uL PT 10.4 (10.0-12.5) sec INR 0.9 (<1.2) APTT 23.5 (22.0-30.0) sec Sodium (137-145) mmol/L Potassium (3.5-5.1) mmol/L Chloride (98-107) mmol/L Carbon Dioxide (22-30) mmol/L Anion Gap mmol/L BUN (9-20) mg/dL Creatinine (0.66-1.25) mg/dL Est GFR (CKD-EPI)AfAm (>60 ml/min/1.73 sqM) Est GFR (CKD-EPI)NonAf (>60 ml/min/1.73 sqM) Glucose (74-99) mg/dL Calcium (8.4-10.2) mg/dL Total Bilirubin (0.2-1.3) mg/dL AST (17-59) U/L ALT (4-49) U/L Alkaline Phosphatase (38-126) U/L Troponin I (0.000-0.034) ng/mL Total Protein (6.3-8.2) g/dL Albumin (3.5-5.0) g/dL Urine Color Yellow Urine Appearance Clear (Clear) Urine pH 6.5 (5.0-8.0) Ur Specific Cutler 1.021 (1.001-1.035) Urine Protein Trace H (Negative) Urine Glucose (UA) Negative (Negative) Urine Ketones Negative (Negative) Urine Blood Negative (Negative) Urine Nitrite Negative (Negative) Urine Bilirubin Negative (Negative) Urine Urobilinogen 4.0 (<2.0) mg/dL Ur Leukocyte Esterase Negative (Negative) Urine Opiates Screen Not Detected (NotDetected) Ur Oxycodone Screen Not Detected (NotDetected) Urine Methadone Screen Not Detected (NotDetected) Ur Barbiturates Screen Not Detected (NotDetected) U Tricyclic Antidepress Not Detected (NotDetected) Ur Phencyclidine Scrn Not Detected (NotDetected) Ur Amphetamines Screen Not Detected (NotDetected) U Methamphetamines Scrn Not Detected (NotDetected) U Benzodiazepines Scrn Not Detected (NotDetected) Urine Cocaine Screen Not Detected (NotDetected) U Marijuana (THC) Screen Not Detected (NotDetected) 08/08/24 08/08/24 Range/Units 09:54 09:54 WBC (3.8-10.6) k/uL RBC (4.30-5.90) m/uL Hgb (13.0-17.5) gm/dL Hct (39.0-53.0) % MCV (80.0-100.0) fL MCH (25.0-35.0) pg MCHC (31.0-37.0) g/dL RDW (11.5-15.5) % Plt Count (150-450) k/uL MPV Neutrophils % % Lymphocytes % % Monocytes % % Eosinophils % % Basophils % % Neutrophils # (1.3-7.7) k/uL Lymphocytes # (1.0-4.8) k/uL Monocytes # (0-1.0) k/uL Eosinophils # (0-0.7) k/uL Basophils # (0-0.2) k/uL PT (10.0-12.5) sec INR (<1.2) APTT (22.0-30.0) sec Sodium 143 (137-145) mmol/L Potassium 4.0 (3.5-5.1) mmol/L Chloride 111 H (98-107) mmol/L Carbon Dioxide 29 (22-30) mmol/L Anion Gap 3 mmol/L BUN 8 L (9-20) mg/dL Creatinine 0.71 (0.66-1.25) mg/dL Est GFR (CKD-EPI)AfAm >90 (>60 ml/min/1.73 sqM) Est GFR (CKD-EPI)NonAf 87 (>60 ml/min/1.73 sqM) Glucose 108 H (74-99) mg/dL Calcium 9.4 (8.4-10.2) mg/dL Total Bilirubin 1.0 (0.2-1.3) mg/dL AST 26 (17-59) U/L ALT 10 (4-49) U/L Alkaline Phosphatase 98 (38-126) U/L Troponin I <0.012 (0.000-0.034) ng/mL Total Protein 7.0 (6.3-8.2) g/dL Albumin 4.5 (3.5-5.0) g/dL Urine Color Urine Appearance (Clear) Urine pH (5.0-8.0) Ur Specific Cutler (1.001-1.035) Urine Protein (Negative) Urine Glucose (UA) (Negative) Urine Ketones (Negative) Urine Blood (Negative) Urine Nitrite (Negative) Urine Bilirubin (Negative) Urine Urobilinogen (<2.0) mg/dL Ur Leukocyte Esterase (Negative) Urine Opiates Screen (NotDetected) Ur Oxycodone Screen (NotDetected) Urine Methadone Screen (NotDetected) Ur Barbiturates Screen (NotDetected) U Tricyclic Antidepress (NotDetected) Ur Phencyclidine Scrn (NotDetected) Ur Amphetamines Screen (NotDetected) U Methamphetamines Scrn (NotDetected) U Benzodiazepines Scrn (NotDetected) Urine Cocaine Screen (NotDetected) U Marijuana (THC) Screen (NotDetected) Disposition <Ramirez Galindo - Last Filed: 08/08/24 15:04> Is patient prescribed a controlled substance at d/c from ED?: No <Ramirez Early - Last Filed: 08/08/24 20:47> Clinical Impression: Altered mental status, Dementia Disposition: ADMITTED IP TO THIS HOSP Condition: Fair Instructions (If sedation given, give patient instructions): Altered Mental Status (ED), Chronic Post Traumatic Headache (ED) Referrals: None,Stated [Primary Care Provider] - 1-2 days
[2024-08-08 12:34] LABS: Appearance,Urine Clear (Clear); Bilirubin,Urine Negative (Negative); Blood,Urine Negative (Negative); Color,Urine Yellow; Glucose,Urine (UA) Negative (Negative); Ketones,Urine Negative (Negative); Leukocyte Esterase,Urine Negative (Negative); Nitrite,Urine Negative (Negative); PH, Urine 6.5 (5.0-8.0); Protein,Urine Trace (Negative); Specific Gravity,Urine 1.021 (1.001-1.035)
[2024-08-08 12:48] LABS: Amphetamine Screen,Urine Not Detected (NotDetected); Barbiturate Screen,Urine Not Detected (NotDetected); Benzodiazepines Screen,Urine Not Detected (NotDetected); Cocaine Screen,Urine Not Detected (NotDetected); Methadone Screen, Urine Not Detected (NotDetected); Opiate Screen,Urine Not Detected (NotDetected); Oxycodone Screen, Urine Not Detected (NotDetected); Phencyclidine Screen,Urine Not Detected (NotDetected); Tricyclic Antidepressant,Urine Not Detected (NotDetected); Urn Cannabinoid Scrn Not Detected (NotDetected)
[2024-08-08] MEDS ORDERED: ONDANSETRON 4 MG/2 ML VIAL IVP PRN (20:45)
[2024-08-08] MEDS ORDERED: NALOXONE 0.4 MG/ML 1 ML VIAL IV PRN (20:45)
[2024-08-08] MEDS: SODIUM CHLORIDE 0.9% 1,000 ML IV SCH (21:21)
[2024-08-09] MEDS: hydrALAZINE HCL 25 MG TAB PO STA (00:15)
--- NOTE | 2024-08-09 03:24 | P.HPIM ---
History of Present Illness H&P Date: 08/08/24 Patient is a 83-year-old male with a PMH of dementia, hypertension, hyperlipidemia, and legally blind who was brought into the emergency room for altered mental status. The patient had been exhibiting paranoid behavior and believes that he was in the [employer]. The patient's legal guardian had also felt that the patient was more weak and confused than usual. The patient was evaluated by psychiatry and was deemed not appropriate for discharge to home where the patient does not have significant services. No meaningful history could be obtained to the patient as he was very confused at the time of interview. Attempted to contact the patient's legal guardian via phone with no response. Chest x-ray in the emergency room was unremarkable with EKG showing sinus rhythm at [address]/T wave changes noted as reviewed by me. Laboratory evaluation revealed an unremarkable urine toxicology and urinalysis with troponin less than 0.012, glucose 108, with chloride 111 with WBC count 3.7. ED documentation reviewed and case discussed with ED provider. Review of systems: Pertinent positives and negatives as discussed in HPI, a complete review of systems was performed and all other systems are negative. Physical examination: Vital signs reviewed General: non toxic, no distress, appears at stated age, normal weight Derm: no unusual rashes/lesions, warm Head: atraumatic, normocephalic, symmetric Eyes: EOMI, no lid lag, anicteric sclera, left pupil nonreactive with right pupi l reactive ENT: Nose and ears atraumatic Neck: No cervical lymphadenopathy, trachea midline, supple Mouth: no lip lesion, mucus membranes moist Cardiovascular: S1S2 reg, no murmur, positive dorsalis pedis pulse bilateral, no edema Lungs: CTA bilateral, no rhonchi, no rales, no accessory muscle use Abdominal: soft, nontender to palpation, no guarding Ext: muscle strength 5 out of 5 in all 4 extremities grossly, no gross muscle atrophy, no contractures, Neuro: CN II-XI grossly intact, no gross focal neuro deficits Psych: Awake, answering basic questions and following basic directions but only oriented to self Assessment: Altered mental status, likely delirium in setting of dementia Leukopenia, similar to baseline Chronic conditions: Hypertension, hyperlipidemia, legally blind Imaging: Chest x-ray in the emergency room was unremarkable with EKG showing sinus rhythm at [address]/T wave changes noted as reviewed by me. Data Review: Laboratory evaluation revealed an unremarkable urine toxicology and urinalysis with troponin less than 0.012, glucose 108, with chloride 111 with WBC count 3.7. Plan: Neurology and psychiatry consulted Frequent reorientation with visible clock and open windows Resume home medications including Zocor, Protonix, and Norvasc DVT prophylaxis: Lovenox Subq The patient is admitted with an anticipated fewer than 2 midnight stay for evaluation of AMS CODE STATUS: Full Code Discussed with: Patient Anticipated discharge place: Home Past Medical History Past Medical History: Hyperlipidemia, Hypertension Additional Past Medical History / Comment(s): Pt legally blind, History of Any Multi-Drug Resistant Organisms: None Reported Additional Past Surgical History / Comment(s): Colonoscopy, Past Psychological History: Depression Smoking Status: Never smoker Past Alcohol Use History: None Reported Past Drug Use History: None Reported - Past Family History Mother Family Medical History: Unable to Obtain (due to mental status) Medications and Allergies Home Medications Medication Instructions Recorded Confirmed Type Pantoprazole [Protonix] 40 mg PO DAILY #30 tablet. 12/04/19 08/08/24 Rx amLODIPine [Norvasc] 10 mg PO DAILY 01/03/23 08/08/24 History Cholecalciferol (Vitamin D3) 50 mcg PO DAILY 08/08/24 08/08/24 History [Vitamin D3 (50 Mcg = 2000 Iu)] Dorzolamide-Timol 2.23%/0.68% 1 drop BOTH EYES BID 08/08/24 08/08/24 History [Cosopt] Simvastatin [Zocor] 20 mg PO DAILY 08/08/24 08/08/24 History Allergies Allergy/AdvReac Type Severity Reaction Status Date / Time No Known Allergies Allergy Verified 08/08/24 09:34 Physical Exam Vitals: Vital Signs Temp Pulse Resp BP Pulse Ox 08/09/24 01:00 56 L 18 151/91 98 08/09/24 00:00 67 18 176/101 100 08/08/24 21:00 63 18 166/86 96 08/08/24 18:42 66 18 189/79 98 08/08/24 17:34 59 L 18 173/106 99 08/08/24 11:43 60 16 182/106 99 08/08/24 09:29 98.4 F 63 18 154/106 97 Intake and Output 08/08/24 08/08/24 08/09/24 14:59 22:59 06:59 Other: Weight 81.647 kg Results CBC & Chem 7: 08/08/24 09:54 08/08/24 09:54 Labs: Abnormal Lab Results - Last 24 Hours (Table) 08/08/24 08/08/24 08/08/24 Range/Units 09:54 09:54 09:54 WBC 3.7 L (3.8-10.6) k/uL RBC 4.19 L (4.30-5.90) m/uL Chloride 111 H (98-107) mmol/L BUN 8 L (9-20) mg/dL Glucose 108 H (74-99) mg/dL Urine Protein Trace H (Negative)
[2024-08-09 06:59] LABS: Glucose,Whole Blood 81 mg/dL (70-110)
[2024-08-09 07:56] LABS: Glucose,Whole Blood 76 mg/dL (70-110)
[2024-08-09 08:37] LABS: Glucose,Whole Blood 122 mg/dL (70-110)
[2024-08-09] MEDS: CHOLECALCIFEROL 25 MCG (1000 IU) TABLET PO SCH (10:44)
[2024-08-09] MEDS: amLODIPine 10 MG TAB PO SCH (10:45)
[2024-08-09] MEDS: MORPHINE SULFATE 4 MG/ML SYRINGE IV PRN (10:45)
[2024-08-09] MEDS: PANTOPRAZOLE 40 MG TABLET PO SCH (10:45)
[2024-08-09] MEDS: DORZOLAMIDE-TIMOLOL 2.23%/0.68 10ML BTL BOTH EYES SCH (10:46)
[2024-08-09] MEDS: ENOXAPARIN 40 MG/0.4 ML SYRINGE SQ SCH (10:46)
[2024-08-09] MEDS: ATORVASTATIN 10 MG TAB PO SCH (10:46)
--- NOTE | 2024-08-09 14:39 | P.CN ---
Psychiatric Consult - . Consult date: 08/09/24 Consult:: 08/09/24 14:29 IDENTIFYING DATA: This patient is an 83-year-old male with a public guardian REASON FOR REFERRAL: Psychiatry was consulted for altered mental status HISTORY OF PRESENT ILLNESS: The patient presented to the emergency department for altered mental status and hallucinations. Per ED note, "patient states he used to belong to the [employer] and he has been trying to get in contact with him recently. According to the guardian he has been a little altered and more weak than normal. Patient himself denies any headache she denies numbness weakness. Patient denies chest pain difficulty breathing or shortness of tremaine ath. Patient has any recent fever chills or cough or patient denies any abdominal pain patient denies nausea vomiting or diarrhea." Of note, head imaging revealed no acute processes. Patient seen in his room and was A and O x 1 to self only. He was unable to state why he was in the hospital or why he has a public guardian. He states he has been living in [place] alone. Patient was very tangential in conversation however at this time patient denies any suicidal or homical ideations, intent or plan. Patient denies any auditory, visual hallucinations and denies any paranoia or delusions. Attempted to contact patient's guardian Selina for further information last collateral however was unable to reach. Guardian reported that patient is not safe to return home, thus patient will likely be discharged to an assisted living facility. PAST PSYCHIATRIC HISTORY: Patient has a a history of prior inpatient hospitalization at [facility] in 2021 for suicidal thoughts. Patient denies being on any psychiatric medications. Patient denies any psychiatric outpatient follow-up. Patient denies any history of suicide attempts in the past. PAST MEDICAL HISTORY: Dyslipidemia and reportedly dementia. ALLERGIES: as per EMR. CHEMICAL DEPENDENCY HISTORY: as per HPI. FAMILY PSYCHIATRIC/SUBSTANCE USE HISTORY: Denies SOCIAL HISTORY: Patient currently lives alone but has a public guardian MENTAL STATUS EXAM: General Appearance: Patient appears to be stated age is alert, pleasant, very confused. Patient appears to have fair hygiene and grooming wearing hospital gown with fair eye contact. Behavior: Patient is calmly lying in bed without any agitated behavior. Speech: Patient's speech is fluent and nonpressured. Mood/Affect: Patient reports their mood is "ok", affect is constricted Suicidality/Homicidality: Patient denies having any suicidal or homicidal ideation intent or plan. Perceptions: Patient denies any visual hallucinations and denies any auditory hallucinations Though content/process: There is no evidence of any delusional thought content and thought process is tangential. Memory and concentration: AOX1 to self only Judgment and insight: Poor IMPRESSIONS: Major neurocognitive disorder with behavioral disturbance PLAN: -At this time patient DOES NOT meet criteria for inpatient psychiatric admission. -Case management working on placement to an assisted living facility given patient's inability to return home -Communicated plan to patient's nurse -Psychiatry will sign off at this time -Please contact with any questions. 08/09/24 14:31
--- NOTE | 2024-08-09 17:51 | P.PN ---
Subjective Progress Note Date: 08/09/24 Hospital course: Patient is a very pleasant 83-year-old male with a past medical history of hypertension, hyperlipidemia, dementia, and legally blind. He presented to the emergency department with a chief complaint of worsening confusion and reports of paranoid behaviors/hallucinations stating he is in the [employer]. Upon arrival to our facility, patient underwent evaluation in the emergency department. Vital signs upon arrival show blood pressure 154/106, heart rate 63, respiratory rate 18, temp 98.4 F, and SpO2 of 97% on room air. Labs completed and reviewed. CBC showed mild leukopenia with WBC count of 3.7, chronic and at baseline. Coagulation profile normal findings. BMP showing mild hyperchloremia with chloride of 111 otherwise normal findings. Blood glucose 108. Liver profile unremarkable. Troponin negative at less than 0.012. Urinalysis negative for infection. Urine drug screen negative. Patient admitted under our services with consultation to psychiatry and case management. Physical exam: Vital signs reviewed and stable. General: Nontoxic, no distress and appears stated age. Derm: Skin warm and dry, normal coloration for ethnicity. Head: Atraumatic, normocephalic and symmetric. Eyes: no lid lag, and anicteric sclera. Patient legally blind in both eyes Mouth: no lip lesions, mucus membranes moist Cardiovascular: regular rate and rhythm with normal S1S2, no murmur, positive posterior tibial pulses bilaterally, and cap refill < 2 seconds. Lungs: Respirations even, regular, and unlabored on room air. Lungs CTA bilaterally, no rhonchi, no rales, no wheezing, and no accessory muscle usage. Abdominal: soft, nontender to palpation, no guarding, no appreciable organomegaly Ext: ROM intact. No gross muscle atrophy, no edema, no contractures Neuro: Speech clear, face symmetrical and CN II-XII grossly intact with no noted focal neuro deficits Psych: Alert and oriented to person only and confused to place, time, and situation. Assessment and Plan of Care: Acute metabolic encephalopathy, likely delirium in the setting of dementia Hallucinations, secondary to above Provide safe and supportive care and assistance as needed. Fall precautions in place. Psychiatry consulted, appreciate recommendations Will assess magnesium level and TSH with free T4. Case management consulted for placement per public guardian Hypertension Home medications reviewed, patient to resume amlodipine 10 mg daily. Hyperlipidemia Continue simvastatin 20 mg daily. Legally blind in bilateral eyes Continue Cosopt eyedrops 1 drop both eyes twice daily Provide safe and supportive care and assistance as needed. CODE STATUS: Full code DVT prophylaxis: Lovenox Anticipated discharge date: Pending clinical course Anticipated discharge place: Pending clinical course Patient was seen independently by Nurse Pracitioner. This document was prepared using [employer] dictation software. Please allow for errors in debug technician, while rare they do occur. I reviewed the documentation as provided by the GLORY above, who is the original author of this note. I agree with the documented assessment and plan, with the following changes: none Objective - Vital Signs Vital signs: Vital Signs Temp 98.3 F 08/09/24 07:47 Pulse 68 08/09/24 07:47 Resp 16 08/09/24 07:47 BP 166/120 08/09/24 07:47 Pulse Ox 97 08/09/24 07:47 FiO2 Intake & Output 08/08/24 08/09/24 08/09/24 18:59 06:59 18:59 Weight 81.647 kg - Labs CBC & Chem 7: 08/08/24 09:54 08/08/24 09:54 Labs: Abnormal Lab Results - Last 24 Hours (Table) 08/08/24 08/08/24 08/08/24 Range/Units 09:54 09:54 09:54 WBC 3.7 L (3.8-10.6) k/uL RBC 4.19 L (4.30-5.90) m/uL Chloride 111 H (98-107) mmol/L BUN 8 L (9-20) mg/dL Glucose 108 H (74-99) mg/dL POC Glucose (mg/dL) (70-110) mg/dL Urine Protein Trace H (Negative) 08/09/24 Range/Units 08:36 WBC (3.8-10.6) k/uL RBC (4.30-5.90) m/uL Chloride (98-107) mmol/L BUN (9-20) mg/dL Glucose (74-99) mg/dL POC Glucose (mg/dL) 122 H (70-110) mg/dL Urine Protein (Negative)
--- NOTE | 2024-08-10 09:33 | P.CNNES ---
History of Present Illness Consult date: 08/09/24 Requesting physician: Ramirez Early Reason for Consult: AMS History of Present Illness: Patient is a 83-year-old male, who is legally blind, has a residential program manager, came to the hospital by ambulance yesterday at 9:28 AM for altered mental status. Patient was seen in the ER. A sitter was also present at this time. Patient is alert and awake, but speaking in tangential thoughts, with poor thought content. Patient states "little bit negative here, big no-no". "Once you build a mcc, you've got to justify". Patient just rambling, speaking not making sense. Patient however denies any pain anywhere. Patient states that he lives alone and has a residential program manager, who is not a relative, just an employee. He was never , has no children. He has a brother and sister. Patient believes that his blindness resulted from looking on the sun too long. As per EMS flowsheet, when they arrived on the scene, found patient in his apartment with staff around. Staff stated this morning patient was banging on his windows and miller with a broom stick and stated he was in the [employer] and needs special treatment. This was completely abnormal for the patient. Staff advised the patient has been acting like this for the last few days. The patient was taken to the hospital on Monday for this. Staff did not know what the outcome of the hospital visit. Patient is legally blind, cannot ambulate without assistance. Patient has been having bouts of confusion, disorientation and hallucinations and the patient is a danger to himself and others. Patient requires constant monitoring. Patient's vitals at the scene was blood pressure was 182/99, pulse rate 60, respiration 16 saturation 98%. Repeat blood pressure 177/111. Vital signs on arrival blood pressure 154/106, pulse is 63 temperature 98.4. Blood test shows normal CBC with WBC 3.7. CMP is normal, troponin negative. UA negative. Urine drug screen negative. Patient takes vitamin D, Zocor 20 mg, amlodipine 10 mg and Protonix. Review of Systems Some pertinent positives and negatives mentioned in the HPI. Otherwise unremarkable. ROS unobtainable: due to mental status Past Medical History Past Medical History: Hyperlipidemia, Hypertension Additional Past Medical History / Comment(s): Pt legally blind, History of Any Multi-Drug Resistant Organisms: None Reported Additional Past Surgical History / Comment(s): Colonoscopy, Past Psychological History: Depression Smoking Status: Never smoker Past Alcohol Use History: None Reported Past Drug Use History: None Reported - Past Family History Mother Family Medical History: Unable to Obtain (due to mental status) Medications and Allergies Home Medications Medication Instructions Recorded Confirmed Type Pantoprazole [Protonix] 40 mg PO DAILY #30 tablet. 12/04/19 08/08/24 Rx amLODIPine [Norvasc] 10 mg PO DAILY 01/03/23 08/08/24 History Cholecalciferol (Vitamin D3) 50 mcg PO DAILY 08/08/24 08/08/24 History [Vitamin D3 (50 Mcg = 2000 Iu)] Dorzolamide-Timol 2.23%/0.68% 1 drop BOTH EYES BID 08/08/24 08/08/24 History [Cosopt] Simvastatin [Zocor] 20 mg PO DAILY 08/08/24 08/08/24 History Allergies Allergy/AdvReac Type Severity Reaction Status Date / Time No Known Allergies Allergy Verified 08/08/24 09:34 Physical Examination - Vital Signs Vital Signs: Vital Signs Temp Pulse Pulse Resp BP BP Pulse Ox 08/09/24 07:47 98.3 F 68 16 166/120 97 08/09/24 06:45 56 L 16 140/110 98 08/09/24 01:00 56 L 18 151/91 98 08/09/24 00:00 67 18 176/101 100 08/08/24 21:00 63 18 166/86 96 08/08/24 18:42 66 18 189/79 98 08/08/24 17:34 59 L 18 173/106 99 Patient is an elderly Afro-Bhut[place] male, in no acute distress. He is laying comfortably in the bed, appears very pleasant. He is in no pain. Patient is alert awake oriented 2. Patient states is some month of July, and the year is 80. He knows that he is in the hospital but does not know the name of it. He knows that she is in [place] in [place]. He was very quick and answering about the name of the Pres. Mr. Norman. He knows that previously used to be Trump. Speech and language functions are normal. Patient can name and repeat very well. No aphasia or dysarthria. Attention, concentration is intact and fund of knowledge is somewhat limited. On cranial nerve examination, his pupils are unequal. The right pupil is about 3 mm, reacting to 2 mm. The left pupil is somewhat oval, nonreactive. He has partial corneal opacity on the left. Patient has baseline left exotropia. Patient is legally blind, can see the shining light only. Face is symmetric, tongue protrudes to the midline. Palatal elevation and sensation normal, hearing and shoulder shrug normal, facial sensation normal. On muscle strength testing, there is no pronator drift. The strength is normal in arms and legs distally and proximally, except left shoulder, which is hurting. Deep tendon reflexes are sym2 at the biceps, 2 brachioradialis, 2 at the knees and ankles and plantars downgoing bilaterally.Sensory to touch is equal with no neglect on double simultaneous stimulation. Cerebellar function showed no ataxia for [id number] testing. No dysdiadochokinesia. Tone and bulk of muscles normal. Gait deferred.. On general examination, there is no carotid bruit or murmur, S1-S2 audible. Chest is clear on consultation. Abdomen is soft nontender. No organomegaly, bowel sounds present. Peripheral pulses are present. No peripheral edema. Results - Laboratory Findings CBC and BMP: 08/08/24 09:54 08/08/24 09:54 Abnormal Lab Findings: Abnormal Labs 08/08/24 08/08/24 08/08/24 09:54 09:54 09:54 WBC 3.7 L RBC 4.19 L Chloride 111 H BUN 8 L Glucose 108 H POC Glucose (mg/dL) Urine Protein Trace H 08/09/24 08:36 WBC RBC Chloride BUN Glucose POC Glucose (mg/dL) 122 H Urine Protein Assessment and Plan Assessment: * Altered mental status, likely due to acute delirium. Exact cause is uncer tain. * Possible underlying cognitive impairment. * Rule out underlying psychiatric disorder/psychosis. * Hypertension * Hyperlipidemia * Legal blindness Plan: * Psychiatrist is also on board. * Check B12, folate, RPR, TSH. * Patient had an MRI of the brain on 01/05/2023, which revealed mild to moderate diffuse cerebral atrophy with atrophy greatest over the bilateral frontal and temporal. There is moderate chronic small vessel ischemic change. * Patient probably may have underlying dementia as well. Recommend patient follow up with neurologist outpatient for detailed cognitive function testing. * Patient had a carotid Doppler on 01/04/2033 which revealed less than 50% stenosis bilateral carotid bifurcation with antegrade flow in both vertebral arteries. No need to repeat. * 2-D echo from 01/04/2023 also revealed LVEF 55-60%, grade 1 diastolic dysfunction with no other abnormalities. No need to repeat. * Neurology will follow clinically. Thank you for the consult.
[2024-08-10 10:12] LABS: Blood Urea Nitrogen 9.1 mg/dL (9.0-27.0); Calcium 9.3 mg/dL (8.7-10.3); Carbon Dioxide 24.4 mmol/L (21.6-31.8); Chloride 106 mmol/L (96-109); Glucose 97 mg/dL (70-110); HCT 39.4 % (39.6-50.0); HGB 13.1 g/dL (13.0-17.0); MCHC 33.2 g/dL (32.0-37.0); MCV 96.3 FL (80.0-97.0); Mean Platelet Volume 12.5 FL (9.5-12.2); NRBC Per 100 WBC 0 X 10*3/uL (0.00-0.01); Platelet Count 137 X 10*3/uL (140-440); Potassium 3.4 mmol/L (3.5-5.5); RBC 4.09 X 10*6/uL (4.40-5.60); RDW 13.2 % (11.5-14.5); Sodium 144 mmol/L (135-145)
--- NOTE | 2024-08-10 16:29 | P.PN ---
Subjective Progress Note Date: 08/10/24 Hospital course: Patient is a very pleasant 83-year-old male with a past medical history of hypertension, hyperlipidemia, dementia, and legally blind. He presented to the emergency department with a chief complaint of worsening confusion and reports of paranoid behaviors/hallucinations stating he is in the [employer]. Upon arrival to our facility, patient underwent evaluation in the emergency department. Vital signs upon arrival show blood pressure 154/106, heart rate 63, respiratory rate 18, temp 98.4 F, and SpO2 of 97% on room air. Labs completed and reviewed. CBC showed mild leukopenia with WBC count of 3.7, chronic and at baseline. Coagulation profile normal findings. BMP showing mild hyperchloremia with chloride of 111 otherwise normal findings. Blood glucose 108. Liver profile unremarkable. Troponin negative at less than 0.012. Uri nalysis negative for infection. Urine drug screen negative. Patient admitted under our services with consultation to psychiatry and case management. Physical exam: Vital signs reviewed and stable. General: Nontoxic, no distress and appears stated age. Derm: Skin warm and dry, normal coloration for ethnicity. Head: Atraumatic, normocephalic and symmetric. Eyes: no lid lag, and anicteric sclera. Patient legally blind in both eyes Mouth: no lip lesions, mucus membranes moist Cardiovascular: regular rate and rhythm with normal S1S2, no murmur, positive posterior tibial pulses bilaterally, and cap refill < 2 seconds. Lungs: Respirations even, regular, and unlabored on room air. Lungs CTA bilaterally, no rhonchi, no rales, no wheezing, and no accessory muscle usage. Abdominal: soft, nontender to palpation, no guarding, no appreciable organo megaly Ext: ROM intact. No gross muscle atrophy, no edema, no contractures Neuro: Speech clear, face symmetrical and CN II-XII grossly intact with no noted focal neuro deficits Psych: Alert and oriented to person only and confused to place, time, and situation. Assessment and Plan of Care: Acute metabolic encephalopathy, likely delirium in the setting of dementia Hallucinations, secondary to above Provide safe and supportive care and assistance as needed. Fall precautions in place. Psychiatry evaluated stating patient does not meet criteria for inpatient psychiatric admission recommending placement to an assisted living facility given patient's inability to return home and cleared patient from psychiatry perspective. TSH was normal findings at 2.590. Case management consulted for placement per public guardian Hypokalemia Potassium 3.3 orders placed for K-Dur 40 mEq p.o. x 1 dose. Hypertension Home medications reviewed, patient to resume amlodipine 10 mg daily. Hyperlipidemia Continue simvastatin 20 mg daily. Legally blind in bilateral eyes Continue Cosopt eyedrops 1 drop both eyes twice daily Provide safe and supportive care and assistance as needed. Data reviewed: Morning labs completed and reviewed. CBC showing thrombocytopenia with platelet count of 137. BMP showing hypokalemia with potassium of 3.4 and elevated anion gap of 13.60. Magnesium normal findings at 2.0. TSH 2.590 and folate was 13.70. Vital signs reviewed and stable. Blood pressure 159/88, heart rate 72, respiratory rate 16, temp 98.8 F, and SpO2 of 99% on room air. CODE STATUS: Full code DVT prophylaxis: Lovenox Anticipated discharge date: Awaiting placement Anticipated discharge place: Case management/social work working on placement per public guardian Patient was seen independently by Nurse Pracitioner. This document was prepared using [employer] dictation software. Please allow for errors in process stripper, while rare they do occur. I reviewed the documentation as provided by the GLORY above, who is the original author of this note. I agree with the documented assessment and plan, with the following changes: none Objective - Vital Signs Vital signs: Vital Signs Temp 98.8 F 08/10/24 07:37 Pulse 72 08/10/24 07:37 Resp 16 08/10/24 07:37 BP 159/88 08/10/24 07:37 Pulse Ox 99 08/10/24 07:37 FiO2 Intake & Output 08/09/24 08/10/24 08/10/24 18:59 06:59 18:59 Intake Total 615 Output Total 500 Balance 615 -500 Weight 81.647 kg Intake: Intake, IV Titration 75 Amount Sodium Chloride 0.9% 1, 75 000 ml @ 75 mls/hr IV . [id number] [facility] Rx#:[id number] Oral 540 Output: Urine 500 Other: Voiding Method Toilet Toilet Urinal # Voids 1 - Labs CBC & Chem 7: 08/10/24 03:02 08/10/24 03:02 Labs: Abnormal Lab Results - Last 24 Hours (Table) 08/09/24 Range/Units 08:36 POC Glucose (mg/dL) 122 H (70-110) mg/dL
[2024-08-10] MEDS: POTASSIUM CHLORIDE ER 20 MEQ TAB.ER PO STA (17:04)
[2024-08-11 12:55] LABS: Basophils % (A) 0 %; Eosinophils # (A) 0.2 k/uL (0-0.7); Eosinophils % (A) 6 %; HCT 38.1 % (39.0-53.0); HGB 12.7 gm/dL (13.0-17.5); Lymphocytes # (A) 1.5 k/uL (1.0-4.8); Lymphocytes % (A) 38 %; MCH 32.3 pg (25.0-35.0); MCHC 33.3 g/dL (31.0-37.0); MCV 97.1 fL (80.0-100.0); Mean Platelet Volume 8.9; Monocytes # (A) 0.2 k/uL (0-1.0); Monocytes % (A) 5 %; Neutrophils % (A) 49 %; Platelet Count 140 k/uL (150-450); RBC 3.93 m/uL (4.30-5.90); RDW 13.7 % (11.5-15.5)
[2024-08-11 13:06] LABS: African American GFR (CKD) >90 (>60 ml/min/1.73 sqM); Anion Gap 6 mmol/L; Blood Urea Nitrogen 17 mg/dL (9-20); Calcium 9.1 mg/dL (8.4-10.2); Carbon Dioxide 25 mmol/L (22-30); Chloride 111 mmol/L (98-107); Glucose 120 mg/dL (74-99); Non-African American GFR(CKD) 83 (>60 ml/min/1.73 sqM); Potassium 3.9 mmol/L (3.5-5.1); Sodium 142 mmol/L (137-145)
--- NOTE | 2024-08-11 18:23 | P.PN ---
Subjective Progress Note Date: 08/11/24 Hospital course: Patient is a very pleasant 83-year-old male with a past medical history of hypertension, hyperlipidemia, dementia, and legally blind. He presented to the emergency department with a chief complaint of worsening confusion and reports of paranoid behaviors/hallucinations stating he is in the secret service. Upon arrival to our facility, patient underwent evaluation in the emergency department. Vital signs upon arrival show blood pressure 154/106, heart rate 63, respiratory rate 18, temp 98.4 F, and SpO2 of 97% on room air. Labs completed and reviewed. CBC showed mild leukopenia with WBC count of 3.7, chronic and at baseline. Coagulation profile normal findings. BMP showing mild hyperchloremia with chloride of 111 otherwise normal findings. Blood glucose 108. Liver profile unremarkable. Troponin negative at less than 0.012. Uri nalysis negative for infection. Urine drug screen negative. Patient admitted under our services with consultation to psychiatry and case management. Physical exam: Patient seen and fully evaluated at bedside, sitter is at bedside secondary to continued delirium. Patient denies having any pain or complaints at this time. He is pleasant and cooperative. He remains alert to self only. Vital signs reviewed and stable. General: Nontoxic, no distress and appears stated age. Derm: Skin warm and dry, normal coloration for ethnicity. Head: Atraumatic, normocephalic and symmetric. Eyes: no lid lag, and anicteric sclera. Patient legally blind in both eyes Mouth: no lip lesions, mucus membranes moist Cardiovascular: regular rate and rhythm with normal S1S2, no murmur, positive posterior tibial pulses bilaterally, and cap refill < 2 seconds. Lungs: Respirations even, regular, and unlabored on room air. Lungs CTA bilaterally, no rhonchi, no rales, no wheezing, and no accessory muscle usage. Abdominal: soft, nontender to palpation, no guarding, no appreciable organomegaly Ext: ROM intact. No gross muscle atrophy, no edema, no contractures Neuro: Speech clear, face symmetrical and CN II-XII grossly intact with no noted focal neuro deficits Psych: Alert and oriented to person only and confused to place, time, and situation. Assessment and Plan of Care: Acute metabolic encephalopathy, likely delirium in the setting of dementia Hallucinations, secondary to above Provide safe and supportive care and assistance as needed. Fall precautions in place. Psychiatry evaluated stating patient does not meet criteria for inpatient psychiatric admission recommending placement to an assisted living facility given patient's inability to return home and cleared patient from psychiatry perspective. Neurology following, reviewed documentation in chart. TSH was normal findings at 2.590. Case management consulted for placement per public guardian Hypokalemia Potassium 3.3 orders placed for K-Dur 40 mEq p.o. x 1 dose. Hypertension Home medications reviewed, patient to resume amlodipine 10 mg daily. Hyperlipidemia Continue simvastatin 20 mg daily. Legally blind in bilateral eyes Continue Cosopt eyedrops 1 drop both eyes twice daily Provide safe and supportive care and assistance as needed. Data reviewed: Morning labs completed and reviewed. CBC showing thrombocytopenia with platelet count of 140. BMP showing slightly elevated chloride of 111 otherwise normal findings. Hypokalemia resolved with repeat potassium of 3.9. Blood glucose 120. Vitamin B12 610, folate 13.70, and TSH of 2.590. Treponema Ab nonreactive. Vital signs reviewed and stable. Blood pressure 127/80, heart rate 60, respiratory rate 18, temp 97.5 F, and SpO2 of 90% on room air. CODE STATUS: Full code DVT prophylaxis: Lovenox Anticipated discharge date: Awaiting placement Anticipated discharge place: Case management/social work working on placement per public guardian Patient was seen independently by Nurse Pracitioner. This document was prepared using [employer] dictation software. Please allow for errors in orthopedic physical therapist, while rare they do occur. I reviewed the documentation as provided by the GLORY above, who is the original author of this note. I agree with the documented assessment and plan, with the following changes: none Objective - Vital Signs Vital signs: Vital Signs Temp 97.5 F L 08/11/24 07:57 Pulse 60 08/11/24 07:57 Resp 18 08/11/24 07:57 BP 127/80 08/11/24 07:57 Pulse Ox 98 08/11/24 07:57 FiO2 Intake & Output 08/10/24 08/11/24 08/11/24 18:59 06:59 18:59 Intake Total 720 Output Total 650 100 Balance 70 -100 Intake: Oral 720 Output: Urine 650 100 Other: Voiding Method Toilet Urinal - Labs CBC & Chem 7: 08/11/24 12:40 08/11/24 12:40 Labs: Abnormal Lab Results - Last 24 Hours (Table) 08/10/24 08/10/24 Range/Units 03:02 03:02 RBC 4.09 L (4.40-5.60) X 10*6/uL Hct 39.4 L (39.6-50.0) % Plt Count 137 L (140-440) X 10*3/uL MPV 12.5 H (9.5-12.2) FL Potassium 3.4 L (3.5-5.5) mmol/L Anion Gap 13.60 H (4.00-12.00) mmol/L
--- NOTE | 2024-08-12 01:49 | P.PN ---
Subjective Progress Note Date: 08/11/24 Patient was seen for a follow-up. Patient is laying comfortably in the bed. A sitter was also present by the bedside. She mentions that patient make sense for most part. However he is slightly confused, as he believes the sitter is Swati, her friend. Patient offers no complaints. No headaches or dizziness. Objective - Vital Signs Vital signs: Vital Signs Temp 98.0 F 08/11/24 19:09 Pulse 72 08/11/24 19:09 Resp 18 08/11/24 19:09 BP 152/80 08/11/24 19:09 Pulse Ox 99 08/11/24 19:09 FiO2 Intake & Output 08/11/24 08/11/24 08/12/24 06:59 18:59 06:59 Intake Total 1320 Output Total 100 Balance -100 1320 Intake: Oral 1320 Output: Urine 100 Other: Voiding Method Toilet Urinal # Voids 4 # Bowel Movements 1 - Exam Patient is laying comfortably in the bed. Patient is alert and awake. He knows it is August but could not tell the year. He knows that he is in the Hospital in [facility]. He knows name of the current president Mr. Norman. He believes that he lives in "[facility]" apartment in [facility]. He believes that the sitter present by bedside is his friend Renetta. Patient is very pleasant. He is legally blind. - Labs CBC & Chem 7: 08/11/24 12:40 08/11/24 12:40 Labs: Abnormal Lab Results - Last 24 Hours (Table) 08/11/24 08/11/24 Range/Units 12:40 12:40 RBC 3.93 L (4.30-5.90) m/uL Hgb 12.7 L (13.0-17.5) gm/dL Hct 38.1 L (39.0-53.0) % Plt Count 140 L (150-450) k/uL Chloride 111 H (98-107) mmol/L Glucose 120 H (74-99) mg/dL Assessment and Plan Assessment: * Altered mental status, likely due to acute delirium. Exact cause is uncertain. * Possible underlying cognitive impairment. * Rule out underlying psychiatric disorder/psychosis. * Hypertension * Hyperlipidemia * Legal blindness Plan: * Psychiatrist is also on board. * B12 610, folate 13.7, TSH 2.59, RPR negative, all tests normal. * Patient had an MRI of the brain on 01/05/2023, which revealed mild to moderate diffuse cerebral atrophy with atrophy greatest over the bilateral frontal and temporal. There is moderate chronic small vessel ischemic change. * Patient probably may have underlying dementia as well. Recommend patient follow up with neurologist outpatient for detailed cognitive function testing. * Patient had a carotid Doppler on 01/04/2033 which revealed less than 50% stenosis bilateral carotid bifurcation with antegrade flow in both vertebral arteries. No need to repeat. * 2-D echo from 01/04/2023 also revealed LVEF 55-60%, grade 1 diastolic dysfunction with no other abnormalities. No need to repeat. * Continue Lipitor 10 mg. * Neurologically, no other workup indicated. Patient is clear for transfer to rehab facility for placement. * Dr. Tc Ho will be starting neurology service from the morning. Please reconsult neurology, if there are any neurological concerns.
--- NOTE | 2024-08-12 16:22 | P.PN ---
Subjective Progress Note Date: 08/12/24 Hospital course: Patient is a very pleasant 83-year-old male with a past medical history of hypertension, hyperlipidemia, dementia, and legally blind. He presented to the emergency department with a chief complaint of worsening confusion and reports of paranoid behaviors/hallucinations stating he is in the secret service. Upon arrival to our facility, patient underwent evaluation in the emergency department. Vital signs upon arrival show blood pressure 154/106, heart rate 63, respiratory rate 18, temp 98.4 F, and SpO2 of 97% on room air. Labs completed and reviewed. CBC showed mild leukopenia with WBC count of 3.7, chronic and at baseline. Coagulation profile normal findings. BMP showing mild hyperchloremia with chloride of 111 otherwise normal findings. Blood glucose 108. Liver profile unremarkable. Troponin negative at less than 0.012. Uri nalysis negative for infection. Urine drug screen negative. Patient admitted under our services with consultation to psychiatry and case management. Physical exam: Patient seen and fully evaluated at bedside, sitter is at bedside secondary to continued delirium. Patient denies having any pain or complaints at this time. He is pleasant and cooperative and remains alert to self only. Vital signs reviewed and stable. General: Nontoxic, no distress and appears stated age. Derm: Skin warm and dry, normal coloration for ethnicity. Head: Atraumatic, normocephalic and symmetric. Eyes: no lid lag, and anicteric sclera. Patient legally blind in both eyes Mouth: no lip lesions, mucus membranes moist Cardiovascular: regular rate and rhythm with normal S1S2, no murmur, positive posterior tibial pulses bilaterally, and cap refill < 2 seconds. Lungs: Respirations even, regular, and unlabored on room air. Lungs CTA bilaterally, no rhonchi, no rales, no wheezing, and no accessory muscle usage. Abdominal: soft, nontender to palpation, no guarding, no appreciable organomegaly Ext: ROM intact. No gross muscle atrophy, no edema, no contractures Neuro: Speech clear, face symmetrical and CN II-XII grossly intact with no noted focal neuro deficits Psych: Alert and oriented to person only and confused to place, time, and situation. Assessment and Plan of Care: Acute metabolic encephalopathy, likely delirium in the setting of dementia Hallucinations, secondary to above Provide safe and supportive care and assistance as needed. Fall precautions in place. Psychiatry evaluated stating patient does not meet criteria for inpatient psychiatric admission recommending placement to an assisted living facility given patient's inability to return home and cleared patient from psychiatry perspective. Neurology following, reviewed documentation in chart. TSH was normal findings at 2.590. Case management consulted for placement per public guardian. Case management/social work, awaiting to discuss further with guardian and will notify once facility has been obtained for safe discharge. Hypertension Home medications reviewed, patient to resume amlodipine 10 mg daily. Hyperlipidemia Continue simvastatin 20 mg daily. Legally blind in bilateral eyes Continue Cosopt eyedrops 1 drop both eyes twice daily Provide safe and supportive care and assistance as needed. Hypokalemia Resolved. Potassium 3.9. Data reviewed: Labs reviewed. CBC showing mild thrombocytopenia with platelet count increasing to 140 and stable normocytic anemia with hemoglobin of 12.7. BMP unremarkable with exception of mildly elevated chloride of 111. Blood glucose 120. Syphilis treponema nonreactive. Vital signs reviewed and stable. Blood pressure 128/74, heart rate 62, respiratory rate 16, temp 97.4 F, and SpO2 of 98% on room air. CODE STATUS: Full code DVT prophylaxis: Lovenox Anticipated discharge date: Awaiting placement Anticipated discharge place: Case management/social work working on placement per public guardian Patient was seen independently by Nurse Pracitioner. This document was prepared using [employer] dictation software. Please allow for errors in catheter builder, while rare they do occur. I reviewed the documentation as provided by the GLORY above, who is the original author of this note. I agree with the documented assessment and plan, with the following changes: none Objective - Vital Signs Vital signs: Vital Signs Temp 97.4 F L 08/12/24 07:19 Pulse 62 08/12/24 07:19 Resp 16 08/12/24 07:19 BP 128/74 08/12/24 07:19 Pulse Ox 98 08/12/24 07:19 FiO2 Intake & Output 08/11/24 08/12/24 08/12/24 18:59 06:59 18:59 Intake Total 1320 Balance 1320 Intake: Oral 1320 Other: Voiding Method Toilet Urinal Urinal # Voids 4 1 # Bowel Movements 1 - Labs CBC & Chem 7: 08/11/24 12:40 08/11/24 12:40 Labs: Abnormal Lab Results - Last 24 Hours (Table) 08/11/24 08/11/24 Range/Units 12:40 12:40 RBC 3.93 L (4.30-5.90) m/uL Hgb 12.7 L (13.0-17.5) gm/dL Hct 38.1 L (39.0-53.0) % Plt Count 140 L (150-450) k/uL Chloride 111 H (98-107) mmol/L Glucose 120 H (74-99) mg/dL
--- NOTE | 2024-08-13 10:04 | P.PN ---
Subjective Progress Note Date: 08/13/24 Hospital course: Patient is a very pleasant 83-year-old male with a past medical history of hypertension, hyperlipidemia, dementia, and legally blind. He presented to the emergency department with a chief complaint of worsening confusion and reports of paranoid behaviors/hallucinations stating he is in the secret service. Upon arrival to our facility, patient underwent evaluation in the emergency department. Vital signs upon arrival show blood pressure 154/106, heart rate 63, respiratory rate 18, temp 98.4 F, and SpO2 of 97% on room air. Labs completed and reviewed. CBC showed mild leukopenia with WBC count of 3.7, chronic and at baseline. Coagulation profile normal findings. BMP showing mild hyperchloremia with chloride of 111 otherwise normal findings. Blood glucose 108. Liver profile unremarkable. Troponin negative at less than 0.012. Ur inalysis negative for infection. Urine drug screen negative. Patient admitted under our services with consultation to psychiatry and case management. Physical exam: Patient seen and fully evaluated at bedside, sitter is at bedside secondary to continued delirium. Patient denies having any pain or complaints at this time. He is pleasant and cooperative and remains alert to self only. Vital signs reviewed and stable. General: Nontoxic, no distress and appears stated age. Derm: Skin warm and dry, normal coloration for ethnicity. Head: Atraumatic, normocephalic and symmetric. Eyes: no lid lag, and anicteric sclera. Patient legally blind in both eyes Mouth: no lip lesions, mucus membranes moist Cardiovascular: regular rate and rhythm with normal S1S2, no murmur, positive posterior tibial pulses bilaterally, and cap refill < 2 seconds. Lungs: Respirations even, regular, and unlabored on room air. Lungs CTA bilatera lly, no rhonchi, no rales, no wheezing, and no accessory muscle usage. Abdominal: soft, nontender to palpation, no guarding, no appreciable organomegaly Ext: ROM intact. No gross muscle atrophy, no edema, no contractures Neuro: Speech clear, face symmetrical and CN II-XII grossly intact with no noted focal neuro deficits Psych: Alert and oriented to person only and confused to place, time, and si tuation. Assessment and Plan of Care: Acute metabolic encephalopathy, likely delirium in the setting of dementia Hallucinations, secondary to above Provide safe and supportive care and assistance as needed. Fall precautions in place. Psychiatry evaluated stating patient does not meet criteria for inpatient psychiatric admission recommending placement to an assisted living facility given patient's inability to return home and cleared patient from psychiatry perspective. Neurology following, reviewed documentation in chart. TSH was normal findings at 2.590. Case management consulted for placement per public guardian. Case management/social work, awaiting to discuss further with guardian and will notify once facility has been obtained for safe discharge. Hypertension Home medications reviewed, patient to resume amlodipine 10 mg daily. Hyperlipidemia Continue simvastatin 20 mg daily. Legally blind in bilateral eyes Continue Cosopt eyedrops 1 drop both eyes twice daily Provide safe and supportive care and assistance as needed. Hypokalemia Resolved. Potassium 3.9. Data reviewed: Vital signs reviewed. Blood pressure 144/89, heart rate 66, respiratory rate 17, temp 97.3 F, and SpO2 of 99% on room air. CODE STATUS: Full code DVT prophylaxis: Lovenox Anticipated discharge date: Awaiting placement Anticipated discharge place: Case management/social work working on placement per public guardian Patient was seen independently by Nurse Pracitioner. This document was prepared using [employer] dictation software. Please allow for errors in enterprise mobility architect, while rare they do occur. I reviewed the documentation as provided by the GLORY above, who is the original author of this note. I agree with the documented assessment and plan, with the following changes: none Objective - Vital Signs Vital signs: Vital Signs Temp 97.3 F L 08/13/24 08:04 Pulse 66 08/13/24 08:04 Resp 17 08/13/24 08:04 BP 144/89 08/13/24 08:04 Pulse Ox 99 08/13/24 08:04 FiO2 Intake & Output 08/12/24 08/13/24 08/13/24 18:59 06:59 18:59 Intake Total 2039 Balance 2039 Intake: Oral 2039 Other: Voiding Method Urinal Toilet Urinal Diaper # Voids 2 - Labs CBC & Chem 7: 08/11/24 12:40 08/11/24 12:40
--- NOTE | 2024-08-14 14:20 | P.PN ---
Subjective Progress Note Date: 08/14/24 Hospital course: Patient is a very pleasant 83-year-old male with a past medical history of hypertension, hyperlipidemia, dementia, and legally blind. He presented to the emergency department with a chief complaint of worsening confusion and reports of paranoid behaviors/hallucinations stating he is in the secret service. Upon arrival to our facility, patient underwent evaluation in the emergency department. Vital signs upon arrival show blood pressure 154/106, heart rate 63, respiratory rate 18, temp 98.4 F, and SpO2 of 97% on room air. Labs completed and reviewed. CBC showed mild leukopenia with WBC count of 3.7, chronic and at baseline. Coagulation profile normal findings. BMP showing mild hyperchloremia with chloride of 111 otherwise normal findings. Blood glucose 108. Liver profile unremarkable. Troponin negative at less than 0.012. Ur inalysis negative for infection. Urine drug screen negative. Patient admitted under our services with consultation to psychiatry and case management. Physical exam: Patient seen and fully evaluated at bedside, sitter is at bedside secondary to continued delirium. Patient denies having any pain or complaints at this time. He is pleasant and cooperative and remains alert to self only. Vital signs reviewed and stable. General: Nontoxic, no distress and appears stated age. Derm: Skin warm and dry, normal coloration for ethnicity. Head: Atraumatic, normocephalic and symmetric. Eyes: no lid lag, and anicteric sclera. Patient legally blind in both eyes Mouth: no lip lesions, mucus membranes moist Cardiovascular: regular rate and rhythm with normal S1S2, no murmur, positive posterior tibial pulses bilaterally, and cap refill < 2 seconds. Lungs: Respirations even, regular, and unlabored on room air. Lungs CTA bilatera lly, no rhonchi, no rales, no wheezing, and no accessory muscle usage. Abdominal: soft, nontender to palpation, no guarding, no appreciable organomegaly Ext: ROM intact. No gross muscle atrophy, no edema, no contractures Neuro: Speech clear, face symmetrical and CN II-XII grossly intact with no noted focal neuro deficits Psych: Alert and oriented to person only and confused to place, time, and si tuation. Assessment and Plan of Care: Acute metabolic encephalopathy, likely delirium in the setting of dementia Hallucinations, secondary to above Provide safe and supportive care and assistance as needed. Fall precautions in place. Psychiatry evaluated stating patient does not meet criteria for inpatient psychiatric admission recommending placement to an assisted living facility given patient's inability to return home and cleared patient from psychiatry perspective. Neurology following, reviewed documentation in chart. TSH was normal findings at 2.590. Case management consulted for placement per public guardian. Case management/social work, awaiting to discuss further with guardian and will notify once facility has been obtained for safe discharge. Hypertension Home medications reviewed, patient to resume amlodipine 10 mg daily. Hyperlipidemia Continue simvastatin 20 mg daily. Legally blind in bilateral eyes Continue Cosopt eyedrops 1 drop both eyes twice daily Provide safe and supportive care and assistance as needed. Hypokalemia Resolved. Potassium 3.9. Data reviewed: Vital signs reviewed. Blood pressure 144/89, heart rate 66, respiratory rate 17, temp 97.3 F, and SpO2 of 99% on room air. CODE STATUS: Full code DVT prophylaxis: Lovenox Anticipated discharge date: Awaiting placement, discussed with case management/social work patient has been accepted to 2 different facilities and will have insurance authorization on 08/15/2024. [address]tic[address] discharge place: Case management/social work working on placement per public guardian Patient was seen independently by Nurse Pracitioner. This document was prepared using [employer] dictation software. Please allow for errors in pin game machine inspector, while rare they do occur. Patient was seen independently by Ihsan Hernandez NP. I agree with the assessment and plan as above. Objective - Vital Signs Vital signs: Vital Signs Temp 98.0 F 08/14/24 07:37 Pulse 57 L 08/14/24 07:37 Resp 16 08/14/24 07:37 BP 156/65 08/14/24 07:37 Pulse Ox 97 08/14/24 07:37 FiO2 Intake & Output 08/13/24 08/14/24 08/14/24 18:59 06:59 18:59 Intake Total 1080 Balance 1080 Intake: Oral 1080 Other: Voiding Method Toilet Toilet Diaper Diaper # Voids 3 2 # Bowel Movements 1 - Labs CBC & Chem 7: 08/11/24 12:40 08/11/24 12:40
--- NOTE | 2024-08-15 17:37 | P.PN ---
Subjective Progress Note Date: 08/15/24 Hospital course: Patient is a very pleasant 83-year-old male with a past medical history of hypertension, hyperlipidemia, dementia, and legally blind. He presented to the emergency department with a chief complaint of worsening confusion and reports of paranoid behaviors/hallucinations stating he is in the [employer] service. Upon arrival to our facility, patient underwent evaluation in the emergency department. Vital signs upon arrival show blood pressure 154/106, heart rate 63, respiratory rate 18, temp 98.4 F, and SpO2 of 97% on room air. Labs completed and reviewed. CBC showed mild leukopenia with WBC count of 3.7, chronic and at baseline. Coagulation profile normal findings. BMP showing mild hyperchloremia with chloride of 111 otherwise normal findings. Blood glucose 108. Liver profile unremarkable. Troponin negative at less than 0.012. Ur inalysis negative for infection. Urine drug screen negative. Patient admitted under our services with consultation to psychiatry and case management. Physical exam: Patient seen and fully evaluated at bedside, sitter is at bedside secondary to continued delirium. Patient denies having any pain or complaints at this time. He is pleasant and cooperative and remains alert to self only. Vital signs reviewed and stable. General: Nontoxic, no distress and appears stated age. Derm: Skin warm and dry, normal coloration for ethnicity. Head: Atraumatic, normocephalic and symmetric. Eyes: no lid lag, and anicteric sclera. Patient legally blind in both eyes Mouth: no lip lesions, mucus membranes moist Cardiovascular: regular rate and rhythm with normal S1S2, no murmur, positive posterior tibial pulses bilaterally, and cap refill < 2 seconds. Lungs: Respirations even, regular, and unlabored on room air. Lungs CTA bilatera lly, no rhonchi, no rales, no wheezing, and no accessory muscle usage. Abdominal: soft, nontender to palpation, no guarding, no appreciable organomegaly Ext: ROM intact. No gross muscle atrophy, no edema, no contractures Neuro: Speech clear, face symmetrical and CN II-XII grossly intact with no noted focal neuro deficits Psych: Alert and oriented to person only and confused to place, time, and si tuation. Assessment and Plan of Care: Acute metabolic encephalopathy, likely delirium in the setting of dementia Hallucinations, secondary to above Provide safe and supportive care and assistance as needed. Fall precautions in place. Psychiatry evaluated stating patient does not meet criteria for inpatient psychiatric admission recommending placement to an assisted living facility given patient's inability to return home and cleared patient from psychiatry perspective. Neurology following, reviewed documentation in chart. TSH was normal findings at 2.590. Case management consulted for placement per public guardian. Case management/social work, awaiting to discuss further with guardian and will notify once facility has been obtained for safe discharge. Hypertension Home medications reviewed, patient to resume amlodipine 10 mg daily. Hyperlipidemia Continue simvastatin 20 mg daily. Legally blind in bilateral eyes Continue Cosopt eyedrops 1 drop both eyes twice daily Provide safe and supportive care and assistance as needed. Hypokalemia Resolved. Potassium 3.9. Data reviewed: Vital signs reviewed. Blood pressure 132/75, heart rate 60, respiratory rate 16, temp 98F, and SpO2 of 98% on room air. CODE STATUS: Full code DVT prophylaxis: Lovenox Anticipated discharge date: Awaiting placement, discussed with case management/social work patient has been accepted to 2 different facilities and will have insurance authorization on 08/15/2024. Anticipated discharge place: SNF Patient was seen independently by Nurse Pracitioner. This document was prepared using [employer] dictation software. Please allow for errors in hand drawer in helper, while rare they do occur. Patient was seen independently by Ihsan Hernandez NP. I agree with the assessment and plan as above. Objective - Vital Signs Vital signs: Vital Signs Temp 98 F 08/15/24 07:19 Pulse 60 08/15/24 07:19 Resp 16 08/15/24 07:19 BP 132/75 08/15/24 07:19 Pulse Ox 98 08/15/24 07:19 FiO2 Intake & Output 08/14/24 08/15/24 08/15/24 18:59 06:59 18:59 Intake Total 540 590 Balance 540 590 Intake: Oral 540 590 Other: Voiding Method Toilet Toilet Diaper Diaper # Voids 1 # Bowel Movements 2 - Labs CBC & Chem 7: 08/11/24 12:40 08/11/24 12:40
--- NOTE | 2024-08-16 12:05 | P.DS ---
Providers Date of admission: 08/12/24 10:24 Expected date of discharge: 08/16/24 Attending physician: Rohan Qiu MD Consults: 08/08/24 20:45 Consult Physician Routine Consulting Provider: Elijah Resendez Consult Reason/Comments: ams Do you want consulting provider notified?: Yes Consult Physician Routine Consulting Provider: Alexia Fox Consult Reason/Comments: ams Do you want consulting provider notified?: Yes Primary care physician: Stated None Hospital Course: 83-year-old male with a PMH of hypertension, hyperlipidemia, dementia, and legally blind. He presented to the emergency department with a chief complaint of worsening confusion and reports of paranoid behaviors/hallucinations stating he is in the [employer] service. Upon arrival to our facility, patient underwent evaluation in the emergency department. Vital signs upon arrival show blood pressure 154/106, heart rate 63, respiratory rate 18, temp 98.4 F, and SpO2 of 97% on room air. Labs completed and reviewed. CBC showed mild leukopenia with WBC count of 3.7, chronic and at baseline. Coagulation profile normal findings. BMP showing mild hyperchloremia with chloride of 111 otherwise normal findings. Blood glucose 108. Liver profile unremarkable. Troponin negative at less than 0.012. Urinalysis negative for infection. Urine drug screen negative. Patient admitted under our services with consultation to psychiatry and case management. Psychiatry evaluated, does not meet inpatient criteria, recommending placement to an assisted living facility given patient's inability to return home. N eurology consulted,B12 [id number], folate 13.7, TSH 2.59, RPR negative. MRI of the brain on 01/05/2023, which revealed mild to moderate diffuse cerebral atrophy with atrophy greatest over the bilateral frontal and temporal, moderate chronic small vessel ischemic change. Carotid Doppler on 01/04/2033 which revealed less than 50% stenosis bilateral carotid bifurcation. 2-D echo from 01/04/2023 also revealed LVEF 55-60%, grade 1 diastolic dysfunction. No other workup recommended by Neurology. Delirium precautions were put in place. Case management discussed with public guardian, accepted at [facility]. 08/16 Patient was seen and examined. No acute events. Plans for discharge today. General: non toxic, no distress, appears at stated age Derm: warm, dry Head: atraumatic, normocephalic, symmetric Eyes: EOMI, no lid lag, anicteric sclera Mouth: no lip lesion, mucus membranes moist Cardiovascular: S1 S2 reg. No murmurs, rubs, gallops Lungs: Clear to auscultation bilaterally, no accessory muscle use Ext: no gross muscle atrophy, no edema, no contractures Neuro: no focal neuro deficits Psych: Alert, oriented x 1 Discharge Diagnosis: Acute metabolic encephalopathy, likely delirium in the setting of dementia Hallucinations, secondary to above Hypertension Hyperlipidemia Legally blind in bilateral eyes Resolved: Hypokalemia This complex discharge took 35 minutes to complete. Patient Condition at Discharge: Stable Plan - Discharge Summary Discharge Rx Participant: No New Discharge Prescriptions: No Action Pantoprazole [Protonix] 40 mg PO DAILY #30 tablet. amLODIPine [Norvasc] 10 mg PO DAILY Simvastatin [Zocor] 20 mg PO DAILY Cholecalciferol (Vitamin D3) [Vitamin D3 (50 Mcg = 2000 Iu)] 50 mcg PO DAILY Dorzolamide-Timol 2.23%/0.68% [Cosopt] 1 drop BOTH EYES BID Discharge Medication List Pantoprazole [Protonix] 40 mg PO DAILY #30 tablet. 12/04/19 [Rx] amLODIPine [Norvasc] 10 mg PO DAILY 01/03/23 [History] Cholecalciferol (Vitamin D3) [Vitamin D3 (50 Mcg = 2000 Iu)] 50 mcg PO DAILY 08/08/24 [History] Dorzolamide-Timol 2.23%/0.68% [Cosopt] 1 drop BOTH EYES BID 08/08/24 [History] Simvastatin [Zocor] 20 mg PO DAILY 08/08/24 [History] Follow up Appointment(s)/Referral(s): None,Stated [Primary Care Provider] - 1-2 days Patient Instructions/Handouts: Altered Mental Status (ED), Chronic Post Traumatic Headache (ED)
[2024-08-16 14:23] VITALS: BP 147/80; PULSE 65; RESP 16; TEMP 97.3
== END 2024-08-16 15:10 | DRG 884 ==
LOC: EC 09:28 → EEVIPCON 09:28 → 5NMEDONC 20:46 → OBSVTOIN 08-12 10:24
PROVIDERS: ADMIT Internal Medicine; ATTEND Internal Medicine
DX: F03.918 Unspecified dementia, unspecified severity, with other behavioral disturbance (principal); G93.41 Metabolic encephalopathy; F05 Delirium due to known physiological condition; E78.5 Hyperlipidemia, unspecified; H54.8 Legal blindness, as defined in USA; I10 Essential (primary) hypertension; E87.6 Hypokalemia; E87.8 Other disorders of electrolyte and fluid balance, not elsewhere classified; Z79.899 Other long term (current) drug therapy
CPT/HCPCS: 36415; 71046; 80048; 80053; 80306; 81003; 82607; 82746; 83735; 84443; 84484; 85025; 85027; 85610; 85730; 86780; 93005; 96361; 96372; 96374; 99285